=== PATIENT | female | born 1950 | race Caucasian/White ===

== ENCOUNTER → 2016-06-05 | Outpatient (CLI) | payer BC, MEDICARE ==
[2016-06-05 15:05] VITALS: BP 191/93; PULSE 75; RESP 16; TEMP 97.9; BMI 41.3
[2016-06-05 15:57] LABS: EKG EKG PERFORMED
[2016-06-05 16:23] LABS: CH 30.2; HDW 2.57; HGB 14.1 gm/dL (11.4-16.0); MCH 29.4 pg (25.0-35.0); MCHC 31.9 g/dL (31.0-37.0); MCV 91.9 fL (80.0-100.0); Mean Platelet Volume 7.3; RBC 4.79 m/uL (3.80-5.40); RDW 13.7 % (11.5-15.5); WBC 5.9 k/uL (3.8-10.6)
[2016-06-05 16:33] LABS: ALT 58 U/L (9-52); AST 32 U/L (14-36); Alkaline Phosphatase 72 U/L (38-126); Anion Gap 12 mmol/L; Blood Urea Nitrogen 11 mg/dL (7-17); Calcium 10.1 mg/dL (8.4-10.2); Carbon Dioxide 28 mmol/L (22-30); Chloride 105 mmol/L (98-107); Cholesterol 203 mg/dL (<200); Glucose 107 mg/dL (74-99); HDL Cholesterol 40 mg/dL (40-60); Iron 108 ug/dL (37-170); Non-African American GFR(MDRD) >60 (>60 ml/min/1.73 sqM); Potassium 4.7 mmol/L (3.5-5.1); Sodium 145 mmol/L (137-145); Total Bilirubin 0.7 mg/dL (0.2-1.3); Total Protein 7.5 g/dL (6.3-8.2); Triglycerides 219 mg/dL (<150)
[2016-06-05 16:42] LABS: % Iron Saturation 28.6 % (20-50); Total Iron Binding Capacity 378 ug/dL (265-497)
[2016-06-05 17:39] LABS: Vitamin B12 425 pg/mL (239-931)
[2016-06-05 19:48] LABS: Hemoglobin A1C 5.9 % (4.2-6.1)
[2016-06-07 06:42] LABS: Anabasine Urine <2.0 ng/mL (<2.0)
--- NOTE | 2016-07-14 19:48 | P.PN ---
Progress Note - Text DATE OF SERVICE: 06/05/2016 CHIEF COMPLAINT: Bariatric assessment. HISTORY OF PRESENT ILLNESS: Miladys Broussard is a 65-year-old female who presents for initial bariatric assessment. At a height of 5 foot and 1/2 inch, her ideal body weight is 127 pounds. She comes in weighing 215 pounds. Her body mass index is 41.3. As a result of her morbid obesity she has developed additional comorbidities such as hypertensive heart disease. She also has history of obstructive sleep apnea. She has complex pain syndrome. She does take thyroid for her hypothyroidism. She also has hyperlipidemia as a result. She complains of diffuse osteoarthritis. Now she presents for further evaluation and management. She is at present 88 pounds overweight. She is looking into a gastric bypass to address her obesity including the severity of her gastroesophageal reflux disease. PAST MEDICAL HISTORY: 1. Morbid obesity. 2. Gastroesophageal reflux disease. 3. Seasonal allergies. 4. Hypertensive heart disease. 5. Hypothyroidism. 6. Anxiety. 7. Osteoarthritis. 8. Vitamin D deficiency. 9. Hyperlipidemia. 10. Hiatal hernia 11. Previous history of breast cancer. 12. Kidney stones. 13. Stomach ulcers, 14. Fatty liver disease. 15. Diverticulitis. 16. Previous history of myocardial infarction. PAST SURGICAL HISTORY: 1. Heart catheterization. 2. Hysterectomy. 3. Tubal ligation. 4. Left breast lumpectomy. 5. Left laminectomy. 6. Partial hysterectomy. MEDICATIONS: 1. Zanaflex. 2. Vitamin B complex. 3. Cialis. 4. Prilosec. 5. Multivitamin. 6. ( ). 7. Claritin. 8. Lisinopril. 9. Synthroid. 10. ( ). 11. [place] 3. 12. Motrin. 13. Caromasin. 14. ( ). 15. Tenormin. 16. Aspirin. 17. Phenergan. 18. [place]. 19. Lipitor. 20. Tylenol. ALLERGIES: 1. PENICILLIN. 2. HOUSE DUST. 3. GRASS POLLEN. SOCIAL HISTORY: History of alcohol abuse including former tobacco use. FAMILY HISTORY: Pertinent for morbid obesity including hypertension, gastroesophageal reflux disease, heart disease. REVIEW OF SYSTEMS: CONSTITUTIONAL: [place] body weight is 127 pounds with 5 foot and 1/2 frame. Presently 215 pounds. She is 88 pounds overweight. HEENT: No troubles with vision or hearing. Has intermittent dysphagia to solid foods. ENDOCRINE: History of hypothyroidism. No reports of blood sugar glucose intolerance. RESPIRATORY: Former smoker with obstructive sleep apnea. CARDIOVASCULAR: Previous myocardial infarction. Hypertension. GASTROINTESTINAL: Has severe gastroesophageal reflux disease. No reports of blood in stools. MUSCULOSKELETAL: Has diffuse osteoarthritis. Also has fibromyalgia. NEURO: No reports of stroke or seizure disorders. PSYCH: History of depression including anxiety. HEMATOLOGIC: No reports of easy bruising or bleeding. PHYSICAL EXAM: VITAL SIGNS: 97.9, 75, 16, 191/93; 5 feet and 1/2 inch, weight of 215 pounds. Body mass index 41.3. GENERAL: Well-developed female in no acute distress. HEENT: No scleral icterus. Extraocular movements grossly intact. NECK: Supple without lymphadenopathy. CHEST: Nonlabored respirations. CARDIOVASCULAR: Regular rate and regular rhythm. ABDOMEN: Obese, soft without peritoneal signs. Tenderness noted along the lower abdomen. MUSCULOSKELETAL: No clubbing, cyanosis, or edema. NEURO: No focal or lateralizing signs. PSYCH: Affect flat. Alert and oriented to person, place, and time. LABS: Deferred. STUDIES: Upper endoscopy consistent with diaphragmatic hiatal hernia with Hill grade 4 lower esophageal valve. Pathology report consistent with chronic gastritis including gastric polyps. ASSESSMENT: 1. Morbid obesity due to excess calories. 2. Body mass index 41.3. 3. Anxiety. 4. Depression. 5. Gastroesophageal reflux disease. 6. Diaphragmatic hiatal hernia. 7. Obstructive sleep apnea. 8. Hypertensive heart disease. 9. Hypothyroidism. 10. Diffuse osteoarthritis. 11. Bilateral lower abdominal pain. 12. Fibromyalgia. 13. Erosive esophagitis. 14. Intra-abdominal adhesions. PLAN: 1. Recommend a complete bariatric metabolic panel to evaluate for nutritional deficiencies. 2. She has completed upper endoscopy with findings consistent with gastroesophageal reflux disease including erosive esophagitis and diaphragmatic hiatal hernia. Given the severity of her symptoms, surgical options including the gastric bypass was described at length. 3. The [place] [facility] outcomes calculator was reviewed in detail, including benefits and risks of all procedures. Again, she has elected for Raad-en-Y gastric bypass to correct her reflux disease including for her comorbidities related to her morbid obesity. 4. She is pending a psych assessment. 5. Will need a medical risk assessment. 6. Recommend EKG. 7. As she does report increasing low abdominal pain, would also recommend a diagnostic laparoscopy as she also has history of intestinal adhesions and intra-abdominal adhesions. 8. May also benefit from a CT of the abdomen and pelvis with regards to cause of abdominal pain as well. 9. Due to the severity of her abdominal pain, she has elected for a diagnostic laparoscopy. 10. Deep venous thrombosis prophylaxis. 11. Antibiotic prophylaxis. ADDENDUM: Metabolic panel was reviewed, demonstrating no evidence of anemia. Glucose was elevated at 107. Hemoglobin A1c was normal. ALT was elevated at 58. Triglycerides were elevated at 219. Cholesterol was elevated at 203. LDL was elevated at 119. Urine culture was negative. EKG was also obtained demonstrating and confirming a left bundle solis block with left axis deviation. Recommend cardiology risk assessment.
== END | disposition home or self-care (01) ==
LOC: BARWHC3 14:12
PROVIDERS: ATTEND Surgery Plastic and Reconstructive Surgery
DX: Z01.818 Encounter for other preprocedural examination (principal); E66.01 Morbid (severe) obesity due to excess calories; Z68.41 Body mass index [BMI] 40.0-44.9, adult; E89.1 Postprocedural hypoinsulinemia; D50.8 Other iron deficiency anemias; E44.0 Moderate protein-calorie malnutrition; E55.9 Vitamin D deficiency, unspecified; I11.9 Hypertensive heart disease without heart failure; G47.30 Sleep apnea, unspecified
CPT/HCPCS: 80053; 80061; 80323; 82306; 82607; 82728; 82746; 83036; 83540; 83550; 84425; 84443; 85027; 93005; 99201

== ENCOUNTER → 2016-06-17 | Outpatient (CLI) | payer BC, MEDICARE ==
[2016-06-17 10:41] LABS: Blood Urea Nitrogen 15 mg/dL (7-17); Non-African American GFR(MDRD) >60 (>60 ml/min/1.73 sqM)
--- NOTE | 2016-06-17 13:58 | CT ---
EXAMINATION TYPE: CT abdomen pelvis w con DATE OF EXAM: 06/17/2016 12:07 PM COMPARISON: NONE INDICATION: Mid abdomen pain DLP: 1762 mGycm, Automated exposure control for dose reduction was used. CONTRAST: 100 mL of Omnipaque 300. Study performed with Oral Contrast TECHNIQUE: Axial images were obtained from above the diaphragm to the pubic rami in the axial plane a t 5 mm thick sections. Reconstructed images are reviewed on the computer in the coronal plane. FINDINGS: Limited CT sections are obtained the lung bases. The lung bases are clear. CT ABDOMEN: Liver: There is mild fatty infiltration liver. Spleen: Normal Pancreas: Normal Adrenal glands: The adrenal glands are normal. Gallbladder: Normal Kidneys: No masses are evident. No hydronephrosis is present. No cysts are present. Delayed images were obtained through the kidneys, which remain unremarkable. Aorta: Normal Inferior vena cava: Normal. CT PELVIS: Loops of bowel within the abdomen and pelvis are normal. Multiple diverticuli are through the sigm oid colon. No acute diverticulitis is evident. There are loops of bowel which are incompletely disten ded or lack oral contrast limiting their evaluation. Appendix: Normal as visualized. Urinary bladder: Normal. Genitourinary structures: Osseous structures: No suspicious lytic or sclerotic lesions. IMPRESSIONS: 1. Sigmoid diverticulosis. 2. Mild fatty infiltration of the liver.
== END ==
LOC: RADCTMAIN 09:42
PROVIDERS: ATTEND Surgery Plastic and Reconstructive Surgery
DX: K57.30 Diverticulosis of large intestine without perforation or abscess without bleeding (principal); K76.0 Fatty (change of) liver, not elsewhere classified
CPT/HCPCS: 82565; 84520; 74177; 36415; Q9967

== ENCOUNTER → 2016-06-26 | Outpatient (CLI) | payer BC, MEDICARE ==
[2016-06-26 16:39] VITALS: BP 144/78; PULSE 68; RESP 16; TEMP 98.4; BMI 40.4
--- NOTE | 2016-07-31 00:05 | P.PN ---
Progress Note - Text DATE OF SERVICE: 06/26/2016 CHIEF COMPLAINT: Bariatric assessment. HISTORY OF PRESENT ILLNESS: Miladys Broussard is a 65-year-old female. She presented to the bariatric program one month ago. She reports that she has been trying to undergo weight loss for several years with minimal success. She also reports severe gastroesophageal reflux disease as well as sleep apnea and hypertension related to her morbid obesity. At her height of 5 feet and 1/2 inches, her ideal body weight is 127 pounds. Highest weight is 215 pounds. She has lost 5 pounds. Body mass index is 41.4 down to 40.4. PAST MEDICAL HISTORY: 1. Morbid obesity. 2. Gastroesophageal reflux disease. 3. Seasonal allergies. 4. Hypertensive heart disease. 5. Hypothyroidism. 6. Anxiety. 7. Osteoarthritis. 8. Vitamin D deficiency. 9. Hyperlipidemia. 10. Hiatal hernia 11. Previous history of breast cancer. 12. Kidney stones. 13. Stomach ulcers, 14. Fatty liver disease. 15. Diverticulitis. 16. Previous history of myocardial infarction. PAST SURGICAL HISTORY: 1. Heart catheterization. 2. Hysterectomy. 3. Tubal ligation. 4. Left breast lumpectomy. 5. Left laminectomy. 6. Partial hysterectomy. MEDICATIONS: 1. Zanaflex. 2. Vitamin D. 3. Cialis. 4. Phenergan. 5. Prilosec. 6. Multivitamin. 7. ( ). 8. Claritin. 9. Lisinopril. 10. Synthroid. 11. Lorazepam. 12. [place] 3. 13. Motrin. 14. Garlic.. 15. Aromasin. 16. Vitamin D. 17. Lipitor. 18. Tenormin. 19. Baby aspirin. 20. Tylenol. ALLERGIES: 1. PENICILLIN. 2. HOUSE DUST. 3. GRASS POLLEN. SOCIAL HISTORY: History of alcohol abuse including former tobacco use. FAMILY HISTORY: Pertinent for morbid obesity including hypertension, gastroesophageal reflux disease, heart disease. REVIEW OF SYSTEMS: CONSTITUTIONAL: Total weight loss of 5 pounds from 215 pounds to 210 pounds. [place] body weight of 127 pounds. Highest weight 215 pounds. Body mass index initially 41.4 down to 40.4. GASTROINTESTINAL: Has severe gastroesophageal reflux disease. Also reports multiple abdominal surgeries and worsening epigastric abdominal pain. RESPIRATORY: History of obstructive sleep apnea. HEENT: No troubles with vision or hearing. Has intermittent dysphagia to solid foods. ENDOCRINE: History of hypothyroidism. No reports of blood sugar glucose intolerance. CARDIOVASCULAR: Previous myocardial infarction. Hypertension. MUSCULOSKELETAL: Has diffuse osteoarthritis. Also has fibromyalgia. NEURO: No reports of stroke or seizure disorders. PSYCH: History of depression including anxiety. HEMATOLOGIC: No reports of easy bruising or bleeding. PHYSICAL EXAM: VITAL SIGNS: 98.4, 68, 16, 144/70; 5 feet and a half, 210 pounds. Body mass index of 40.4. ABDOMEN: Soft, tenderness along the epigastrium. No peritonitis. GENERAL: Well-developed female in no acute distress. HEENT: No scleral icterus. Extraocular movements grossly intact. NECK: Supple without lymphadenopathy. CHEST: Nonlabored respirations. CARDIOVASCULAR: Regular rate and regular rhythm. MUSCULOSKELETAL: No clubbing, cyanosis, or edema. NEURO: No focal or lateralizing signs. PSYCH: Affect flat. Alert and oriented to person, place, and time. LABS: Hemoglobin was normal at 14.1. Glucose was elevated at 107. Hemoglobin A1c was normal at 5.9. ALT was elevated at 58. Triglycerides elevated at 219. Cholesterol is elevated at 203. LDL was elevated at 119. EKG demonstrates left bundle branch block. ASSESSMENT: 1. Morbid obesity due to excess calories. 2. Body mass index reduced from 41.4 down to 40.4. 3. Anxiety. 4. Depression. 5. Severe gastroesophageal reflux disease. 6. Diaphragmatic hiatal hernia. 7. Obstructive sleep apnea. 8. Hypertensive heart disease. 9. Hypothyroidism. 10. Diffuse osteoarthritis. 11. Bilateral lower abdominal pain. 12. Fibromyalgia. 13. Erosive esophagitis. 14.History of multiple intra-abdominal surgeries. 15. Increased diffuse abdominal pain. 16. Abnormal EKG. PLAN: 1. Recommend pursuing a diagnostic laparoscopy. With a history of multiple abdominal surgeries, her pain is likely due to intestinal adhesions for abdominal pain. 2. She reports severe heartburn despite multiple medications to control her reflux. Surgical options between band, sleeve and Raad-en-Y gastric bypass were described in detail. [place] bariatric collaborative data was also reviewed in detail. She has elected for a gastric bypass. 3. Recommend treatment for obstructive sleep apnea. 4. I recommend also complete cardiac assessment with a history of abnormal. EKG. 5. Per insurance guidelines, will also continue with dietary surveillance and counseling. 6. Overall she has responded well, already losing 5 pounds.
== END | disposition home or self-care (01) ==
LOC: BARWHC3 13:59
PROVIDERS: ATTEND Surgery Plastic and Reconstructive Surgery
DX: Z01.818 Encounter for other preprocedural examination (principal); E66.01 Morbid (severe) obesity due to excess calories; Z68.41 Body mass index [BMI] 40.0-44.9, adult; G47.33 Obstructive sleep apnea (adult) (pediatric); I10 Essential (primary) hypertension; Z79.899 Other long term (current) drug therapy; Z88.0 Allergy status to penicillin; Z91.048 Other nonmedicinal substance allergy status; F41.9 Anxiety disorder, unspecified; F32.9 Major depressive disorder, single episode, unspecified; K44.9 Diaphragmatic hernia without obstruction or gangrene; I11.9 Hypertensive heart disease without heart failure; E03.9 Hypothyroidism, unspecified; M19.90 Unspecified osteoarthritis, unspecified site; R10.31 Right lower quadrant pain; R10.32 Left lower quadrant pain; M79.7 Fibromyalgia; K22.10 Ulcer of esophagus without bleeding; R94.31 Abnormal electrocardiogram [ECG] [EKG]; K21.0 Gastro-esophageal reflux disease with esophagitis; I44.7 Left bundle-branch block, unspecified; I25.2 Old myocardial infarction
CPT/HCPCS: 99211

== ENCOUNTER 2016-06-28 10:12 | Day surgery (SDC) | payer BC, MEDICARE ==
[2016-06-19 16:08] VITALS: BMI 39.1
--- NOTE | 2016-06-27 20:49 | P.GSHP ---
History of Present Illness H&P Date: 06/28/16 CHIEF COMPLAINT: History of intra-abdominal adhesions HISTORY OF PRESENT ILLNESS: The patient is a 65-year-old female who presents with history of intra-abdominal adhesions from multiple prior surgeries including increasing abdominal pain. She now presents for diagnostic laparoscopy including lysis of adhesions. PAST MEDICAL HISTORY: Please see list. PAST SURGICAL HISTORY: Please see list. MEDICATIONS: Please see list. ALLERGIES: Please see list. SOCIAL HISTORY: No illicit drug use FAMILY HISTORY: No reports of Crohn disease or ulcerative colitis. REVIEW OF ORGAN SYSTEMS: CONSTITUTIONAL: No reports of fevers or chills. GI: Denies any blood in stools or constipation. PHYSICAL EXAM: VITAL SIGNS: Stable GENERAL: Well-developed pleasant and in no acute distress. HEENT: No scleral icterus. Extraocular movements grossly intact. Moist buccal mucosa. NECK: Supple without lymphadenopathy. CHEST: Unlabored respirations. Equal bilateral excursions. CARDIOVASCULAR: Regular rate and rhythm. Distal 2+ pulses. ABDOMEN: Soft, diffuse abdominal tenderness. No peritonitis. MUSCULOSKELETAL: No clubbing, cyanosis, or edema. ASSESSMENT: 1. Diffuse abdominal pain. 2. History of multiple abdominal surgeries. 3. Intra-abdominal adhesions. PLAN: 1. Diagnostic laparoscopy with lysis of adhesions were described in detail including risk of injury to the intestine, need for further surgery, and open technique. 2. DVT prophylaxis. 3. Antibiotic prophylaxis. Past Medical History Past Medical History: Asthma, Cancer, Fibromyalgia, GERD/Reflux, Hyperlipidemia , Hypertension, Myocardial Infarction ([place]), Osteoarthritis (OA), Thyroid Disorder Additional Past Medical History / Comment(s): BREAST CANCER, IRREGULAR HEARTBEAT ,MACULAR DEGENERATION, KIDNEY STONE, Last Myocardial Infarction Date:: 2009 History of Any Multi-Drug Resistant Organisms: None Reported Past Surgical History: Heart Catheterization, Hysterectomy, Tubal Ligation Additional Past Surgical History / Comment(s): LT LUMPECTOMY AND LYMPH NODE REMOVED THYROID NODULE.SLYSIS OF ADHESIONS Past Anesthesia/Blood Transfusion Reactions: Motion Sickness Past Psychological History: Anxiety, Depression Smoking Status: Former smoker Past Alcohol Use History: Rare Additional Past Alcohol Use History / Comment(s): STARTED SMOKING AT AGE 25, SMOKED 1 PPD, QUIT 2009 Past Drug Use History: None Reported - Past Family History Father Family Medical History: Cancer, Myocardial Infarction ([place]) Additional Family Medical History / Comment(s): , LUNG CA Mother Family Medical History: Cancer, Hypertension Additional Family Medical History / Comment(s): SKIN CANCER Medications and Allergies Home Medications Medication Instructions Recorded Confirmed Type Atenolol [Tenormin] 25 mg PO DAILY 01/04/14 06/26/16 History Ibuprofen [Motrin] 800 mg PO BID PRN 01/04/14 06/26/16 History LORazepam [Lorazepam] 1 mg PO TID PRN 01/04/14 06/26/16 History Lisinopril [Lisinopril] 20 mg PO HS 01/04/14 06/26/16 History tiZANidine [Zanaflex] 4 mg PO BID PRN 01/04/14 06/26/16 History Aspirin [Adult Low Dose Aspirin EC] 81 mg PO DAILY 03/25/16 06/26/16 History Cholecalciferol [Vitamin D3] 1,000 unit PO DAILY 03/25/16 06/26/16 History Exemestane [Aromasin] 25 mg PO DAILY 03/25/16 06/26/16 History Garlic 1 each PO DAILY 03/25/16 06/26/16 History Krill/Om-3/Dha/Epa/Phospho/Ast 1 each PO DAILY 03/25/16 06/26/16 History [[place]-3 Krill Oil 300 mg Sfgl] Levothyroxine Sodium [Synthroid] 50 mcg PO DAILY 03/25/16 06/26/16 History Loratadine [Claritin] 10 mg PO DAILY 03/25/16 06/26/16 History Milk Thistle 175 mg PO BID 03/25/16 06/26/16 History Multivitamins, Thera [Multivitamin] 1 tab PO DAILY 03/25/16 06/26/16 History Omeprazole [PriLOSEC] 40 mg PO DAILY 03/25/16 06/26/16 History Vitamin B Complex 1 each PO DAILY 03/25/16 06/26/16 History Acetaminophen Tab [Tylenol Tab] 1,000 mg PO Q6HR PRN 06/19/16 06/26/16 History Atorvastatin [Lipitor] 80 mg PO HS 06/19/16 06/26/16 History Krtw-Bjlb-Alc 6.25-5-10Mg/5Ml 5 ml PO Q6H PRN 06/19/16 06/26/16 History [Phenergan VC with Codeine] Allergies Allergy/AdvReac Type Severity Reaction Status Date / Time Penicillins Allergy Dyspnea Verified 06/26/16 15:28 grass pollen-perennial rye, AdvReac Itching Verified 06/26/16 15:28 standar house dust AdvReac Itching Verified 06/26/16 15:28
[~2016-06-28 10:12] MED LIST: ACETAMINOPHEN IV (For NPO) 1,000 MG in EMPTY BAG 1 BAG IVPB ONE; DEXAMETHASONE SOD PHOSPHATE 10 MG/ML 1 ML VIAL IV ONE; HEPARIN SODIUM,PORCINE 5,000 UNIT/ML 1 ML VIAL SQ ONE; HYDROmorphone 1 MG/ML 1 ML SYRINGE IVP PRN; LACTATED RINGERS 1,000 ML IV SCH; MIDAZOLAM 2 MG/2 ML VIAL IV PRN; ONDANSETRON 4 MG/2 ML VIAL IVP ONE; Pre Op ABX Message 1 EACH MISC MISCELLANE ONE; SCOPOLAMINE 1.5MG/72HR PATCH TRANSDERM ONE
[2016-06-28] MEDS ORDERED: FAMOTIDINE 20 MG/2 ML VIAL IV STA (11:01)
[2016-06-28] MEDS ORDERED: LIDOCAINE 1% 20 ML VIAL (10MG/ML) FOR IV START INTRADERMA ONE ×2 (11:04→11:16)
[2016-06-28] MEDS ORDERED: LIDOCAINE 1% INJ 10MG/ML (20 ML MDV) ONE (11:37)
[2016-06-28] MEDS ORDERED: ROCURONIUM BROMIDE 10 MG/ML 10 ML VIAL IV ONE (11:37)
[2016-06-28] MEDS ORDERED: SUCCINYLCHOLINE CHLORIDE 100 MG/5 ML SYR IV ONE (11:37)
[2016-06-28] MEDS ORDERED: GLYCOPYRROLATE 0.2 MG/ML 2 ML VIAL ONE (11:37)
[2016-06-28] MEDS ORDERED: MIDAZOLAM 2 MG/2 ML VIAL ONE (11:37)
[2016-06-28] MEDS ORDERED: fentaNYL (PF) 50 MCG/ML 2 ML AMP ONE (11:37)
[2016-06-28] MEDS ORDERED: PROPOFOL 10 MG/ML 20 ML VIAL IV ONE (11:37)
[2016-06-28] MEDS ORDERED: NEOSTIGMINE 1 MG/ML 10 ML VIAL ONE (11:37)
[2016-06-28] MEDS ORDERED: SODIUM CHLORIDE 0.9% 50 ML with ceFAZolin 2,000 MG IV ONE ×2 (12:04)
[2016-06-28] MEDS ORDERED: BUPIVACAIN-EPI 0.25%-1:200,000 30 ML VIAL SQ ONE (12:14)
[2016-06-28] MEDS ORDERED: NALOXONE 0.4 MG/ML 1 ML VIAL IV PRN (12:33)
[2016-06-28] MEDS ORDERED: HYDROcodone/APAP 5-325MG 1 EACH TAB PO PRN (12:33)
--- NOTE | 2016-06-28 12:33 | P.PCN ---
Date of Procedure: 06/28/16 Preoperative Diagnosis: Diffuse abdominal pain, history of abdominal surgery, peritoneal adhesions Postoperative Diagnosis: Same, peritoneal adhesions greater omentum to the lower abdominal wall, incisional hernia reducible, initial Procedure(s) Performed: Laparoscopic lysis of adhesions Anesthesia: GETA, local Surgeon: Analisa Savage Estimated Blood Loss (ml): 2 Pathology: none sent Condition: stable Disposition: PACU Operative Findings: Diffuse abdominal adhesions greater omentum to the lower abdominal wall. Reducible incisional hernia 2 cm without incarcerated tissue. No large hiatus defect.
[2016-06-28] MEDS ORDERED: KETOROLAC 30 MG/ML 1 ML VIAL IVP SCH (12:45)
[2016-06-28 12:48] VITALS: TEMP 97.6
[2016-06-28 13:50] VITALS: RESP 18
[2016-06-28] MEDS ORDERED: HYDROcodone/APAP 5-325MG 1 EACH TAB PO ONE (13:50)
[2016-06-28 14:01] VITALS: PULSE 56
[2016-06-28 14:08] VITALS: BP 112/62
--- NOTE | 2016-06-29 22:12 | P.OP ---
Date of Procedure: 06/28/16 Description of Procedure: SURGEON: TOSHA SANCHEZ MD DONOR RECRUITMENT MANAGER: YUE GIORDANO PREOPERATIVE DIAGNOSES: 1. Diffuse abdominal pain. 2. History of previous abdominal surgery 3. Peritoneal adhesions. 4. Asthma. 5. Morbid obesity due to excess calories. 6. BMI 39.1 7. Gastroesophageal reflux disease. 8. Hyperlipidemia. 9. Myocardial infarction. 10. Thyroid disorder. 11. Osteoarthritis. 12. History of breast cancer. 13. Macular degeneration. 14. History of chronic pain. 15. History of kidney stones. 16. Anxiety. 17. Depression. 18. Hypertensive heart disease with cardiomyopathy. 19. Fibromyalgia. 20. Hyperlipidemia. POSTOPERATIVE DIAGNOSES: 1. Diffuse abdominal pain. 2. History of previous abdominal surgery 3. Peritoneal adhesions. 4. Asthma. 5. Morbid obesity due to excess calories. 6. BMI 39.1 7. Gastroesophageal reflux disease. 8. Hyperlipidemia. 9. Myocardial infarction. 10. Thyroid disorder. 11. Osteoarthritis. 12. History of breast cancer. 13. Macular degeneration. 14. History of chronic pain. 15. History of kidney stones. 16. Anxiety. 17. Depression. 18. Severe left lower quadrant omentum to abdominal wall adhesions. 19. Severe right lower quadrant greater omentum to abdominal adhesions. 20. Reducible incisional hernia, initial. 21. Hypertensive heart disease with cardiomyopathy. 22. Fibromyalgia. 23. Hyperlipidemia. PROCEDURES PERFORMED: 1. Diagnostic laparoscopy. 2. Laparoscopic lysis of adhesions over 60 minutes of abdominal wall and omentum , left lower quadrant and right lower quadrant. ANESTHESIA: General with 30 mL 0.25% Marcaine with epinephrine. ESTIMATED BLOOD LOSS: 2 mL. SPECIMENS REMOVED: None. COMPLICATIONS: None. OPERATIVE FINDINGS: 1. Severe greater omental adhesions to the abdominal wall of the left lower quadrant. 2. Severe greater omental adhesions of the right lower quadrant to abdominal wall from prior pelvic surgery. 3. Reducible incisional hernia 3 cm without incarcerated tissue. 4. No large hiatus defect. INDICATIONS: The patient is a 65-year-old female who presents with chronic abdominal pain including prior history of severe intra-abdominal adhesions of the abdomen and pelvis. She has developed increased abdominal gas bloat including bilateral lower quadrant abdominal pain for which she sought surgical intervention. Multiple diagnostic studies were also obtained including endoscopies were completed. Given the severity of her symptoms, she elected for surgical intervention. Benefits and risks, including possibility of open technique were described at length. Informed consent was obtained. DESCRIPTION OF PROCEDURE: Patient was brought to the operating room, laid in supine position. After general induction, the abdomen was prepped and draped in standard sterile fashion. Prior to incision, a timeout protocol was confirmed with surgical team regarding patient's name including procedure to be performed. Preoperative medications including antibiotics were given. Additionally, bilateral SCDs including heparin 5000 units was administered. A 5 mm laparoscopic trocar entry performed of the left upper quadrant after anesthetizing the skin with local anesthetic. Diagnostic laparoscopy demonstrated moderate adhesions of the left lower pelvis as well as the right lower quadrant. No gross small bowel dilatation was encountered. Primarily greater omental adhesions were found of the left lower quadrant and right lower quadrant. Two additional 5-mm trocars were placed: one placed along the right lateral abdominal wall and the other at the epigastrium. The patient was placed in Trendelenburg position with the right side up. Initial attention was brought to the left lower quadrant whereby using a combination of blunt dissection with a Kittner as well as sharp dissection with a Sonicision and scissors were used to take the omental adhesions off the abdominal wall and pelvis. No enterotomy or colotomy had occured as the bowel was not involved. Along the abdominal wall, a reducible 3-cm incisional defect at the umbilicus was found. The base of the cecum was without inflammation. No enterotomies occurred. No evidence of bowel obstruction or small bowel dilatation was found. Final inspection of the abdomen demonstrated adequate hemostasis including no enterotomies. All instruments and pneumoperitoneum were evacuated from the abdominal cavity. A total of 30 mL 0.25% Marcaine with epinephrine was infiltrated in all wounds for postop analgesia. Dermabond was applied to the skin after reapproximating the incisions with 4-0 Monocryl as described. At the end of the procedure, needle, sponge, and instrument count was verified correct by transportation refrigeration technician. The patient had tolerated the procedure well, was taken to the postanesthesia care unit in stable condition. Intraoperative abdominal films were described and discussed with her family who were overall pleased with her level of care.
== END 2016-06-28 14:30 | disposition home or self-care (01) ==
LOC: OR 10:12
PROVIDERS: ATTEND Surgery Plastic and Reconstructive Surgery
DX: K66.0 Peritoneal adhesions (postprocedural) (postinfection) (principal); I25.10 Atherosclerotic heart disease of native coronary artery without angina pectoris; I10 Essential (primary) hypertension; F41.9 Anxiety disorder, unspecified; E78.5 Hyperlipidemia, unspecified; E07.9 Disorder of thyroid, unspecified; K21.9 Gastro-esophageal reflux disease without esophagitis; M79.7 Fibromyalgia; I25.2 Old myocardial infarction; Z88.0 Allergy status to penicillin; Z87.891 Personal history of nicotine dependence; Z85.3 Personal history of malignant neoplasm of breast; Z79.1 Long term (current) use of non-steroidal anti-inflammatories (NSAID); Z79.891 Long term (current) use of opiate analgesic; Z79.899 Other long term (current) drug therapy
CPT/HCPCS: 83735; 49329; J2250; J1644; J1100; J2710; J2405; J2001; J3010; J0690; J0131; J0330; J2704

== ENCOUNTER → 2016-08-19 | Outpatient (CLI) | payer BC, MEDICARE ==
[2016-08-19 13:17] VITALS: BMI 41.6
== END | disposition home or self-care (01) ==
LOC: BARWHC3 08:45
PROVIDERS: ATTEND Surgery Plastic and Reconstructive Surgery
DX: E66.01 Morbid (severe) obesity due to excess calories (principal)
CPT/HCPCS: 97804

== ENCOUNTER → 2016-09-18 | Outpatient (CLI) | payer BC, MEDICARE ==
[2016-09-18 16:06] VITALS: BP 186/92; PULSE 72; RESP 16; TEMP 98.2; BMI 41.8
--- NOTE | 2016-10-19 12:11 | P.PN ---
Progress Note - Text DATE OF SERVICE: 09/18/2016 CHIEF COMPLAINT: Bariatric assessment. HISTORY OF PRESENT ILLNESS: Miladys Broussard is a 55 year old female with longstanding history of morbid obesity including severe gastroesophageal reflux disease. She developed several comorbidities related to her obesity as well as hypertension, osteoarthritis of the bilateral hips and knees as well as obstructive sleep apnea. Given the severity of her reflux disease, she is also evaluating for the Raad-En-Y gastric bypass. At her height of 5 feet 1 1/ 2 inches, her ideal body weight is 131 pounds. For her weight today she comes in weighing 225 pounds. Body mass index is now 41.8. Now she presents for further evaluation and management. She is 94 pounds overweight. PAST MEDICAL HISTORY: 1. Morbid obesity. 2. Gastroesophageal reflux disease. 3. Seasonal allergies. 4. Hypertensive heart disease. 5. Hypothyroidism. 6. Anxiety. 7. Osteoarthritis. 8. Vitamin D deficiency. 9. Hyperlipidemia. 10. Hiatal hernia 11. Previous history of breast cancer. 12. Kidney stones. 13. Stomach ulcers, 14. Fatty liver disease. 15. Diverticulitis. 16. Previous history of myocardial infarction. PAST SURGICAL HISTORY: 1. Heart catheterization. 2. Hysterectomy. 3. Tubal ligation. 4. Left breast lumpectomy. 5. Left laminectomy. 6. Partial hysterectomy. 7. Diagnostic laparoscopy, lysis of adhesions. MEDICATIONS: 1. Zanaflex. 2. Vitamin B complex. 3. Prilosec. 4. Multivitamin. 5. ( ). 6. Claritin. 7. Lisinopril. 8. Synthroid. 9. Lorazepam. 10. [place]-3. 11. Motrin. 12. Garlic. 13. Aromasin. 14. Vitamin D. 15. Lipitor. 16. Tenormin. 17. Baby aspirin. ALLERGIES: 1. PENICILLIN. 2. HOUSE DUST. 3. GRASS POLLEN. SOCIAL HISTORY: History of alcohol abuse including former tobacco use. FAMILY HISTORY: Pertinent for morbid obesity including hypertension, gastroesophageal reflux disease, heart disease. REVIEW OF SYSTEMS: CONSTITUTIONAL: Highest present weight of 225 pounds. Body mass index 41.8. She is 94 pounds overweight. [place] body weight of 127 pounds. GASTROINTESTINAL: Has severe gastroesophageal reflux disease. Also reports multiple abdominal surgeries and worsening epigastric abdominal pain. RESPIRATORY: History of obstructive sleep apnea. HEENT: No troubles with vision or hearing. Has intermittent dysphagia to solid foods. ENDOCRINE: History of hypothyroidism. No reports of blood sugar glucose intolerance. CARDIOVASCULAR: Previous myocardial infarction. Hypertension. MUSCULOSKELETAL: Has diffuse osteoarthritis. Also has fibromyalgia. NEURO: No reports of stroke or seizure disorders. PSYCH: History of depression including anxiety. HEMATOLOGIC: No reports of easy bruising or bleeding. PHYSICAL EXAM: VITAL SIGNS: 98.2, 73, 16, 106/92, 5 feet 1.5 inches, 225 pounds. Body mass index 41.8. ABDOMEN: Abdomen is soft, nontender, nondistended. GENERAL: Well-developed female in no acute distress. HEENT: No scleral icterus. Extraocular movements grossly intact. NECK: Supple without lymphadenopathy. CHEST: Nonlabored respirations. CARDIOVASCULAR: Regular rate and regular rhythm. MUSCULOSKELETAL: No clubbing, cyanosis, or edema. NEURO: No focal or lateralizing signs. PSYCH: Affect flat. Alert and oriented to person, place, and time. Labs: Previous hemoglobin normal at 14.1. ALT elevated at 58. Triglycerides elevated at 219, cholesterol elevated at 203. LDL elevated at 119. Hemoglobin A1C was 5.9%. ASSESSMENT: 1. Morbid obesity due to excess calories. 2. Body mass index 41.8. 3. Anxiety. 4. Depression. 5. Severe gastroesophageal reflux disease. 6. Diaphragmatic hiatal hernia. 7. Obstructive sleep apnea. 8. Hypertensive heart disease. 9. Hypothyroidism. 10. Diffuse osteoarthritis. 11. Bilateral lower abdominal pain. 12. Fibromyalgia. 13. Erosive esophagitis. 14.History of multiple intra-abdominal surgeries. 15. Abnormal EKG. 16. Metabolic syndrome. PLAN: 1. She has gone thru medical supervised weight loss and despite attempts, still presents with morbid obesity, uncontrolled. 2. She is pending cardiac risk assessment with her consulting marine engineer. 3. Surgical intervention among a band, sleeve and Raad-En-Y gastric bypass were reviewed in detail. She has elected for Raad-En-Y gastric bypass. 4. Benefits and risks of surgical intervention was reviewed in detail including leaks, stricture, nutritional deficiencies as well as infection. 5. Recommend inpatient hospitalization greater than two nights. 6. DVT prophylaxis. 7. Antibiotic prophylaxis. 8. Recommend treatment for obstructive sleep apnea. 9. Recommend proceeding with surgical intervention once cardiac risk assessment is completed.
== END | disposition home or self-care (01) ==
LOC: BARWHC3 15:00
PROVIDERS: ATTEND Surgery Plastic and Reconstructive Surgery
DX: Z48.815 Encounter for surgical aftercare following surgery on the digestive system (principal); E66.01 Morbid (severe) obesity due to excess calories; F41.9 Anxiety disorder, unspecified; F32.9 Major depressive disorder, single episode, unspecified; K21.9 Gastro-esophageal reflux disease without esophagitis; K44.9 Diaphragmatic hernia without obstruction or gangrene; G47.33 Obstructive sleep apnea (adult) (pediatric); I11.9 Hypertensive heart disease without heart failure; E03.9 Hypothyroidism, unspecified; M19.90 Unspecified osteoarthritis, unspecified site; M79.1 Myalgia; K20.9 Esophagitis, unspecified; E55.9 Vitamin D deficiency, unspecified; E78.5 Hyperlipidemia, unspecified; Z79.1 Long term (current) use of non-steroidal anti-inflammatories (NSAID); Z79.899 Other long term (current) drug therapy; Z79.811 Long term (current) use of aromatase inhibitors; Z79.82 Long term (current) use of aspirin; Z88.0 Allergy status to penicillin; Z91.048 Other nonmedicinal substance allergy status; Z68.41 Body mass index [BMI] 40.0-44.9, adult; Z98.84 Bariatric surgery status
CPT/HCPCS: 99211

== ENCOUNTER → 2016-10-09 | Outpatient (CLI) | payer BC, MEDICARE ==
[2016-10-09 16:33] VITALS: BP 127/60; PULSE 82; RESP 16; TEMP 98; BMI 41.5
--- NOTE | 2016-10-23 16:06 | P.PN ---
Progress Note - Text DATE OF SERVICE: 10/09/2016 CHIEF COMPLAINT: Bariatric assessment. HISTORY OF PRESENT ILLNESS: Miladys Broussard is a 65 year old female with morbid obesity and severe gastroesophageal reflux disease. She has developed hypertension, osteoarthritis of the bilateral hips and knees as well as obstructive sleep apnea. Given the severity of her reflux disease, she is also evaluating for the Raad-En-Y gastric bypass. She is currently on a high- protein low caloric diet to address packed medically and to accelerate weight loss. At her height of 5 feet 1 1/2 inches, her ideal body weight is 131 pounds. For her weight today she comes in weighing 223 pounds. She has lost 2 pounds in 3 weeks. Body mass index is now 41.5. She is 92 pounds overweight. PAST MEDICAL HISTORY: 1. Morbid obesity. 2. Gastroesophageal reflux disease. 3. Seasonal allergies. 4. Hypertensive heart disease. 5. Hypothyroidism. 6. Anxiety. 7. Osteoarthritis. 8. Vitamin D deficiency. 9. Hyperlipidemia. 10. Hiatal hernia 11. Previous history of breast cancer. 12. Kidney stones. 13. Stomach ulcers, 14. Fatty liver disease. 15. Diverticulitis. 16. Previous history of myocardial infarction. PAST SURGICAL HISTORY: 1. Heart catheterization. 2. Hysterectomy. 3. Tubal ligation. 4. Left breast lumpectomy. 5. Left laminectomy. 6. Partial hysterectomy. 7. Diagnostic laparoscopy, lysis of adhesions. MEDICATIONS: 1. Zanaflex. 2. Vitamin B complex. 3. Prilosec. 4. Multivitamin. 5. ( ). 6. Claritin. 7. Lisinopril. 8. Synthroid. 9. Lorazepam. 10. [place]-3. 11. Motrin. 12. Garlic. 13. Aromasin. 14. Vitamin D. 15. Lipitor. 16. Tenormin. 17. Baby aspirin. ALLERGIES: 1. PENICILLIN. 2. HOUSE DUST. 3. GRASS POLLEN. SOCIAL HISTORY: History of alcohol abuse including former tobacco use. FAMILY HISTORY: Pertinent for morbid obesity including hypertension, gastroesophageal reflux disease, heart disease. REVIEW OF SYSTEMS: CONSTITUTIONAL: At her height of 5 feet 1 1/2 inches, her ideal body weight is 131 pounds. For her weight today she comes in weighing 223 pounds. She has lost 2 pounds in 3 weeks. Body mass index is now 41.5. She is 92 pounds overweight. GASTROINTESTINAL: Has severe gastroesophageal reflux disease. Also reports multiple abdominal surgeries and worsening epigastric abdominal pain. RESPIRATORY: History of obstructive sleep apnea. HEENT: No troubles with vision or hearing. Has intermittent dysphagia to solid foods. ENDOCRINE: History of hypothyroidism. No reports of blood sugar glucose intolerance. CARDIOVASCULAR: Previous myocardial infarction. Hypertension. MUSCULOSKELETAL: Has diffuse osteoarthritis. Also has fibromyalgia. NEURO: No reports of stroke or seizure disorders. PSYCH: History of depression including anxiety. HEMATOLOGIC: No reports of easy bruising or bleeding. PHYSICAL EXAM: VITAL SIGNS: 5 feet 1.5 inches, 223 pounds. Body mass index 41.5. Vital Signs Temp 98.0 F 10/09/16 16:29 Pulse 82 10/09/16 16:29 Resp 16 10/09/16 16:29 BP 127/60 10/09/16 16:29 Pulse Ox ABDOMEN: Abdomen is soft, nontender, nondistended. GENERAL: Well-developed female in no acute distress. HEENT: No scleral icterus. Extraocular movements grossly intact. NECK: Supple without lymphadenopathy. CHEST: Nonlabored respirations. CARDIOVASCULAR: Regular rate and regular rhythm. MUSCULOSKELETAL: No clubbing, cyanosis, or edema. NEURO: No focal or lateralizing signs. PSYCH: Affect flat. Alert and oriented to person, place, and time. Labs: Previous hemoglobin normal at 14.1. ALT elevated at 58. Triglycerides elevated at 219, cholesterol elevated at 203. LDL elevated at 119. Hemoglobin A1C was 5.9%. ASSESSMENT: 1. Morbid obesity due to excess calories. 2. Body mass index 41.5. 3. Anxiety. 4. Depression. 5. Severe gastroesophageal reflux disease. 6. Diaphragmatic hiatal hernia. 7. Obstructive sleep apnea. 8. Hypertensive heart disease. 9. Hypothyroidism. 10. Diffuse osteoarthritis. 11. Bilateral lower abdominal pain. 12. Fibromyalgia. 13. Erosive esophagitis. 14. History of multiple intra-abdominal surgeries. 15. Abnormal EKG. 16. History of peritoneal adhesions. PLAN: 1. Recommend completion of medical risk assessment. 2. Two-week high-protein low caloric diet to address hepatomegaly. 3. She has a symptomatic diaphragmatic hernia which may be repaired time of her operation. 4. An 8 page second-generation bariatric consent form was reviewed in detail. She is elected for a Raad-en-Y gastric bypass. 5. Inpatient hospitalization over 2 days. 6. DVT prophylaxis. 7. Antibiotic prophylaxis. 8. Possibility of robotic approach was also reviewed.
== END | disposition home or self-care (01) ==
LOC: BARWHC3 16:04
PROVIDERS: ATTEND Surgery Plastic and Reconstructive Surgery
DX: Z48.815 Encounter for surgical aftercare following surgery on the digestive system (principal); E66.01 Morbid (severe) obesity due to excess calories; Z68.41 Body mass index [BMI] 40.0-44.9, adult; F41.9 Anxiety disorder, unspecified; F32.9 Major depressive disorder, single episode, unspecified; K21.9 Gastro-esophageal reflux disease without esophagitis; K44.9 Diaphragmatic hernia without obstruction or gangrene; G47.33 Obstructive sleep apnea (adult) (pediatric); I11.9 Hypertensive heart disease without heart failure; E03.9 Hypothyroidism, unspecified; J30.2 Other seasonal allergic rhinitis; E55.9 Vitamin D deficiency, unspecified; E78.5 Hyperlipidemia, unspecified; Z79.899 Other long term (current) drug therapy; Z79.1 Long term (current) use of non-steroidal anti-inflammatories (NSAID); Z79.811 Long term (current) use of aromatase inhibitors; Z79.82 Long term (current) use of aspirin; Z88.0 Allergy status to penicillin; Z91.048 Other nonmedicinal substance allergy status; Z98.84 Bariatric surgery status
CPT/HCPCS: 99211

== ENCOUNTER 2016-11-08 13:05 | Inpatient (IN) | payer BC, MEDICARE ==
[2016-11-21] MEDS ORDERED: GENTAMICIN 360 MG in SODIUM CHLORIDE 0.9% 100 ML IVPB ONE (05:00)
[2016-11-21] MEDS ORDERED: CLINDAMYCIN 900 MG in DEXTROSE 5% IN WATER 50 ML IVPB ONE ×2 (05:00)
[2016-11-21] MEDS ORDERED: MIDAZOLAM 2 MG/2 ML VIAL IV PRN (05:56)
[2016-11-21] MEDS ORDERED: SCOPOLAMINE 1.5MG/72HR PATCH TRANSDERM ONE (05:56)
[2016-11-21] MEDS ORDERED: LIDOCAINE 1% 20 ML VIAL (10MG/ML) FOR IV START INTRADERMA PRN (05:56)
[2016-11-21] MEDS ORDERED: HYDROmorphone 1 MG/ML 1 ML SYRINGE IVP PRN (05:56)
[2016-11-21] MEDS ORDERED: CHLORHEXIDINE GLUCONATE 15 ML CUP MUCOUS MEM ONE (05:56)
[2016-11-21] MEDS ORDERED: DEXAMETHASONE SOD PHOSPHATE 10 MG/ML 1 ML VIAL IV ONE (05:56)
--- NOTE | 2016-11-21 06:22 | P.GSHP ---
History of Present Illness H&P Date: 11/21/16 CHIEF COMPLAINT: Morbid obesity. HISTORY OF PRESENT ILLNESS: Miladys Broussard is a 65 year old female with morbid obesity and severe gastroesophageal reflux disease. She has developed hypertension, osteoarthritis of the bilateral hips and knees as well as obstructive sleep apnea. Given the severity of her reflux disease, she is evaluating for the Raad-En-Y gastric bypass. At her height of 5 feet 1 1/2 inches, her ideal body weight is 131 pounds. For her previous weight she came in weighing 223 pounds. Body mass index was now 41.5. PAST MEDICAL HISTORY: 1. Morbid obesity. 2. Gastroesophageal reflux disease. 3. Seasonal allergies. 4. Hypertensive heart disease. 5. Hypothyroidism. 6. Anxiety. 7. Osteoarthritis. 8. Vitamin D deficiency. 9. Hyperlipidemia. 10. Hiatal hernia 11. Previous history of breast cancer. 12. Kidney stones. 13. Stomach ulcers, 14. Fatty liver disease. 15. Diverticulitis. 16. Previous history of myocardial infarction. PAST SURGICAL HISTORY: 1. Heart catheterization. 2. Hysterectomy. 3. Tubal ligation. 4. Left breast lumpectomy. 5. Left laminectomy. 6. Partial hysterectomy. 7. Diagnostic laparoscopy, lysis of adhesions. MEDICATIONS: 1. Zanaflex. 2. Vitamin B complex. 3. Prilosec. 4. Multivitamin. 5. ( ). 6. Claritin. 7. Lisinopril. 8. Synthroid. 9. Lorazepam. 10. [place]-3. 11. Motrin. 12. Garlic. 13. Aromasin. 14. Vitamin D. 15. Lipitor. 16. Tenormin. 17. Baby aspirin. ALLERGIES: 1. PENICILLIN. 2. HOUSE DUST. 3. GRASS POLLEN. SOCIAL HISTORY: History of alcohol abuse including former tobacco use. FAMILY HISTORY: Pertinent for morbid obesity including hypertension, gastroesophageal reflux disease, heart disease. REVIEW OF SYSTEMS: CONSTITUTIONAL: At her height of 5 feet 1 1/2 inches, her ideal body weight is 131 pounds. For her weight today she comes in weighing 223 pounds. She has lost 2 pounds in 3 weeks. Body mass index is now 41.5. She is 92 pounds overweight. GASTROINTESTINAL: Has severe gastroesophageal reflux disease. Also reports multiple abdominal surgeries and worsening epigastric abdominal pain. RESPIRATORY: History of obstructive sleep apnea. HEENT: No troubles with vision or hearing. Has intermittent dysphagia to solid foods. ENDOCRINE: History of hypothyroidism. No reports of blood sugar glucose intolerance. CARDIOVASCULAR: Previous myocardial infarction. Hypertension. MUSCULOSKELETAL: Has diffuse osteoarthritis. Also has fibromyalgia. NEURO: No reports of stroke or seizure disorders. PSYCH: History of depression including anxiety. HEMATOLOGIC: No reports of easy bruising or bleeding. PHYSICAL EXAM: VITAL SIGNS: 5 feet 1.5 inches, 223 pounds. Body mass index 41.5. ABDOMEN: Abdomen is soft, nontender, nondistended. GENERAL: Well-developed female in no acute distress. HEENT: No scleral icterus. Extraocular movements grossly intact. NECK: Supple without lymphadenopathy. CHEST: Nonlabored respirations. CARDIOVASCULAR: Regular rate and regular rhythm. MUSCULOSKELETAL: No clubbing, cyanosis, or edema. NEURO: No focal or lateralizing signs. PSYCH: Affect flat. Alert and oriented to person, place, and time. Labs: Previous hemoglobin normal at 14.1. ALT elevated at 58. Triglycerides elevated at 219, cholesterol elevated at 203. LDL elevated at 119. Hemoglobin A1C was 5.9%. ASSESSMENT: 1. Morbid obesity due to excess calories. 2. Body mass index 41.5. 3. Anxiety. 4. Depression. 5. Severe gastroesophageal reflux disease. 6. Diaphragmatic hiatal hernia. 7. Obstructive sleep apnea. 8. Hypertensive heart disease. 9. Hypothyroidism. 10. Diffuse osteoarthritis. 11. Bilateral lower abdominal pain. 12. Fibromyalgia. 13. Erosive esophagitis. 14. History of multiple intra-abdominal surgeries. 15. Abnormal EKG. 16. History of peritoneal adhesions. PLAN: 1. Recommend completion of medical risk assessment. 2. Two-week high-protein low caloric diet to address hepatomegaly. 3. She has a symptomatic diaphragmatic hernia which may be repaired time of her operation. 4. An 8 page second-generation bariatric consent form was reviewed in detail. She is elected for a Raad-en-Y gastric bypass. 5. Inpatient hospitalization over 2 days. 6. DVT prophylaxis. 7. Antibiotic prophylaxis. 8. Possibility of robotic approach was also reviewed. 9. She has completed cardiac risk assessment and clearance. Past Medical History Past Medical History: Asthma, Cancer, Fibromyalgia, GERD/Reflux, Hyperlipidemia , Hypertension, Liver Disease, Myocardial Infarction (MD), Osteoarthritis (OA), Skin Disorder, Sleep Apnea/CPAP/BIPAP, Thyroid Disorder Additional Past Medical History / Comment(s): BREAST CANCER, IRREGULAR HEARTBEAT ,MACULAR DEGENERATION, hx KIDNEY STONE, heart [place], palpitations, no cpap used , hiatal hernia, IBS, fatty liver, eczema, urinary leakage, serena carpal tunnel, recent fx rt foot-surgery 7 weeks ago(boot off now) Last Myocardial Infarction Date:: 2008 History of Any Multi-Drug Resistant Organisms: None Reported Past Surgical History: Heart Catheterization, Hysterectomy, Orthopedic Surgery, Tubal Ligation Additional Past Surgical History / Comment(s): LT BREAST LUMPECTOMY AND LYMPH NODE REMOVED, THYROID NODULE, LYSIS OF ADHESIONS, surgery for fx rt foot 7 weeks ago Past Anesthesia/Blood Transfusion Reactions: Motion Sickness Smoking Status: Former smoker - Past Family History Father Family Medical History: Cancer, Deep Vein Thrombosis (DVT) Additional Family Medical History / Comment(s): . Mother Family Medical History: Cancer Additional Family Medical History / Comment(s): SKIN CANCER Medications and Allergies Home Medications Medication Instructions Recorded Confirmed Type Atenolol [Tenormin] 25 mg PO DAILY 01/04/14 11/15/16 History Lisinopril [Lisinopril] 20 mg PO HS 01/04/14 11/15/16 History tiZANidine [Zanaflex] 4 mg PO BID PRN 01/04/14 11/15/16 History Aspirin [Adult Low Dose Aspirin EC] 81 mg PO DAILY 03/25/16 11/15/16 History Cholecalciferol [Vitamin D3] 1,000 unit PO DAILY 03/25/16 11/15/16 History Krill/Om-3/Dha/Epa/Phospho/Ast 1 each PO DAILY 03/25/16 11/15/16 History [[place]-3 Krill Oil 300 mg Sfgl] Levothyroxine Sodium [Synthroid] 50 mcg PO DAILY 03/25/16 11/15/16 History Loratadine [Claritin] 10 mg PO DAILY 03/25/16 11/15/16 History Milk Thistle 175 mg PO BID 03/25/16 11/15/16 History Multivitamins, Thera [Multivitamin] 1 tab PO DAILY 03/25/16 11/15/16 History Vitamin B Complex 1 each PO DAILY 03/25/16 11/15/16 History DULoxetine HCL [Cymbalta] 60 mg PO BID 11/15/16 11/15/16 History Exemestane [Aromasin] 25 mg PO DAILY 11/15/16 11/15/16 History LORazepam [Ativan] 1 mg PO BID 11/15/16 11/15/16 History Montelukast [Singulair] 10 mg PO HS 11/15/16 11/15/16 History Pravastatin Sodium [Pravachol] 40 mg PO HS 11/15/16 11/15/16 History Ranitidine HCl [Zantac] 150 mg PO BID 11/15/16 11/15/16 History Allergies Allergy/AdvReac Type Severity Reaction Status Date / Time Penicillins Allergy Dyspnea Verified 11/15/16 10:48 grass pollen-perennial rye, AdvReac Itching Verified 11/15/16 10:48 standar house dust AdvReac Itching Verified 11/15/16 10:48
[2016-11-21] MEDS: LACTATED RINGERS 1,000 ML IV SCH ×4 (07:12→12:56)
[2016-11-21] MEDS: ONDANSETRON 4 MG/2 ML VIAL IVP ONE ×2 (07:13→12:56)
[2016-11-21] MEDS: ENOXAPARIN 40 MG/0.4 ML SYRINGE SQ STA ×2 (07:13→12:56)
[2016-11-21] MEDS: PANTOPRAZOLE 40 MG/10 ML VIAL IV STA ×2 (07:14→12:56)
[2016-11-21] MEDS ORDERED: PROPOFOL 10 MG/ML 20 ML VIAL IV ONE (07:30)
[2016-11-21] MEDS ORDERED: PHENYLEPHRINE-0.9% NACL SYG 1 MG/10 ML SYRINGE ONE (07:30)
[2016-11-21] MEDS ORDERED: ePHEDrine 50 MG/ML 1 ML AMP ONE (07:30)
[2016-11-21] MEDS ORDERED: GLYCOPYRROLATE 0.2 MG/ML 2 ML VIAL ONE (07:30)
[2016-11-21] MEDS ORDERED: LACTATED RINGERS 1,000 ML IV ONE ×2 (07:30→09:27)
[2016-11-21] MEDS ORDERED: ePHEDrine SULFATE/0.9% NACL/PF 50 MG/5 ML SYRINGE IV ONE (07:30)
[2016-11-21] MEDS ORDERED: NEOSTIGMINE 1 MG/ML 10 ML VIAL ONE (07:30)
[2016-11-21] MEDS ORDERED: HYDROmorphone (PF) 1 MG/ML ONE (07:30)
[2016-11-21] MEDS ORDERED: MIDAZOLAM 2 MG/2 ML VIAL ONE (07:30)
[2016-11-21] MEDS ORDERED: VECURONIUM 10 MG VIAL IV ONE (07:30)
[2016-11-21] MEDS ORDERED: LIDOCAINE 1% INJ 10MG/ML (20 ML MDV) ONE (07:30)
[2016-11-21] MEDS ORDERED: fentaNYL (PF) 50 MCG/ML 2 ML AMP ONE (07:30)
[2016-11-21] MEDS ORDERED: SUCCINYLCHOLINE CHLORIDE 100 MG/5 ML SYR IV ONE (07:30)
[2016-11-21] MEDS ORDERED: BUPIVACAINE (PF) 0.5% 30 ML VIAL SQ ONE (07:58)
[2016-11-21] MEDS ORDERED: ACETAMINOPHEN IV (For NPO) 1,000 MG in EMPTY BAG 1 BAG IVPB ONE (10:39)
[2016-11-21] MEDS ORDERED: NALOXONE 0.4 MG/ML 1 ML VIAL IV PRN (10:39)
--- NOTE | 2016-11-21 10:45 | P.PCN ---
Date of Procedure: 11/21/16 Preoperative Diagnosis: Morbid obesity Postoperative Diagnosis: Same, paraesophageal hiatal hernia, extensive adhesions lower abdomen Procedure(s) Performed: Laparoscopic lysis of adhesions over 30 minutes, laparoscopic paraesophageal hiatal hernia repair incarcerated 3 cm with gore Biopatch a, laparoscopic gastric bypass 75 cm antecolic antegastric, intraoperative egj Implants: Anesthesia: GETA, local Surgeon: Analisa Savage Estimated Blood Loss (ml): 30 Pathology: none sent Condition: stable Disposition: floor Indications for Procedure: Operative Findings: Severe adhesions lower abdomen over 30 minutes incarcerated omentum greater omentum to the abdominal wall, 75 cm bypass performed secondary to severity of tension, full-thickness donuts, negative leak test, 3 stapler 60 mm retana gastric pouch including a 45 mm purple preload Description of Procedure:
[2016-11-21] MEDS: 0.9% NACL WITH KCL 20 MEQ/L 1,000 ML IV SCH ×2 (11:42→11:43)
[2016-11-21] MEDS: SIMETHICONE 40 MG/0.6 ML DROPS 2,000 MG/30 ML BOTTLE PO SCH ×3 (12:09→23:07)
[2016-11-21] MEDS: HYDROmorphone 1 MG/ML 1 ML SYRINGE IVP PRN ×4 (12:24→22:40)
[2016-11-21] MEDS: HYOSCYAMINE ORAL DROPS 1.875 MG/15 ML BOTTLE PO SCH ×3 (12:58→23:08)
[2016-11-21] MEDS: CLINDAMYCIN 600 MG in DEXTROSE 5% IN WATER 50 ML IVPB SCH ×4 (14:46→23:07)
[2016-11-21] MEDS: ALBUTEROL NEBULIZED 2.5 MG/3 ML INHALATION SCH ×3 (15:25→20:26)
--- NOTE | 2016-11-21 18:10 | P.PN ---
Progress Note - Text Patient seen and evaluated this evening. She reports feeling surprisingly well. She is tolerating liquids. She has passed flatus.
--- NOTE | 2016-11-21 18:38 | P.OP ---
Date of Procedure: 11/21/16 Preoperative Diagnosis: Postoperative Diagnosis: Procedure(s) Performed: Implants: Indications for Procedure: Operative Findings: Description of Procedure: DESCRIPTION OF PROCEDURE(S): SURGEON: TOSHA SANCHEZ MD FINANCIAL ADVISOR: BREE YORK PRE-OPERATIVE DIAGNOSES: 1. Morbid obesity due to excess calories. 2. Body mass index 41.5. 3. Anxiety. 4. Depression. 5. Severe gastroesophageal reflux disease. 6. Diaphragmatic hiatal hernia. 7. Obstructive sleep apnea. 8. Hypertensive heart disease. 9. Hypothyroidism. 10. Diffuse osteoarthritis. 11. Previous history of breast cancer. 12. Fibromyalgia. 13. Erosive esophagitis. 14. History of multiple intra-abdominal surgeries. 15. Cardiomyopathy. 16. History of peritoneal adhesions. 17. Kidney stones. 18. Stomach ulcers. 19. Fatty liver disease. 20. Diverticulitis. 21. Previous history of myocardial infarction. POSTOPERATIVE DIAGNOSES: 1. Morbid obesity due to excess calories. 2. Body mass index 41.5. 3. Anxiety. 4. Depression. 5. Severe gastroesophageal reflux disease. 6. Diaphragmatic hiatal hernia. 7. Obstructive sleep apnea. 8. Hypertensive heart disease. 9. Hypothyroidism. 10. Diffuse osteoarthritis. 11. Previous history of breast cancer. 12. Fibromyalgia. 13. Erosive esophagitis. 14. History of multiple intra-abdominal surgeries. 15. Cardiomyopathy. 16. History of peritoneal adhesions. 17. Kidney stones. 18. Stomach ulcers. 19. Fatty liver disease. 20. Diverticulitis. 21. Previous history of myocardial infarction. OPERATION: 1. Laparoscopic Raad-en-Y gastric bypass, 75cm antecolic, antegastric Raad limb , with 25 mm EEA. 2. Laparoscopic extensive lysis of adhesions over 30 minutes. 3. Laparoscopic repair of incarcerated midline paraesophageal diaphragmatic hiatal hernia, 3 cm, with obstruction with [place] Biopatch A 8 x 8 cm. 4. Intraoperative esophagogastroduodenoscopy. ANESTHESIA: 60 mL 0.5% sensorcaine. ESTIMATED BLOOD LOSS: 30 mL SPECIMENS REMOVED: NONE. COMPLICATIONS: None. INDICATIONS: Miladys Broussard is a 65 year old female with morbid obesity and severe gastroesophageal reflux disease. She has developed hypertension, osteoarthritis of the bilateral hips and knees as well as obstructive sleep apnea. Given the severity of her reflux disease, she is evaluating for the Raad-En-Y gastric bypass. At her height of 5 feet 1 1/2 inches, her ideal body weight is 131 pounds. For her previous weight she came in weighing 211 pounds. She was 223 pounds and has lost 12 pounds from her 2 week high-protein low caloric diet. Her body mass index was 41.5. All surgical options for morbid obesity had been described using the [place] bariatric surgery collaborative comorbidity resolution including complication risk score. A second-generation bariatric consent form was described in detail including the possibility of protein malnutrition, leaks, gastrojejunal stricture, venous thrombosis for which she demonstrated understanding. Benefits and risks of the procedure were described at length. Informed consent was obtained. DESCRIPTION: The patient was brought into the operating room theater. She was placed on a split leg table. Preoperatively she had received Lovenox subcutaneously for DVT prophylaxis. Additionally she had undergone Peridex oral solution as an oral decontaminant. After general induction, the abdomen was prepped and draped in standard sterile fashion. A Hope catheter was placed. Ioban draping was placed along the abdomen. A 0 10 mm laparoscopic trocar entry was performed along the epigastrium approximately 15 cm distal to the xiphoid process. The abdomen was insufflated to 15 mmHg which she tolerated well. Her xiphoid to umbilicus was 18.5 cm for her height of 5 foot 1.5 inches. Diagnostic laparoscopy demonstrated no injury to bowel, viscera, or mesentery. The liver surface was unremarkable. No injury had occurred to the small bowel or viscera. The liver edge was crisp consistent with her 2 week low calorie high protein diet. Moderate greater omental adhesions to the lower abdominal wall were found along the lower midline. At the left upper quadrant 2- 12 mm trocars were placed 1 along the left midclavicular line and another along the anterior axillary line. In a mirror-blankenship fashion, 2 - 12 mm trocars were also placed along the right upper abdomen in a mirror-blankenship fashion. Another 12 mm port was placed on the right lower quadrant under direct pulsation. The patient was repositioned to supine position with the bed levelled. Using a Sonicision, the dense peritoneal adhesions to the anterior abdominal wall was carefully taken down for over 30 minutes as adhesions were identified involving greater omentum to the lower abdominal wall. Care was taken to remove the adhesions without any enterotomies or injury to the small intestine. Extensive lysis of adhesions occurred for over 30 minutes. A bariatric length 45-degree 10 mm bariatric laparoscope was used throughout the rest of the case. The transverse mesocolon, including the omentum, was reflected over the stomach. The ligament of Treitz was identified and measured 60 cm antegrade. The jejunum was divided at the 60 cm point after using metered graspers for measurement. The biliopancreatic limb was held in place by the assistant site manager. The Raad limb was then measured 75 cm distally to avoid tension along the proposed gastrojejunal anastomosis. The Raad limb was marked using a Sherman drain and 2-0 silk on an Endo Stitch along its proximal staple edge. At 75 cm along the anti-mesenteric border of the Raad limb, a jejunojejunostomy was proposed whereby enterotomies were created along the biliopancreatic limb including the Raad limb using a suction Bovie cautery. The enterotomies were widened using a [place]. A bidirectional fire was performed whereby from the right side a 45 mm galicia load was fired. From the left side a separate 45 mm firing had occurred, creating a 90 mm jejunojejunostomy. The defect was then closed using a 60 mm galicia load. The jejunojejunostomy was made hemostatic. Attention was now brought to the creation of the gastrojejunostomy. Placement of a medium size Billy liver retractor was used to elevate the left lobe of the liver for greater visualization of the upper abdomen, particularly the superior pole of the stomach. The patient was then placed in reverse Trendelenburg. The Billy liver retractor was held in place using an iron internal communications writer. Along the hiatus, a midline paraesophageal diaphragmatic hiatal hernia was identified incarcerated in the chest. Attention was now brought to mobilization of the phrenoesophageal ligament. Starting from the left natali the phrenoesophageal ligament anteriorly was dissected free. Care was taken to avoid any injury to the bilateral vagi nerves during this portion of dissection. The distal esophagus was mobilized from an anterior to posterior approach such that approximately 3 cm intra-abdominal length of the esophagus was obtained. Once the left and right natali was identified, and the distal esophagus was free from its attachments, the final length of the hiatal hernia was consistent with 3 cm. Along the lesser curvature of the stomach between the second and third veins, dissection was made along the retrogastric space to allow first firing of the Covidien Tri-Staple purple load. Once adequately mobilized, an initial firing using a 60 mm purple load was performed perpendicular to the lesser curvature of the stomach. To completely divide the pouch from the remnant stomach, 2 - 60 mm purple loads were fired towards the angle of His. A total of 3 - 60 mm and 1 - 45 mm purple staplers were used to create the gastric pouch. Hemostasis was checked with electro-Bovie cautery along the left lateral edge of the gastric remnant stomach. The patient was then prepared for placement of a Orvil. The patient was Mallampati 2. A 25-mm Orvil was selected for placement by the nurse sheep farm worker. The Orvil tubing was placed anterior to the staple line of the gastric pouch and brought out through the left inferior lateral port along the assistant site manager port. The Orvil was then carefully and successfully navigated with the help of the nurse sheep farm worker into the gastric pouch. The sutures were identified and divided. The tubing was from the 25 mm anvil. Using aseptic technique all instruments including port sites were exchanged. Attention was now brought back to the diaphragmatic hiatus. The hiatus hernia was closed using a simple and [id number] suture 2-0 Surgidac on a Cov115 network disksen endo stitch. The final closure was consistent with approximately a 56 [place] bougie as a fenestrated grasper easily passed between the abdominal cavity into the thoracic cavity. Next, to reinforce the repair, a [place] Biopatch A, 8 x 8 cm mesh was cut to size in a keyhole fashion. The [place] Biopatch A was placed along the retroesophageal plane and tacked using 2-0 Surgidac onto the right natali of the diaphragm. The mesh had laid well in opposition to the left and right natali. No encroachment onto the esophagus had occurred with the mesh. As the Orvil had been placed, the blind jejunal limb was brought proximally into the upper abdomen. The transverse mesocolon was cleaved. The patient was repositioned in reverse Trendelenburg. The Raad limb was brought along the superior portion of the abdomen. No tension was identified as the limb was brought along the upper abdomen. The blind jejunal limb was opened using a cordless Harmonic scalpel. The 25-mm EEA stapler was brought through the left anterior lateral port site from the left side. Please note that the trocars from the Orvil tubing, including the port, were removed to minimize contamination from the oral duke. The EEA stapler was brought through the open jejunal limb and its needle was deployed at the antimesenteric border where the anvil were mated for approximately 1 minute upon firing. The stapler was removed after irrigating the shaft of the instrument with warm normal saline. Donuts were found to be intact on both the stomach and jejunal and thick. The open jejunal limb defect was closed using a 60 mm galicia load after releasing any tension from the blind jejunal limb. Hemostasis was checked with Sonicision along the blind jejunal limb mesentery. Care was taken to avoid any long blind limb to avoid candycane syndrome. No reinforcement sutures were needed along the gastrojejunal anastomosis. Closure of the mesenteric defects was performed, initially of the Estrada defect using 2-0 silk on an Endo stitch and a Lapra-Ty and the jejunojejunostomy mesenteric defect. I then went to the head of the bed to perform the esophagogastrojejunoscopy and a leak test. An Olympus gastroscope was passed along the posterior oropharynx which was unremarkable for any injury to the vocal cords. The scope was passed down to the proximal portion of the pouch, whereby no active bleeding was encountered. Excellent visualization of the gastrojejunostomy anastomosis, including the Raad limb was encountered with endoscopic image obtained. The anastomosis was found to be patent. The gastrointestinal tract was desufflated. No evidence of intraoperative leak was encountered as the gastric pouch and anastomosis were submerged under normal saline solution. I then went back to the bedside of the patient, whereby with coordinated effort of the assistant site manager, irrigation was aspirated from the upper abdominal cavity. Tisseel was placed circumferentially over the anastomosis of the gastrojejunostomy. The specimens removed from the abdomen using an Endo Catch bag. All instruments and pneumoperitoneum were evacuated from the abdominal cavity. The port correlating with the EEA stapler device was copiously irrigated with 3 L of warm normal saline solution and hydrogen peroxide. The fascial defect was closed using a Solomon Patel and 0 Vicryl with 2 separate sutures. The rest of incisions were reapproximated using 3-0 Vicryl for deep subcutaneous tissue and dermis followed by 4-0 Monocryl in a running subcuticular fashion. For local anesthetic, 50 mL of 0.50% Sensorcaine with epinephrine and was infiltrated along the skin for postop analgesia. Dermabond was applied to the skin. OptiFoam dressing was placed along the EEA stapler site. At the end of the procedure, needle, sponge and instrument count had been verified correct by the surgical scrub tech. She had tolerated the procedure well and was taken to the postanesthesia unit in stable condition. Total skin to skin time was 137 minutes. Intraoperative films were reviewed with the patient's family who were pleased with the level of care. FINDINGS: 1. Negative intraoperative esophagogastrojejunoscopy leak test. 2. No fatty liver disease. 3. All defects including jejunojejunostomy Estrada defects were closed. 4. Total of 4 staple loads including 3 - 60 mm and 1 - 45 mm Covidien tri- stapler purple load used to create the gastric pouch. 5. Gastrojejunostomy created using 25 mm Orvil, posterior to the staple line. 6. Jejunojejunostomy created with 90 mm ryan-lumen 7. Xiphoid to umbilical height of 18.5 cm. 8. Severe intra-abdominal adhesions requiring over 30 minutes for lysis of adhesions along the mid-lower abdomen. 9. Incarcerated midline paraesophageal diaphragmatic hiatal hernia 3 cm repaired with mesh.
[2016-11-21] MEDS: DULoxetine HCL 60 MG CAPSULE.DR PO SCH (22:47)
[2016-11-21] MEDS: MONTELUKAST 10 MG TAB PO SCH (22:47)
[2016-11-21] MEDS: LISINOPRIL 20 MG TAB PO SCH (22:47)
[2016-11-22] MEDS: HYDROmorphone 1 MG/ML 1 ML SYRINGE IVP PRN ×2 (02:10→16:03)
[2016-11-22] MEDS: 0.9% NACL WITH KCL 20 MEQ/L 1,000 ML IV SCH ×2 (02:10→09:25)
[2016-11-22] MEDS: HYDROcodone/APAP 15 ML SOLUTION PO PRN ×3 (07:41→21:32)
[2016-11-22] MEDS: LEVOTHYROXINE 50 MCG TAB PO SCH (07:41)
[2016-11-22] MEDS: HYOSCYAMINE ORAL DROPS 1.875 MG/15 ML BOTTLE PO SCH ×3 (07:44→17:33)
[2016-11-22] MEDS: SIMETHICONE 40 MG/0.6 ML DROPS 2,000 MG/30 ML BOTTLE PO SCH ×3 (07:45→17:33)
[2016-11-22 08:05] LABS: Anion Gap 12 mmol/L; Blood Urea Nitrogen 14 mg/dL (7-17); Calcium 8.5 mg/dL (8.4-10.2); Carbon Dioxide 25 mmol/L (22-30); Chloride 103 mmol/L (98-107); Magnesium 1.9 mg/dL (1.6-2.3); Non-African American GFR(MDRD) >60 (>60 ml/min/1.73 sqM); Phosphorous 3.3 mg/dL (2.5-4.5); Potassium 4.8 mmol/L (3.5-5.1); Sodium 140 mmol/L (137-145)
[2016-11-22 08:06] LABS: Basophils % (A) 0 %; CH 31.4; CHCM 32.7; Eosinophils % (A) 0 %; HCT 33.4 % (34.0-46.0); HDW 2.47; Luc # (Auto) 0.29; Luc % (Auto) 3; Lymphocytes # (A) 0.9 k/uL (1.0-4.8); Lymphocytes % (A) 9 %; MCH 31.1 pg (25.0-35.0); MCHC 32.2 g/dL (31.0-37.0); MCV 96.6 fL (80.0-100.0); Mean Platelet Volume 9.5; Monocytes # (A) 0.6 k/uL (0-1.0); Monocytes % (A) 6 %; Neutrophils # (A) 8.1 k/uL (1.3-7.7); Neutrophils % (A) 82 %; RBC 3.46 m/uL (3.80-5.40); RDW 14.4 % (11.5-15.5); WBC 9.9 k/uL (3.8-10.6); WBC (Perox) 10.15
[2016-11-22 08:13] LABS: HGB 10.8 gm/dL (11.4-16.0)
[2016-11-22] MEDS: ALBUTEROL NEBULIZED 2.5 MG/3 ML INHALATION SCH ×4 (09:03→19:49)
[2016-11-22] MEDS: ATENOLOL 25 MG TAB PO SCH (09:33)
[2016-11-22] MEDS: ENOXAPARIN 40 MG/0.4 ML SYRINGE SQ SCH (09:34)
[2016-11-22] MEDS: PANTOPRAZOLE 40 MG/10 ML VIAL IV SCH (09:35)
[2016-11-22] MEDS: LORATADINE 10 MG TAB PO SCH (09:35)
[2016-11-22] MEDS: DULoxetine HCL 60 MG CAPSULE.DR PO SCH ×2 (09:36→21:38)
[2016-11-22 14:33] VITALS: BMI 38.7
[2016-11-22] MEDS ORDERED: BISACODYL 10 MG SUPP RECTAL STA (20:02)
--- NOTE | 2016-11-22 20:10 | P.PN ---
Progress Note - Text Patient seen and evaluated. She complains of gas pains. Recommend suppository. Hold BP medications.
[2016-11-22 20:12] LABS: % Iron Saturation 8.1 % (20-50)
[2016-11-22] MEDS: 1: MVI, ADULT NO.4 WITH VIT K 10 ML, THIAMINE 100 MG, FOLIC ACID 1 MG, POTASSIUM CHLORID IV SCH ×6 (21:37)
[2016-11-22] MEDS: MONTELUKAST 10 MG TAB PO SCH (21:38)
[2016-11-23] MEDS: HYOSCYAMINE ORAL DROPS 1.875 MG/15 ML BOTTLE PO SCH ×4 (00:04→18:01)
[2016-11-23] MEDS: SIMETHICONE 40 MG/0.6 ML DROPS 2,000 MG/30 ML BOTTLE PO SCH ×4 (00:05→18:01)
[2016-11-23] MEDS: LISINOPRIL 20 MG TAB PO SCH ×2 (00:31→20:00)
[2016-11-23] MEDS: 1: MVI, ADULT NO.4 WITH VIT K 10 ML, THIAMINE 100 MG, FOLIC ACID 1 MG, POTASSIUM CHLORID IV SCH ×24 (05:21→22:44)
[2016-11-23] MEDS ORDERED: SODIUM CHLORIDE 0.9% 1,000 ML BAG ONE (05:21)
[2016-11-23] MEDS: LACTATED RINGERS 1,000 ML IV SCH (05:27)
[2016-11-23] MEDS: HYDROcodone/APAP 15 ML SOLUTION PO PRN ×3 (05:35→18:06)
[2016-11-23 07:35] LABS: Basophils % (A) 0 %; CH 31.4; CHCM 32.5; Eosinophils # (A) 0.2 k/uL (0-0.7); Eosinophils % (A) 2 %; HCT 28.8 % (34.0-46.0); HDW 2.52; HGB 9.4 gm/dL (11.4-16.0); Luc # (Auto) 0.19; Luc % (Auto) 3; Lymphocytes # (A) 0.9 k/uL (1.0-4.8); Lymphocytes % (A) 14 %; MCH 31.6 pg (25.0-35.0); MCHC 32.5 g/dL (31.0-37.0); MCV 97.3 fL (80.0-100.0); Mean Platelet Volume 9.7; Monocytes # (A) 0.4 k/uL (0-1.0); Monocytes % (A) 6 %; Neutrophils # (A) 4.9 k/uL (1.3-7.7); Neutrophils % (A) 74 %; RBC 2.96 m/uL (3.80-5.40); RDW 14.3 % (11.5-15.5); WBC 6.6 k/uL (3.8-10.6); WBC (Perox) 6.99
[2016-11-23] MEDS: ALBUTEROL NEBULIZED 2.5 MG/3 ML INHALATION SCH ×4 (08:24→19:27)
[2016-11-23 08:28] LABS: Anion Gap 7 mmol/L; Blood Urea Nitrogen 12 mg/dL (7-17); Calcium 8.7 mg/dL (8.4-10.2); Carbon Dioxide 25 mmol/L (22-30); Chloride 109 mmol/L (98-107); Glucose 94 mg/dL (74-99); Magnesium 2.2 mg/dL (1.6-2.3); Non-African American GFR(MDRD) >60 (>60 ml/min/1.73 sqM); Phosphorous 2.2 mg/dL (2.5-4.5); Potassium 4.6 mmol/L (3.5-5.1); Sodium 141 mmol/L (137-145)
[2016-11-23] MEDS ORDERED: SODIUM CHLORIDE 0.9% 1,000 ML IV ONE (09:11)
[2016-11-23] MEDS: DULoxetine HCL 60 MG CAPSULE.DR PO SCH ×2 (09:18→20:00)
[2016-11-23] MEDS: PANTOPRAZOLE 40 MG/10 ML VIAL IV SCH (09:18)
[2016-11-23] MEDS: ATENOLOL 25 MG TAB PO SCH (09:18)
[2016-11-23] MEDS: LEVOTHYROXINE 50 MCG TAB PO SCH (09:18)
[2016-11-23] MEDS: LORATADINE 10 MG TAB PO SCH (09:18)
[2016-11-23] MEDS ORDERED: SODIUM FERRIC GLUCONAT-SUCROSE 125 MG in SODIUM CHLORIDE 0.9% 100 ML IVPB SCH (10:00)
[2016-11-23] MEDS ORDERED: BISACODYL 5 MG TABLET.DR PO STA (10:30)
--- NOTE | 2016-11-23 10:33 | P.PN ---
Progress Note - Text Patient seen and evaluated. She reports decreased abdominal distention today. Abdominal pain has improved. She had low blood pressure overnight however this resolved this morning. She reports labile blood pressure even at home. Plan includes Dulcolax suppository. IV fluid bolus. Iron is low with iron infusion recommended. Phosphorus also low with infusion recommended. Anticipated discharge pending increased passage of flatus and resolution of expected postoperative ileus.
[2016-11-23] MEDS: SODIUM PHOSPHATE 10 MMOL in SODIUM CHLORIDE 0.9% 250 ML IVPB SCH ×2 (12:03→14:24)
[2016-11-23] MEDS ORDERED: BISACODYL 10 MG SUPP RECTAL STA (14:20)
[2016-11-23] MEDS: ONDANSETRON 4 MG/2 ML VIAL IVP PRN (17:58)
[2016-11-23] MEDS: ENOXAPARIN 40 MG/0.4 ML SYRINGE SQ SCH (19:07)
[2016-11-23] MEDS: MONTELUKAST 10 MG TAB PO SCH (20:00)
[2016-11-24] MEDS: HYDROcodone/APAP 15 ML SOLUTION PO PRN ×2 (00:14→07:31)
[2016-11-24] MEDS: SIMETHICONE 40 MG/0.6 ML DROPS 2,000 MG/30 ML BOTTLE PO SCH ×2 (00:14→06:25)
[2016-11-24] MEDS: HYOSCYAMINE ORAL DROPS 1.875 MG/15 ML BOTTLE PO SCH ×2 (00:15→06:25)
[2016-11-24 07:28] VITALS: BP 135/73; PULSE 88; RESP 12; TEMP 98.4
[2016-11-24] MEDS: ONDANSETRON 4 MG/2 ML VIAL IVP PRN (07:30)
[2016-11-24] MEDS: LEVOTHYROXINE 50 MCG TAB PO SCH (07:35)
[2016-11-24] MEDS: DULoxetine HCL 60 MG CAPSULE.DR PO SCH (07:35)
[2016-11-24] MEDS: LORATADINE 10 MG TAB PO SCH (07:35)
[2016-11-24] MEDS: PANTOPRAZOLE 40 MG/10 ML VIAL IV SCH (07:36)
[2016-11-24] MEDS: LACTATED RINGERS 1,000 ML IV SCH (07:39)
[2016-11-24] MEDS: ALBUTEROL NEBULIZED 2.5 MG/3 ML INHALATION SCH (07:39)
[2016-11-24] MEDS: ATENOLOL 25 MG TAB PO SCH (07:40)
[2016-11-24 11:32] LABS: Basophils % (A) 0 %; CH 30.5; CHCM 32.2; Eosinophils # (A) 0.2 k/uL (0-0.7); Eosinophils % (A) 2 %; HDW 2.76; HGB 9.2 gm/dL (11.4-16.0); Luc % (Auto) 2; Lymphocytes # (A) 0.4 k/uL (1.0-4.8); Lymphocytes % (A) 6 %; MCH 31.5 pg (25.0-35.0); MCV 95.4 fL (80.0-100.0); Mean Platelet Volume 8.6; Monocytes # (A) 0.3 k/uL (0-1.0); Monocytes % (A) 4 %; Neutrophils # (A) 5.8 k/uL (1.3-7.7); Neutrophils % (A) 86 %; RBC 2.93 m/uL (3.80-5.40); RDW 14.1 % (11.5-15.5); WBC 6.7 k/uL (3.8-10.6); WBC (Perox) 6.81
--- NOTE | 2016-11-24 11:40 | P.PN ---
Progress Note - Text Patient had witnessed moderate passage of flatus at bedside. She is ambulating. Troponins were unremarkable. No reports of increased dizziness. Plan for discharge home with follow-up at the bariatric center in 24 to 48 hours.
[2016-11-24 11:44] LABS: Anion Gap 10 mmol/L; Blood Urea Nitrogen 9 mg/dL (7-17); Calcium 8.6 mg/dL (8.4-10.2); Carbon Dioxide 21 mmol/L (22-30); Chloride 107 mmol/L (98-107); Glucose 91 mg/dL (74-99); Magnesium 1.9 mg/dL (1.6-2.3); Non-African American GFR(MDRD) >60 (>60 ml/min/1.73 sqM); Phosphorous 2.5 mg/dL (2.5-4.5); Potassium 4.3 mmol/L (3.5-5.1); Sodium 138 mmol/L (137-145)
--- NOTE | 2016-11-24 18:52 | P.PN ---
Subjective Principal diagnosis: Morbid obesity The patient is a 65-year-old female who is status post lysis of adhesions including repair of a paraesophageal hiatal hernia and gastric bypass. Prior to her surgery, she had hypotension and asymptomatic. She reports having a labile blood pressure even at home. She lost moderately prior to her surgery. She reports abdominal distention including gas pains. Objective - Vital Signs Vital signs: Vital Signs Temp 98.2 F 11/22/16 15:00 Pulse 77 11/22/16 15:00 Resp 16 11/22/16 15:00 BP 116/56 11/22/16 16:11 Pulse Ox 91 L 11/22/16 17:20 Intake & Output 11/22/16 11/22/16 11/23/16 06:59 18:59 06:59 Intake Total 2210 650 Output Total 600 Balance 1610 650 Weight 96 kg Intake: Intake, IV Titration 1200 Amount 0.9% NaCl with KCl 20 Meq 1200 /l 1,000 ml @ 150 mls/hr IV .[id number] [facility] Rx#: [id number] Oral 1010 650 Output: Urine 600 Other: Voiding Method Toilet # Voids 4 2 - Exam GENERAL: Well developed and in no acute distress. Pleasant. HEENT: No sclera icterus. Extraocular movements grossly intact. Moist buccal mucosa. Head is atraumatic, normocephalic. Hears conversational speech. No nasal drainage. NECK: Supple without lymphadenopathy. CHEST: Non-labored respirations and equal bilateral excursions. CARDIOVASCULAR: Regular rate and rhythm. Palpable 2+ radial pulses. ABDOMEN: Soft, distended. Milly-incisional tenderness. All laparoscopic sites clean dry and intact. MUSCULOSKELETAL: No clubbing, cyanosis or edema. NEUROLOGIC: No focal or lateralizing signs. PSYCH: Appropriate affect. Alert and oriented to person, place and time. SKIN: Good skin turgor. Will perfused. - Labs CBC & Chem 7: 11/24/16 11:17 11/24/16 11:17 Labs: Abnormal Lab Results - Last 24 Hours (Table) 11/22/16 Range/Units 07:30 RBC 3.46 L (3.80-5.40) m/uL Hgb 10.8 L D (11.4-16.0) gm/dL Hct 33.4 L (34.0-46.0) % Neutrophils # 8.1 H (1.3-7.7) k/uL Lymphocytes # 0.9 L (1.0-4.8) k/uL Assessment and Plan (1) Morbid obesity due to excess calories Status: Acute (2) BMI 38.0-38.9,adult Status: Acute (3) Hypotension Status: Acute (4) Hypertensive heart disease Status: Acute (5) Depression Status: Acute (6) Sleep apnea Status: Acute (7) Gastroesophageal reflux disease Status: Acute (8) Paraesophageal hernia with obstruction but no gangrene Status: Acute (9) Osteoarthritis of knees, bilateral Status: Acute (10) Osteoarthritis, hip, bilateral Status: Acute (11) History of myocardial infarction Status: Acute (12) Iron deficiency anemia Status: Acute Plan: 1. Recommend suppository. 2. Correction of electrolyte abnormalities. 3. Hold BP medications. 4. Recommend iron IV infusions.
--- NOTE | 2016-11-24 18:55 | P.PN ---
Subjective Principal diagnosis: Morbid obesity The patient is a 65-year-old female who is status post lysis of adhesions including repair of a paraesophageal hiatal hernia and gastric bypass, postoperative day #2. She reports decreased abdominal distention today. Abdominal pain has improved. She had low blood pressure overnight however this resolved this morning. Objective - Vital Signs Vital signs: Vital Signs Temp 97.9 F 11/23/16 07:00 Pulse 79 11/23/16 08:35 Resp 12 11/23/16 07:00 BP 116/62 11/23/16 07:00 Pulse Ox 93 L 11/23/16 08:25 Intake & Output 11/22/16 11/23/16 11/23/16 18:59 06:59 18:59 Intake Total 650 2160 Output Total 650 Balance 650 1510 Weight 96 kg Intake: IV 1200 0.9% NaCl with KCl 20 Meq 1000 /l 1,000 ml @ 100 mls/hr IV .BY DURATION [facility] Rx#: [id number] Mvi, Adult No.4 with Vit 200 K 10 ml Thiamine 100 mg Folic Acid 1 mg Potassium Chloride 20 meq In Sodium Chloride 0.9% 1, 000 ml @ 100 mls/hr IV . BY DURATION [facility] Rx#: [id number] Oral 650 960 Output: Urine 650 Other: Voiding Method Toilet # Voids 2 4 - Exam GENERAL: Well developed and in no acute distress. Pleasant. HEENT: No sclera icterus. Extraocular movements grossly intact. Moist buccal mucosa. Head is atraumatic, normocephalic. Hears conversational speech. No nasal drainage. NECK: Supple without lymphadenopathy. CHEST: Non-labored respirations and equal bilateral excursions. CARDIOVASCULAR: Regular rate and rhythm. Palpable 2+ radial pulses. ABDOMEN: Soft, decreased distention. Milly-incisional tenderness. All laparoscopic sites clean dry and intact. No signs of infection or cellulitis. MUSCULOSKELETAL: No clubbing, cyanosis or edema. NEUROLOGIC: No focal or lateralizing signs. PSYCH: Appropriate affect. Alert and oriented to person, place and time. SKIN: Good skin turgor. Will perfused. - Labs CBC & Chem 7: 11/24/16 11:17 11/24/16 11:17 Labs: Abnormal Lab Results - Last 24 Hours (Table) 11/22/16 11/23/16 11/23/16 Range/Units 07:30 06:26 06:26 RBC 2.96 L (3.80-5.40) m/uL Hgb 9.4 L (11.4-16.0) gm/dL Hct 28.8 L (34.0-46.0) % Lymphocytes # 0.9 L (1.0-4.8) k/uL Chloride 109 H (98-107) mmol/L Phosphorus 2.2 L (2.5-4.5) mg/dL Iron 24 L (37-170) ug/dL % Saturation 8.1 L (20-50) % Assessment and Plan (1) BMI 38.0-38.9,adult Status: Acute (2) Depression Status: Acute (3) Gastroesophageal reflux disease Status: Acute (4) History of myocardial infarction Status: Acute (5) Hypertensive heart disease Status: Acute (6) Hypotension Status: Acute (7) Iron deficiency anemia Status: Acute (8) Morbid obesity due to excess calories Status: Acute (9) Osteoarthritis of knees, bilateral Status: Acute (10) Osteoarthritis, hip, bilateral Status: Acute (11) Paraesophageal hernia with obstruction but no gangrene Status: Acute (12) Sleep apnea Status: Acute (13) Hypophosphatemia Status: Acute Plan: 1. Repeat Dulcolax suppository. 2. IV fluid bolus. 3. Iron is low with iron infusion recommended. 4. Phosphorus also low with infusion recommended. 5. Anticipated discharge pending increased passage of flatus and resolution of expected postoperative ileus.
--- NOTE | 2016-11-24 18:58 | P.PN ---
Subjective Principal diagnosis: Morbid obesity The patient is a 65-year-old female who is status post lysis of adhesions including repair of a paraesophageal hiatal hernia and gastric bypass, postoperative day #3. Patient had witnessed moderate passage of flatus at bedside. She is ambulating. No reports of increased dizziness. Objective - Vital Signs Vital signs: Vital Signs Temp 98.4 F 11/24/16 07:27 Pulse 88 11/24/16 07:27 Resp 12 11/24/16 07:27 BP 135/73 11/24/16 07:27 Pulse Ox 92 L 11/24/16 07:27 Intake & Output 11/23/16 11/24/16 11/24/16 18:59 06:59 18:59 Intake Total 2610 3040 Balance 2610 3040 Weight 96 kg Intake: IV 800 1600 0.9% NaCl with KCl 20 Meq 800 1600 /l 1,000 ml @ 100 mls/hr IV .BY DURATION [facility] Rx#: [id number] Intake, IV Titration 1350 Amount 0.9% NaCl with KCl 20 Meq 1000 /l 1,000 ml @ 100 mls/hr IV .BY DURATION [facility] Rx#: [id number] Sodium Ferric Gluconat- 100 Sucrose 125 mg In Sodium Chloride 0.9% 100 ml @ 100 mls/hr IVPB DAILY [facility] Rx#:[id number] Sodium Phosphate 10 mmol 250 In Sodium Chloride 0.9% 250 ml @ 125 mls/hr IVPB Q2H [facility] Rx#:[id number] Oral 460 1440 Other: Voiding Method Toilet # Voids 3 3 - Exam GENERAL: Well developed and in no acute distress. Pleasant. Witnessed moderate flatus. HEENT: No sclera icterus. Extraocular movements grossly intact. Moist buccal mucosa. Head is atraumatic, normocephalic. Hears conversational speech. No nasal drainage. NECK: Supple without lymphadenopathy. CHEST: Non-labored respirations and equal bilateral excursions. CARDIOVASCULAR: Regular rate and rhythm. Palpable 2+ radial pulses. ABDOMEN: Soft, decreased distention. Milly-incisional tenderness. All laparoscopic sites clean dry and intact. No signs of infection or cellulitis. MUSCULOSKELETAL: No clubbing, cyanosis or edema. NEUROLOGIC: No focal or lateralizing signs. PSYCH: Appropriate affect. Alert and oriented to person, place and time. SKIN: Good skin turgor. Will perfused. - Labs CBC & Chem 7: 11/24/16 11:17 11/24/16 11:17 Labs: Abnormal Lab Results - Last 24 Hours (Table) 11/24/16 Range/Units 11:17 RBC 2.93 L (3.80-5.40) m/uL Hgb 9.2 L (11.4-16.0) gm/dL Hct 28.0 L (34.0-46.0) % Lymphocytes # 0.4 L (1.0-4.8) k/uL Assessment and Plan (1) BMI 38.0-38.9,adult Status: Acute (2) Depression Status: Acute (3) Gastroesophageal reflux disease Status: Acute (4) History of myocardial infarction Status: Acute (5) Hypertensive heart disease Status: Acute (6) Hypophosphatemia Status: Acute (7) Iron deficiency anemia Status: Acute (8) Morbid obesity due to excess calories Status: Acute (9) Osteoarthritis of knees, bilateral Status: Acute (10) Osteoarthritis, hip, bilateral Status: Acute (11) Paraesophageal hernia with obstruction but no gangrene Status: Acute (12) Sleep apnea Status: Acute Plan: 1. Troponins were unremarkable. 2. Plan for discharge home with follow-up at the bariatric center in 24 to 48 hours.
--- NOTE | 2016-11-24 19:01 | P.DS ---
Providers Date of admission: 11/21/16 06:21 Expected date of discharge: 11/24/16 Attending physician: Analisa Savage Primary care physician: Stated None - Discharge Diagnosis(es) (1) BMI 38.0-38.9,adult Status: Acute (2) Depression Status: Acute (3) Gastroesophageal reflux disease Status: Acute (4) History of myocardial infarction Status: Acute (5) Hypertensive heart disease Status: Acute (6) Hypophosphatemia Status: Acute (7) Hypotension Status: Acute (8) Iron deficiency anemia Status: Acute (9) Morbid obesity due to excess calories Status: Acute (10) Osteoarthritis of knees, bilateral Status: Acute (11) Osteoarthritis, hip, bilateral Status: Acute (12) Paraesophageal hernia with obstruction but no gangrene Status: Acute (13) Sleep apnea Status: Acute Hospital Course: POSTOPERATIVE DIAGNOSES: 1. Morbid obesity due to excess calories. 2. Body mass index 41.5. 3. Anxiety. 4. Depression. 5. Severe gastroesophageal reflux disease. 6. Diaphragmatic hiatal hernia. 7. Obstructive sleep apnea. 8. Hypertensive heart disease. 9. Hypothyroidism. 10. Diffuse osteoarthritis. 11. Previous history of breast cancer. 12. Fibromyalgia. 13. Erosive esophagitis. 14. History of multiple intra-abdominal surgeries. 15. Cardiomyopathy. 16. History of peritoneal adhesions. 17. Kidney stones. 18. Stomach ulcers. 19. Fatty liver disease. 20. Diverticulitis. 21. Previous history of myocardial infarction. COURSE: Miladys Broussard is a 65 year old female with morbid obesity and severe gastroesophageal reflux disease. She has developed hypertension, osteoarthritis of the bilateral hips and knees as well as obstructive sleep apnea. Given the severity of her reflux disease, she is evaluating for the Raad-En-Y gastric bypass. She underwent surgical intervention and had developed abdominal distention. Prior to discharge, she was passing flatus. Abdominal pain had improved. She was tolerating her bariatric clear liquid diet. Procedures: OPERATION: 1. Laparoscopic Raad-en-Y gastric bypass, 75cm antecolic, antegastric Raad limb , with 25 mm EEA. 2. Laparoscopic extensive lysis of adhesions over 30 minutes. 3. Laparoscopic repair of incarcerated midline paraesophageal diaphragmatic hiatal hernia, 3 cm, with obstruction with [place] Biopatch A 8 x 8 cm. 4. Intraoperative esophagogastroduodenoscopy. Patient Condition at Discharge: Stable Plan - Discharge Summary New Discharge Prescriptions: New HYDROcodone/APAP [[place] Elixir 7.5-325Mg/15Ml] 15 ml PO Q6HR PRN #400 ml PRN Reason: Pain Discontinued Lisinopril [Lisinopril] 20 mg PO HS Atenolol [Tenormin] 25 mg PO DAILY Aspirin [Adult Low Dose Aspirin EC] 81 mg PO DAILY Multivitamins, Thera [Multivitamin] 1 tab PO DAILY Cholecalciferol [Vitamin D3] 1,000 unit PO DAILY Vitamin B Complex 1 cap PO DAILY Krill/Om-3/Dha/Epa/Phospho/Ast [[place]-3 Krill Oil 300 mg Sfgl] 1 cap PO DAILY Pravastatin Sodium [Pravachol] 40 mg PO HS Milk Thistle 175mg 175 mg PO BID No Action tiZANidine [Zanaflex] 4 mg PO BID PRN PRN Reason: Muscle Spasm Levothyroxine Sodium [Synthroid] 50 mcg PO DAILY Loratadine [Claritin] 10 mg PO DAILY DULoxetine HCL [Cymbalta] 60 mg PO BID Exemestane [Aromasin] 25 mg PO DAILY LORazepam [Ativan] 1 mg PO BID Montelukast [Singulair] 10 mg PO HS Ranitidine HCl [Zantac] 150 mg PO BID Discharge Medication List tiZANidine [Zanaflex] 4 mg PO BID PRN 01/04/14 [History] Levothyroxine Sodium [Synthroid] 50 mcg PO DAILY 03/25/16 [History] Loratadine [Claritin] 10 mg PO DAILY 03/25/16 [History] DULoxetine HCL [Cymbalta] 60 mg PO BID 11/15/16 [History] Exemestane [Aromasin] 25 mg PO DAILY 11/15/16 [History] LORazepam [Ativan] 1 mg PO BID 11/15/16 [History] Montelukast [Singulair] 10 mg PO HS 11/15/16 [History] Ranitidine HCl [Zantac] 150 mg PO BID 11/15/16 [History] HYDROcodone/APAP [[place] Elixir 7.5-325Mg/15Ml] 15 ml PO Q6HR PRN #400 ml [Rx] Follow up Appointment(s)/Referral(s): Analisa Savage MD [STAFF PHYSICIAN] - 11/25/16 11:00 am ([facility]) Patient Instructions/Handouts: Nutrition after Bariatric Surgery (GEN), Raad- en-Y Gastric Bypass (GEN) Activity/Diet/Wound Care/Special Instructions: No bath tub soaks. May shower. Start protein shakes for 3x per day. No lifting over 4 pounds in 4 weeks. May take milk of magnesia for constipation. Discharge Disposition: HOME SELF-CARE
== END 2016-11-24 12:46 | disposition home or self-care (01) | DRG 620 ==
LOC: 2ORWHC 11-21 06:21 → 3SUR 11-21 10:34
PROVIDERS: ADMIT Surgery Plastic and Reconstructive Surgery; ATTEND Surgery Plastic and Reconstructive Surgery
PROC: 0DNS4ZZ (ICD-10-PCS; principal; 2016-11-21 07:30)
PROC: 0D164ZA Bypass Stomach to Jejunum, Percutaneous Endoscopic Approach (ICD-10-PCS; principal; 2016-11-21 07:30)
PROC: 0BUR4JZ (ICD-10-PCS; principal; 2016-11-21 07:30)
PROC: 0DJ08ZZ Inspection of Upper Intestinal Tract, Via Natural or Artificial Opening Endoscopic (ICD-10-PCS; principal; 2016-11-21 07:30)
PROC: 0BUS4JZ (ICD-10-PCS; principal; 2016-11-21 07:30)
DX: E66.01 Morbid (severe) obesity due to excess calories (principal); K22.10 Ulcer of esophagus without bleeding; I11.9 Hypertensive heart disease without heart failure; K76.0 Fatty (change of) liver, not elsewhere classified; K44.0 Diaphragmatic hernia with obstruction, without gangrene; K57.92 Diverticulitis of intestine, part unspecified, without perforation or abscess without bleeding; E83.39 Other disorders of phosphorus metabolism; E03.9 Hypothyroidism, unspecified; D50.9 Iron deficiency anemia, unspecified; E78.5 Hyperlipidemia, unspecified; F32.9 Major depressive disorder, single episode, unspecified; F41.9 Anxiety disorder, unspecified; G47.33 Obstructive sleep apnea (adult) (pediatric); H35.30 Unspecified macular degeneration; I25.2 Old myocardial infarction; J45.909 Unspecified asthma, uncomplicated; K21.9 Gastro-esophageal reflux disease without esophagitis; K25.9 Gastric ulcer, unspecified as acute or chronic, without hemorrhage or perforation; M16.10 Unilateral primary osteoarthritis, unspecified hip; M17.0 Bilateral primary osteoarthritis of knee; M79.7 Fibromyalgia; Z68.41 Body mass index [BMI] 40.0-44.9, adult; Z79.82 Long term (current) use of aspirin; Z79.899 Other long term (current) drug therapy; Z80.8 Family history of malignant neoplasm of other organs or systems; Z82.49 Family history of ischemic heart disease and other diseases of the circulatory system; Z85.3 Personal history of malignant neoplasm of breast; Z87.442 Personal history of urinary calculi; Z87.891 Personal history of nicotine dependence
CPT/HCPCS: 80048; 80051; 80053; 82310; 82565; 82728; 83540; 83550; 83735; 84100; 84484; 84520; 85025; 86850; 86900; 86901; 93005; 94640; 94760; 94762; 96360; 97802; 99211

== ENCOUNTER → 2016-11-18 | Outpatient (CLI) | payer BC, MEDICARE ==
[2016-11-18 11:01] LABS: ALT 61 U/L (9-52); AST 32 U/L (14-36); Alkaline Phosphatase 95 U/L (38-126); Anion Gap 13 mmol/L; Blood Urea Nitrogen 23 mg/dL (7-17); Calcium 10.1 mg/dL (8.4-10.2); Carbon Dioxide 26 mmol/L (22-30); Chloride 100 mmol/L (98-107); Glucose 92 mg/dL (74-99); Non-African American GFR(MDRD) >60 (>60 ml/min/1.73 sqM); Sodium 139 mmol/L (137-145); Total Bilirubin 0.9 mg/dL (0.2-1.3); Total Protein 7.5 g/dL (6.3-8.2)
[2016-11-18 11:20] LABS: Aty Lym Flag Slight; CH 31.1; CHCM 33.5; HCT 42.9 % (34.0-46.0); HDW 2.37; HGB 14.6 gm/dL (11.4-16.0); MCH 31.8 pg (25.0-35.0); MCHC 34.1 g/dL (31.0-37.0); MCV 93.4 fL (80.0-100.0); Mean Platelet Volume 8.4; RBC 4.59 m/uL (3.80-5.40); RDW 13.8 % (11.5-15.5); WBC 5.7 k/uL (3.8-10.6)
[2016-11-18 14:56] LABS: Add Differential Manual Differential
[2016-11-18 14:57] LABS: Nucleated Red Blood Cells 0 /100 WBC (0-0); Total Cells Counted 100
[2016-11-18 14:58] LABS: Manual Review Performed; RBC Morphology Normal
== END | disposition home or self-care (01) ==
LOC: LABPAT 10:10
PROVIDERS: ATTEND Surgery Plastic and Reconstructive Surgery
DX: Z01.812 Encounter for preprocedural laboratory examination (principal); I10 Essential (primary) hypertension
CPT/HCPCS: 80053; 85025

== ENCOUNTER → 2016-11-25 | Outpatient (CLI) | payer BC, MEDICARE ==
[~2016-11-25] MED LIST changes: -ACETAMINOPHEN IV (For NPO) 1,000 MG in EMPTY BAG 1 BAG IVPB ONE; -DEXAMETHASONE SOD PHOSPHATE 10 MG/ML 1 ML VIAL IV ONE; -HEPARIN SODIUM,PORCINE 5,000 UNIT/ML 1 ML VIAL SQ ONE; -HYDROmorphone 1 MG/ML 1 ML SYRINGE IVP PRN; -LACTATED RINGERS 1,000 ML IV SCH; -MIDAZOLAM 2 MG/2 ML VIAL IV PRN; -ONDANSETRON 4 MG/2 ML VIAL IVP ONE; -Pre Op ABX Message 1 EACH MISC MISCELLANE ONE; -SCOPOLAMINE 1.5MG/72HR PATCH TRANSDERM ONE; +SODIUM CHLORIDE 0.9% 1,000 ML IV NR
[2016-11-25 12:40] VITALS: BP 71/40; PULSE 91; TEMP 98.4; BMI 41.8
--- NOTE | 2016-11-25 15:37 | P.PN ---
Progress Note - Text Patient reports hypotension with systolic pressures between 70 and 80s. Repeat was systolic 110s. Patient encouraged to have salt diet as she was avoiding all salts from her diet. Also recommend follow-up in 4 days. IV fluid bolus 2 L advised
== END | disposition home or self-care (01) ==
LOC: BARWHC3 11:05
PROVIDERS: ATTEND Surgery Plastic and Reconstructive Surgery
DX: I95.9 Hypotension, unspecified (principal)
CPT/HCPCS: 96360; 97802; 99211

== ENCOUNTER → 2016-11-28 | Outpatient (CLI) | payer BC, MEDICARE ==
[2016-11-28 09:39] VITALS: BP 119/77; PULSE 96; RESP 18; TEMP 97.7; BMI 36.0
[2016-11-28 11:18] LABS: CH 30.5; CHCM 32.8; HCT 29.4 % (34.0-46.0); HDW 3.14; HGB 9.7 gm/dL (11.4-16.0); Hypochromasia Slight; MCH 31.1 pg (25.0-35.0); MCHC 33.2 g/dL (31.0-37.0); MCV 93.8 fL (80.0-100.0); Mean Platelet Volume 7.7; RBC 3.13 m/uL (3.80-5.40); WBC 5.8 k/uL (3.8-10.6)
[2016-11-28 11:24] LABS: Iron 32 ug/dL (37-170)
[2016-11-28 11:33] LABS: Total Iron Binding Capacity 265 ug/dL (265-497)
== END | disposition home or self-care (01) ==
LOC: BARWHC3 08:55
PROVIDERS: ATTEND Surgery Plastic and Reconstructive Surgery
DX: Z48.815 Encounter for surgical aftercare following surgery on the digestive system (principal); E66.01 Morbid (severe) obesity due to excess calories; Z98.84 Bariatric surgery status; D50.8 Other iron deficiency anemias; Z68.36 Body mass index [BMI] 36.0-36.9, adult
CPT/HCPCS: 36415; 82728; 83540; 83550; 85027; 87070; 87075; 87077; 87186; 87205; 99211

== ENCOUNTER → 2016-12-02 | Outpatient (CLI) | payer BC, MEDICARE ==
--- NOTE | 2016-12-02 11:51 | XR ---
EXAMINATION TYPE: XR abdomen 2V DATE OF EXAM: 12/02/2016 HISTORY: Pain. Technique: 2 views of the abdomen are submitted. Comparison: None. Findings: There is no convincing evidence of pneumoperitoneum. Left upper abdominal surgical sutures noted. The Bowel gas pattern is nonspecific and nonobstructive. No sizable air-fluid levels are seen. No mass effects are noted. No renal calcifications are identified. IMPRESSION: 1. Nonspecific nonobstructive bowel gas pattern
[2016-12-02 12:15] LABS: CH 31.2; CHCM 32.1; HGB 11.2 gm/dL (11.4-16.0); Hypochromasia Slight; MCH 30.3 pg (25.0-35.0); MCHC 30.9 g/dL (31.0-37.0); MCV 97.9 fL (80.0-100.0); Macrocytosis Slight; Mean Platelet Volume 7.8; RBC 3.68 m/uL (3.80-5.40); RDW 15.5 % (11.5-15.5); WBC 7.7 k/uL (3.8-10.6)
[2016-12-02 12:22] LABS: ALT 50 U/L (9-52); AST 26 U/L (14-36); Alkaline Phosphatase 79 U/L (38-126); Anion Gap 12 mmol/L; Blood Urea Nitrogen 20 mg/dL (7-17); Calcium 9.5 mg/dL (8.4-10.2); Carbon Dioxide 26 mmol/L (22-30); Chloride 100 mmol/L (98-107); Glucose 83 mg/dL (74-99); Non-African American GFR(MDRD) >60 (>60 ml/min/1.73 sqM); Sodium 138 mmol/L (137-145); Total Bilirubin 0.6 mg/dL (0.2-1.3); Total Protein 7.1 g/dL (6.3-8.2)
[2016-12-06 12:21] VITALS: BP 120/57; PULSE 75; RESP 16; TEMP 98.2; BMI 38.2
== END | disposition home or self-care (01) ==
LOC: BARWHC3 09:54
PROVIDERS: ATTEND Surgery Plastic and Reconstructive Surgery
DX: R14.0 Abdominal distension (gaseous) (principal); D50.8 Other iron deficiency anemias; E66.01 Morbid (severe) obesity due to excess calories; R10.84 Generalized abdominal pain
CPT/HCPCS: 74020; 80053; 85027; 99211

== ENCOUNTER → 2016-12-11 | Outpatient (CLI) | payer BC, MEDICARE ==
--- NOTE | 2017-01-18 04:17 | P.PN ---
Progress Note - Text DATE OF SERVICE: 12/11/2016 CHIEF COMPLAINT: Status post gastric bypass. HISTORY OF PRESENT ILLNESS: Miladys Broussard is a 65 year old female status post gastric bypass on November 21, 2016. Her gastroesophageal reflux disease is completely resolved. Two weeks ago, she had an infection of her left lower quadrant incision which is now resolved. She has resolution of her left lower quadrant abdominal pain. No reports of fever, chills or palpitations. At her height of 5 feet 1 1/2 inches, her ideal body weight is 131 pounds. Her highest weight is 225 pounds. She has lost 28 pounds in 3 weeks. She has lost another 20 pounds in 2 weeks. She had recent blood work demonstrating iron deficiency anemia consistent with her fatigue. Today she comes in weighing 197 pounds. She is of medications related to blood pressure sleep apnea. She is having normal bowel movements. PHYSICAL EXAM: VITAL SIGNS: 5 feet 1.5 inches, 197 pounds. Body mass index 36.7. Vital Signs Temp 97.7 F 12/11/16 13:04 Pulse 85 12/11/16 13:04 Resp BP 123/78 12/11/16 13:04 Pulse Ox ABDOMEN: Abdomen is soft, non-distended. Resolved erythema and redness of the left lower abdomen. Nontender. GENERAL: Well-developed female in no acute distress HEENT: No scleral icterus. Extraocular movements grossly intact. NECK: Supple without lymphadenopathy. CHEST: Nonlabored respirations. CARDIOVASCULAR: Regular rate and regular rhythm. MUSCULOSKELETAL: No clubbing, cyanosis, or edema. NEURO: No focal or lateralizing signs. PSYCH: Affect flat. Alert and oriented to person, place, and time. ASSESSMENT: 1. Morbid obesity due to excess calories. 2. Body mass index down from 41.9 to 36.7. 3. Anxiety. 4. Depression. 5. Severe gastroesophageal reflux disease, resolved. 6. Obstructive sleep apnea, resolved. 7. Hypertensive heart disease, resolved. 8. Diffuse osteoarthritis, improved. 9. Fibromyalgia. 10. Status post gastric bypass. 11. Superficial surgical site infection due to clindamycin resistence and penicillin allergy. 12. Iron deficiency anemia with fatigue. PLAN: 1. Recommend iron supplement as she is moderately symptomatic fatigue. 2. Continue fluid hydration over 64 ounces. 3. Start of soft diet such as pureed or grounded foods. 4. IV fluid hydration as needed. 5. Follow-up in 1 month.
== END | disposition home or self-care (01) ==
CPT/HCPCS: 97803; 99211

== ENCOUNTER → 2017-01-02 | Outpatient (CLI) | payer BC, MEDICARE ==
--- NOTE | 2017-01-19 13:51 | P.PN ---
Progress Note - Text DATE OF SERVICE: 01/02/2017 CHIEF COMPLAINT: Status post gastric bypass. HISTORY OF PRESENT ILLNESS: Miladys Broussard is a 65 year old female status post gastric bypass on November 21, 2016. She is now 1-1/2 months out. She comes in complaining of diarrhea especially with warm tea. She reports troubles with swallowing pills. She has difficulty with solid foods. She reports this started within the week. Otherwise, she is tolerating liquids. She does report generalized fatigue. She is being treated for iron deficiency anemia. At her height of 5 feet 1 1/2 inches, her ideal body weight is 131 pounds. Her highest weight is 225 pounds. She has lost 36 pounds in 1.5 months. She has lost another 8 pounds in 3 weeks. Today she comes in weighing 189 pounds. Her gastroesophageal reflux disease is resolved. PHYSICAL EXAM: VITAL SIGNS: 5 feet 1.5 inches, 189 pounds. Body mass index 35.2 Vital Signs Temp 97.7 F 01/02/17 09:18 Pulse 79 01/02/17 09:18 Resp BP 130/85 01/02/17 09:18 Pulse Ox ABDOMEN: Abdomen is soft, non-distended. Nontender. All incisions completely granulated. GENERAL: Well-developed female in no acute distress. HEENT: No scleral icterus. Extraocular movements grossly intact. Hears conversational speech. NECK: Supple without lymphadenopathy. CHEST: Nonlabored respirations. CARDIOVASCULAR: Regular rate and regular rhythm. MUSCULOSKELETAL: No clubbing, cyanosis, or edema. NEURO: No focal or lateralizing signs. PSYCH: Affect flat. Alert and oriented to person, place, and time. ASSESSMENT: 1. Morbid obesity due to excess calories. 2. Body mass index down from 41.9 to 35.2 3. Anxiety. 4. Depression. 5. Severe gastroesophageal reflux disease, resolved. 6. Obstructive sleep apnea, resolved. 7. Hypertensive heart disease, resolved. 8. Diffuse osteoarthritis, improved. 9. Fibromyalgia. 10. Status post gastric bypass. 11. Iron deficiency anemia with fatigue. 12. Dysphagia to solid foods. PLAN: 1. Recommend upper endoscopy for diagnostic including therapeutic approach for suspected gastrojejunal stricture. 2. I've asked her to avoid eating solid foods and this may get stuck and cause additional pain. 3. Protein intake over 60 g advised. 4. Oral fluid intake of at least 64 ounces daily. 5. Continue with iron supplement for history of iron deficiency anemia.
== END | disposition home or self-care (01) ==
CPT/HCPCS: 97803; 99211

== ENCOUNTER 2017-01-07 08:46 | Day surgery (SDC) | payer BC, MEDICARE ==
[2017-01-06 12:17] VITALS: BMI 34.4
[~2017-01-07 08:46] MED LIST changes: +LACTATED RINGERS 1,000 ML IV SCH; +LIDOCAINE 1% 20 ML VIAL (10MG/ML) FOR IV START INTRADERMA PRN; -SODIUM CHLORIDE 0.9% 1,000 ML IV NR
[2017-01-07] MEDS ORDERED: SODIUM CHLORIDE 0.9% 2,000 ML IV ONE (09:12)
--- NOTE | 2017-01-07 09:12 | P.GSHP ---
History of Present Illness H&P Date: 01/07/17 CHIEF COMPLAINT: GERD HISTORY OF PRESENT ILLNESS: The patient is a 66-year-old female who presents reports gastroesophageal reflux disease. Upper endoscopy was offered for further evaluation and management. PAST MEDICAL HISTORY: Please see list. PAST SURGICAL HISTORY: Please see list. MEDICATIONS: Please see list. ALLERGIES: Please see list. SOCIAL HISTORY: No illicit drug use FAMILY HISTORY: No reports of Crohn disease or ulcerative colitis. REVIEW OF ORGAN SYSTEMS: CONSTITUTIONAL: No reports of fevers or chills. GI: Denies any blood in stools or constipation. PHYSICAL EXAM: VITAL SIGNS: Stable GENERAL: Well-developed and pleasant in no acute distress. HEENT: No scleral icterus. Extraocular movements grossly intact. Moist buccal mucosa. NECK: Supple without lymphadenopathy. CHEST: Unlabored respirations. Equal bilateral excursions. CARDIOVASCULAR: Regular rate and rhythm. Distal 2+ pulses. ABDOMEN: Soft, nondistended. MUSCULOSKELETAL: No clubbing, cyanosis, or edema. ASSESSMENT: 1. Gastroesophageal reflux disease PLAN: 1. Recommend proceeding with an upper endoscopy Past Medical History Past Medical History: Cancer, Eye Disorder, Fibromyalgia, Hyperlipidemia, Hypertension, Liver Disease, Myocardial Infarction ([place]), Osteoarthritis (OA), Skin Disorder, Thyroid Disorder Additional Past Medical History / Comment(s): BREAST CANCER, IRREGULAR HEARTBEAT ,MACULAR DEGENERATION, hx KIDNEY STONE, heart murmer, palpitations, IBS, fatty liver, eczema, urinary leakage, silent [place] Last Myocardial Infarction Date:: 2008 History of Any Multi-Drug Resistant Organisms: None Reported Past Surgical History: Bariatric Surgery, Heart Catheterization, Hysterectomy, Orthopedic Surgery, Tubal Ligation Additional Past Surgical History / Comment(s): LT BREAST LUMPECTOMY AND LYMPH NODE REMOVED, THYROID NODULE, LYSIS OF ADHESIONS, surgery for fx rt foot , gastric bypass 11-21-16 Past Anesthesia/Blood Transfusion Reactions: Motion Sickness Smoking Status: Former smoker - Past Family History Father Family Medical History: Cancer, Deep Vein Thrombosis (DVT) Additional Family Medical History / Comment(s): . Mother Family Medical History: Cancer Additional Family Medical History / Comment(s): SKIN CANCER Medications and Allergies Home Medications Medication Instructions Recorded Confirmed Type tiZANidine [Zanaflex] 4 mg PO BID PRN 01/04/14 01/06/17 History Levothyroxine Sodium [Synthroid] 50 mcg PO DAILY 03/25/16 01/06/17 History Loratadine [Claritin] 10 mg PO DAILY 03/25/16 01/06/17 History DULoxetine HCL [Cymbalta] 60 mg PO BID 11/15/16 01/06/17 History LORazepam [Ativan] 1 mg PO BID 11/15/16 01/06/17 History Ranitidine HCl [Zantac] 150 mg PO BID 11/15/16 01/06/17 History Atenolol [Tenormin] 25 mg PO DAILY 01/06/17 01/06/17 History Exemestane [Aromasin] 25 mg PO DAILY 01/06/17 01/06/17 History Multivitamins, Thera [Multivitamin 1 tab PO DAILY 01/06/17 01/06/17 History (formulary)] Allergies Allergy/AdvReac Type Severity Reaction Status Date / Time Penicillins Allergy Dyspnea Verified 01/06/17 12:03 grass pollen-perennial rye, AdvReac Itching Verified 01/06/17 12:03 standar house dust AdvReac Itching Verified 01/06/17 12:03
[2017-01-07 09:17] VITALS: TEMP 98.4
[2017-01-07] MEDS ORDERED: PROPOFOL 10 MG/ML 20 ML VIAL IV ONE (09:46)
--- NOTE | 2017-01-07 10:17 | P.PCN ---
Date of Procedure: 01/07/17 Description of Procedure: PREOPERATIVE DIAGNOSIS: Dysphagia. Nausea with vomiting. POSTOPERATIVE DIAGNOSIS: Dysphagia. Nausea with vomiting. Food bezoar. Gastrojejunal stricture with chronic ulcer without perforation OPERATION: Esophagogastroduodenoscopy with removal of foreign body, food bezoar. Esophagogastrojejunoscopy with balloon dilatation from 2 to 10 mm. SURGEON: Analisa Savage MD ANESTHESIA: MAC. INDICATIONS: The patient is a 66-year-old female who presents with a history of dysphagia, gastric bypass including nausea and vomiting. Benefits and risks of the procedure were described. Informed consent was obtained. DESCRIPTION: The patient was brought into the endoscopy suite and laid in the left lateral decubitus position. After a timeout was confirmed, the procedure was initiated. An Olympus gastroscope was passed along the posterior oropharynx down to the distal esophagus where the squamocolumnar junction was unremarkable. The gastric pouch was entered. Moderate retained food bezoar of cottage cheese in [place] was identified and removed via Barth net. A gastrojejunal stricture of 2 mm was found as the gastroscope was 8.6 mm in size and corresponded to the tip size of the balloon dilator. A [employer] balloon dilator was placed through the scope. Final insufflation up to 10 mm was performed with a total of 2 minutes. The scope was advanced up to 50 cm from the incisors into the Raad limb. The mucosa of the gastrojejunal anastomosis was intact. However chronic gastrojejunal marginal ulcer was encountered. No full-thickness injury was encountered. The GI tract was desufflated. The patient tolerated the procedure well. FINDINGS: Stricture of approximately 2 mm encountered. Chronic gastrojejunal ulceration encountered. Successful balloon dilatation to 10 mm. Moderate retained food bezoar. RECOMMENDATIONS: Omeprazole of at least 4 weeks. Repeat upper endoscopy with balloon dilation needed.
[2017-01-07 10:53] VITALS: PULSE 62
[2017-01-07 11:30] VITALS: BP 104/68; RESP 16
== END 2017-01-07 11:39 | disposition home or self-care (01) ==
LOC: ORWHC2ENDO 08:46
PROVIDERS: ATTEND Surgery Plastic and Reconstructive Surgery
DX: K21.9 Gastro-esophageal reflux disease without esophagitis (principal); R13.10 Dysphagia, unspecified; K28.7 Chronic gastrojejunal ulcer without hemorrhage or perforation; E07.9 Disorder of thyroid, unspecified; E78.5 Hyperlipidemia, unspecified; H35.30 Unspecified macular degeneration; I10 Essential (primary) hypertension; I25.2 Old myocardial infarction; K58.9 Irritable bowel syndrome, unspecified; M19.90 Unspecified osteoarthritis, unspecified site; M79.7 Fibromyalgia; Z85.3 Personal history of malignant neoplasm of breast; Z87.891 Personal history of nicotine dependence; Z88.0 Allergy status to penicillin; Z98.84 Bariatric surgery status; Z79.899 Other long term (current) drug therapy; K31.89 Other diseases of stomach and duodenum; T18.2XXA Foreign body in stomach, initial encounter
CPT/HCPCS: 43247; 43249; J2704; C1726

== ENCOUNTER → 2017-01-09 | Outpatient (CLI) | payer BC, MEDICARE ==
--- NOTE | 2017-01-19 21:13 | P.PN ---
Progress Note - Text DATE OF SERVICE: 01/09/2017 CHIEF COMPLAINT: Status post gastric bypass. HISTORY OF PRESENT ILLNESS: Miladys Broussard is a 65 year old female status post gastric bypass on November 21, 2016. She is now 2-1/2 months out. She had an upper endoscopy with findings of stricture. She is drinking warm beverage. Her epigastric abdominal pain is improved. At her height of 5 feet 1 1/2 inches, her ideal body weight is 131 pounds. Her highest weight is 225 pounds. She has lost 39 pounds in 2.5 months. She has lost another 3 pounds in 1 weeks. Today she comes in weighing 186 pounds. PHYSICAL EXAM: VITAL SIGNS: 5 feet 1.5 inches, 186 pounds. Body mass index 34.6 Vital Signs Temp 98.3 F 01/09/17 10:35 Pulse 76 01/09/17 10:35 Resp 16 01/09/17 10:35 BP 123/73 01/09/17 10:35 Pulse Ox ABDOMEN: Abdomen is soft, non-distended. Nontender. All incisions completely granulated. GENERAL: Well-developed female in no acute distress. HEENT: No scleral icterus. Extraocular movements grossly intact. Hears conversational speech. NECK: Supple without lymphadenopathy. CHEST: Nonlabored respirations. CARDIOVASCULAR: Regular rate and regular rhythm. MUSCULOSKELETAL: No clubbing, cyanosis, or edema. NEURO: No focal or lateralizing signs. PSYCH: Affect flat. Alert and oriented to person, place, and time. ASSESSMENT: 1. Morbid obesity due to excess calories. 2. Body mass index down from 41.9 to 34.6. 3. Anxiety. 4. Depression. 5. Severe gastroesophageal reflux disease, resolved. 6. Obstructive sleep apnea, resolved. 7. Hypertensive heart disease, resolved. 8. Diffuse osteoarthritis, improved. 9. Fibromyalgia. 10. Status post gastric bypass. 11. Iron deficiency anemia with fatigue. 12. Dysphagia to solid foods. PLAN: 1. Upper endoscopy as needed. 2. Warm beverages. 3. Recommend bariatric labs. 4. Follow-up in February 2017.
== END | disposition home or self-care (01) ==
CPT/HCPCS: 99211

== ENCOUNTER → 2017-07-02 | Outpatient (CLI) | payer BC, MEDICARE ==
[2017-07-02 14:56] VITALS: BMI 25.9
[2017-07-02 15:11] VITALS: BP 117/65; PULSE 59; TEMP 98.1
[2017-07-02 16:39] LABS: HCT 43.1 % (34.0-46.0); HGB 14.7 gm/dL (11.4-16.0); INR 1.1 (<1.2); MCH 32.5 pg (25.0-35.0); MCHC 34.1 g/dL (31.0-37.0); MCV 95.3 fL (80.0-100.0); Partial Thromboplastin Time 25.5 sec (22.0-30.0); Platelet Count 179 k/uL (150-450); Prothrombin Time 10.8 sec (9.0-12.0); RBC 4.52 m/uL (3.80-5.40); RDW 12.8 % (11.5-15.5); WBC 3.7 k/uL (3.8-10.6)
[2017-07-02 16:42] LABS: ALT 61 U/L (9-52); AST 34 U/L (14-36); Albumin 4.5 g/dL (3.5-5.0); Alkaline Phosphatase 88 U/L (38-126); Anion Gap 11 mmol/L; Blood Urea Nitrogen 25 mg/dL (7-17); Calcium 10.6 mg/dL (8.4-10.2); Carbon Dioxide 31 mmol/L (22-30); Chloride 101 mmol/L (98-107); Cholesterol 192 mg/dL (<200); Glucose 90 mg/dL (74-99); HDL Cholesterol 45 mg/dL (40-60); LDL Cholesterol,Calculated 127 mg/dL (0-99); Magnesium 2.5 mg/dL (1.6-2.3); Phosphorus 4.6 mg/dL (2.5-4.5); Potassium 4.8 mmol/L (3.5-5.1); Sodium 143 mmol/L (137-145); Total Bilirubin 0.8 mg/dL (0.2-1.3); Total Protein 7.5 g/dL (6.3-8.2); Triglycerides 98 mg/dL (<150)
[2017-07-03 01:20] LABS: Iron Saturation 20.91 (12.00-45.00)
[2017-07-03 01:34] LABS: Vitamin D 25 Hydroxy 33.6 ng/mL (30.0-100.0)
[2017-07-03 02:14] LABS: Hemoglobin A1C 5.1 % (4.0-6.0)
[2017-07-03 02:15] LABS: Folate, Serum 20.4 ng/mL
[2017-07-03 02:29] LABS: Parathyroid Hormone Intact 61.3 pg/mL (14.0-72.0)
[2017-07-03 16:21] LABS: Zinc, Serum 72 ug/dL (60-130)
[2017-07-04 00:54] LABS: Vitamin B1 79 ug/L (38-122)
[2017-07-04 08:41] LABS: Vitamin A 40 ug/dL (38-106)
[2017-07-05 23:21] LABS: Selenium 151 mcg/L (63-160)
== END | disposition home or self-care (01) ==
LOC: BARWHC3 13:18
PROVIDERS: ATTEND Surgery Plastic and Reconstructive Surgery
DX: E66.01 Morbid (severe) obesity due to excess calories (principal); E21.1 Secondary hyperparathyroidism, not elsewhere classified; D50.9 Iron deficiency anemia, unspecified; E44.0 Moderate protein-calorie malnutrition; E55.9 Vitamin D deficiency, unspecified; K74.1 Hepatic sclerosis; N19 Unspecified kidney failure; K50.90 Crohn's disease, unspecified, without complications
CPT/HCPCS: 36415; 80053; 80061; 82306; 82525; 82607; 82728; 82746; 83036; 83540; 83550; 83735; 83970; 84100; 84134; 84255; 84425; 84443; 84590; 84630; 85027; 85610; 85730; 97803; 99211

== ENCOUNTER 2017-07-21 06:02 | Day surgery (SDC) | payer BC, MEDICARE ==
[2017-07-16 15:49] VITALS: BMI 24.6
--- NOTE | 2017-07-20 15:16 | P.GSHP ---
History of Present Illness H&P Date: 07/20/17 CHIEF COMPLAINT: GERD HISTORY OF PRESENT ILLNESS: The patient is a 66-year-old female who presents reports gastroesophageal reflux disease. Upper endoscopy was offered for further evaluation and management. PAST MEDICAL HISTORY: Please see list. PAST SURGICAL HISTORY: Please see list. MEDICATIONS: Please see list. ALLERGIES: Please see list. SOCIAL HISTORY: No illicit drug use FAMILY HISTORY: No reports of Crohn disease or ulcerative colitis. REVIEW OF ORGAN SYSTEMS: CONSTITUTIONAL: No reports of fevers or chills. GI: Denies any blood in stools or constipation. PHYSICAL EXAM: VITAL SIGNS: Stable GENERAL: Well-developed and pleasant in no acute distress. HEENT: No scleral icterus. Extraocular movements grossly intact. Moist buccal mucosa. NECK: Supple without lymphadenopathy. CHEST: Unlabored respirations. Equal bilateral excursions. CARDIOVASCULAR: Regular rate and rhythm. Distal 2+ pulses. ABDOMEN: Soft, nondistended. MUSCULOSKELETAL: No clubbing, cyanosis, or edema. ASSESSMENT: 1. Gastroesophageal reflux disease PLAN: 1. Recommend proceeding with an upper endoscopy Past Medical History Past Medical History: Cancer, Eye Disorder, Fibromyalgia, Hyperlipidemia, Liver Disease, Myocardial Infarction ([place]), Osteoarthritis (OA), Skin Disorder, Thyroid Disorder Additional Past Medical History / Comment(s): BREAST CANCER, IRREGULAR HEARTBEAT ,MACULAR DEGENERATION, hx KIDNEY STONE, hx heart murmer and palpitations, IBS, fatty liver, eczema, urinary leakage, silent [place], hypertension in past, now BP runs low, rashes on serena arms, Last Myocardial Infarction Date:: 2009 approx History of Any Multi-Drug Resistant Organisms: None Reported Past Surgical History: Bariatric Surgery, Breast Surgery, Heart Catheterization , Hernia Repair, Hysterectomy, Orthopedic Surgery, Tubal Ligation Additional Past Surgical History / Comment(s): LT BREAST LUMPECTOMY AND LYMPH NODE REMOVED, THYROID NODULE removed, LYSIS OF ADHESIONS, surgery for fx rt foot , gastric bypass and repair of hiatal hernia 11-21-16, EGD, COLONOSCOPY Past Anesthesia/Blood Transfusion Reactions: Motion Sickness Smoking Status: Former smoker - Past Family History Father Family Medical History: Cancer, Deep Vein Thrombosis (DVT) Additional Family Medical History / Comment(s): lung Mother Family Medical History: Cancer Additional Family Medical History / Comment(s): SKIN CANCER Medications and Allergies Home Medications Medication Instructions Recorded Confirmed Type Levothyroxine Sodium [Synthroid] 50 mcg PO DAILY 03/25/16 07/16/17 History Loratadine [Claritin] 10 mg PO DAILY 03/25/16 07/16/17 History DULoxetine HCL [Cymbalta] 60 mg PO BID 11/15/16 07/16/17 History LORazepam [Ativan] 1 mg PO BID 11/15/16 07/16/17 History Atenolol [Tenormin] 25 mg PO DAILY 01/06/17 07/16/17 History Multivitamins, Thera [Multivitamin 2 tab PO BID 01/06/17 07/16/17 History (formulary)] Ascorbic Acid [Vitamin C] 500 mg PO DAILY 07/16/17 07/16/17 History Bariatric Vitamin 2 tab PO BID 07/16/17 07/16/17 History Exemestane [Aromasin] 25 mg PO DAILY 07/16/17 07/16/17 History Garlic 1 each PO DAILY 07/16/17 07/16/17 History Iron Tab 162 mg PO QAM 07/16/17 07/16/17 History Pravastatin Sodium [Pravachol] 40 mg PO HS 07/16/17 07/16/17 History Ubidecarenone [Co Q-10] 100 mg PO DAILY 07/16/17 07/16/17 History Allergies Allergy/AdvReac Type Severity Reaction Status Date / Time Penicillins Allergy Dyspnea Verified 07/16/17 15:30 grass pollen-perennial rye, AdvReac Itching Verified 07/16/17 15:30 standar house dust AdvReac Itching Verified 07/16/17 15:30
[~2017-07-21 06:02] MED LIST changes: -LIDOCAINE 1% 20 ML VIAL (10MG/ML) FOR IV START INTRADERMA PRN
[2017-07-21 06:51] VITALS: TEMP 97.9
[2017-07-21] MEDS ORDERED: LACTATED RINGERS 1,000 ML IV ONE ×2 (06:53)
[2017-07-21] MEDS ORDERED: PROPOFOL 10 MG/ML 20 ML VIAL IV ONE (07:00)
[2017-07-21] MEDS ORDERED: LIDOCAINE 1% INJ 10MG/ML (20 ML MDV) ONE (07:00)
--- NOTE | 2017-07-21 07:23 | P.PCN ---
Date of Procedure: 07/21/17 Description of Procedure: PREOPERATIVE DIAGNOSIS: Dysphagia. POSTOPERATIVE DIAGNOSIS: Dysphagia. Gastrojejunal stricture without chronic ulcer without perforation OPERATION: Esophagogastrojejunoscopy with balloon dilatation from 15 to 20 mm. SURGEON: Analisa Savage MD ANESTHESIA: MAC. INDICATIONS: The patient is a 66-year-old female who presents with a history of dysphagia. Benefits and risks of the procedure were described. Informed consent was obtained. DESCRIPTION: The patient was brought into the endoscopy suite and laid in the left lateral decubitus position. After a timeout was confirmed, the procedure was initiated. An Olympus gastroscope was passed along the posterior oropharynx down to the distal esophagus where the squamocolumnar junction was unremarkable. The gastric pouch was entered. A gastrojejunal stricture of 15 mm was found as the adult gastroscope was 9.5 mm in size. A [employer] balloon dilator was placed through the scope. Final insufflation up to 20 mm was performed with a total of 2 minutes. The scope was advanced up to 60 cm from the incisors into the Raad limb. The mucosa of the gastrojejunal anastomosis was intact. However chronic gastrojejunal marginal ulcer was encountered. No full-thickness injury was encountered. The GI tract was desufflated. The patient tolerated the procedure well. FINDINGS: Squamocolumnar junction unremarkable Stricture of approximately 15 mm encountered. No chronic gastrojejunal ulceration encountered. Successful balloon dilatation to 20 mm. RECOMMENDATIONS: Liquid diet. Upper endoscopy as needed. Plan - Discharge Summary New Discharge Prescriptions: No Action Levothyroxine Sodium [Synthroid] 50 mcg PO DAILY Loratadine [Claritin] 10 mg PO DAILY DULoxetine HCL [Cymbalta] 60 mg PO BID LORazepam [Ativan] 1 mg PO BID Atenolol [Tenormin] 25 mg PO DAILY Multivitamins, Thera [Multivitamin (formulary)] 2 tab PO BID Ascorbic Acid [Vitamin C] 500 mg PO DAILY Ubidecarenone [Co Q-10] 100 mg PO DAILY Exemestane [Aromasin] 25 mg PO DAILY Pravastatin Sodium [Pravachol] 40 mg PO HS Iron Tab 162 mg PO QAM Garlic 1 each PO DAILY Bariatric Vitamin 2 tab PO BID Discharge Medication List Levothyroxine Sodium [Synthroid] 50 mcg PO DAILY 12/05/16 [History] Loratadine [Claritin] 10 mg PO DAILY 03/25/16 [History] DULoxetine HCL [Cymbalta] 60 mg PO BID 11/15/16 [History] LORazepam [Ativan] 1 mg PO BID 11/15/16 [History] Atenolol [Tenormin] 25 mg PO DAILY 01/06/17 [History] Multivitamins, Thera [Multivitamin (formulary)] 2 tab PO BID 01/06/17 [History] Ascorbic Acid [Vitamin C] 500 mg PO DAILY 07/16/17 [History] Bariatric Vitamin 2 tab PO BID 07/16/17 [History] Exemestane [Aromasin] 25 mg PO DAILY 07/16/17 [History] Garlic 1 each PO DAILY 07/16/17 [History] Iron Tab 162 mg PO QAM 07/16/17 [History] Pravastatin Sodium [Pravachol] 40 mg PO HS 07/16/17 [History] Ubidecarenone [Co Q-10] 100 mg PO DAILY 07/16/17 [History]
[2017-07-21 07:34] VITALS: RESP 16
[2017-07-21 08:00] VITALS: BP 104/63; PULSE 59
== END 2017-07-21 08:24 | disposition home or self-care (01) ==
LOC: ORWHC2ENDO 06:02
PROVIDERS: ATTEND Surgery Plastic and Reconstructive Surgery
DX: K31.89 Other diseases of stomach and duodenum (principal); Z98.84 Bariatric surgery status; K58.9 Irritable bowel syndrome, unspecified; I25.10 Atherosclerotic heart disease of native coronary artery without angina pectoris; I10 Essential (primary) hypertension; K76.0 Fatty (change of) liver, not elsewhere classified; M79.7 Fibromyalgia; E78.5 Hyperlipidemia, unspecified; E07.9 Disorder of thyroid, unspecified; Z85.3 Personal history of malignant neoplasm of breast; I25.2 Old myocardial infarction; M19.90 Unspecified osteoarthritis, unspecified site; Z79.811 Long term (current) use of aromatase inhibitors; Z79.899 Other long term (current) drug therapy; Z88.0 Allergy status to penicillin; Z91.09 Other allergy status, other than to drugs and biological substances
CPT/HCPCS: 43245; J2001; J2704; C1726; 43249

== ENCOUNTER 2017-09-22 08:57 | Day surgery (SDC) | payer BC, MEDICARE ==
[2017-09-22 09:48] LABS: Mean Platelet Volume 9.4; Platelet Count 167 k/uL (150-450)
[2017-09-22 09:55] LABS: INR 1.2 (<1.2); Prothrombin Time 11.2 sec (9.0-12.0)
--- NOTE | 2017-09-22 11:01 | US ---
Discontinued fine-needle aspiration HISTORY: Palpable mass Ultrasound performed at the site of patient's palpable mass. There is no solid or cystic lesion. IMPRESSION: No biopsy performed at this time, reconsult as necessary. No target identified.
[2017-09-22 11:02] VITALS: BP 113/74; RESP 16
== END 2017-09-22 11:15 | disposition home or self-care (01) ==
LOC: RADPROMAIN 08:57
PROVIDERS: ATTEND Internal Medicine Hematology & Oncology
DX: R59.0 Localized enlarged lymph nodes (principal); C50.412 Malignant neoplasm of upper-outer quadrant of left female breast; Z53.8 Procedure and treatment not carried out for other reasons; Z91.030 Bee allergy status; Z88.0 Allergy status to penicillin; Z91.09 Other allergy status, other than to drugs and biological substances
CPT/HCPCS: 36415; 76536; 85049; 85610

== ENCOUNTER → 2017-09-22 | Outpatient (CLI) | payer BC, MEDICARE ==
[2017-09-22 09:57] LABS: Blood Urea Nitrogen 25 mg/dL (7-17)
--- NOTE | 2017-09-22 11:18 | CT ---
EXAMINATION TYPE: CT ChestAbdPelvis w con DATE OF EXAM: 09/22/2017 COMPARISON: NONE HISTORY: Malignant neoplasm of upper outer quadrant, history of left breast cancer CT DLP: 1012 mGycm CONTRAST: CT scan of the chest, abdomen and pelvis is performed with Oral Contrast and with IV Contrast, patien t injected with 100 mL of Isovue 300. CT Chest: LUNGS: The lungs are clear and free of infiltrate or atelectasis. No pulmonary nodule or mass is det ected. No evidence of pleural effusion. Mild subpleural interstitial prominence left upper lobe. MEDIASTINUM: Thoracic aorta is of normal caliber. The heart is not enlarged. No evidence for media stinal mass or adenopathy. HILAR STRUCTURES: No evidence for mass. No hilar adenopathy is appreciated. OTHER: No evidence for axillary adenopathy.. CONTRAST CT ABDOMEN AND PELVIS FINDINGS: LIVER/GB: No calcified gallstones. No space occupying hepatic lesion. Biliary tree is of normal ca liber. PANCREAS: No inflammation. No distinct mass. SPLEEN: No splenic enlargement. No lesion seen. ADRENALS: No nodule. No thickening. KIDNEYS/BLADDER: No hydronephrosis. No nephrolithiasis. No disctinct renal mass. BOWEL: Normal appendix. Normal bowel caliber. No inflammation. Moderate fecal stasis identified. GENITAL ORGANS: No gross abnormality. LYMPH NODES: No greater than 1cm abdominal or pelvic lymph nodes are appreciated. AORTA: No significant abnormality. OSSEOUS STRUCTURES: No significant abnormality is seen. OTHER: No significant additional abnormality is seen. IMPRESSION: 1. No evidence for metastatic disease. 2. No evidence for axillary adenopathy. Correlate clinically.
== END | disposition home or self-care (01) ==
LOC: RADCTMAIN 09:04
PROVIDERS: ATTEND Internal Medicine Hematology & Oncology
DX: C50.412 Malignant neoplasm of upper-outer quadrant of left female breast (principal); Z88.0 Allergy status to penicillin; Z91.030 Bee allergy status; Z91.048 Other nonmedicinal substance allergy status
CPT/HCPCS: 82565; 84520; 71260; 74177; Q9967

== ENCOUNTER → 2017-12-10 | Outpatient (CLI) | payer BC, MEDICARE ==
[2017-12-10 15:20] VITALS: BMI 22.4
[2017-12-10 16:04] VITALS: BP 127/69; PULSE 62; RESP 16; TEMP 98.5
--- NOTE | 2017-12-10 16:08 | P.PN ---
Subjective Progress Note Date: 12/10/17 DATE OF SERVICE: 12/10/2017 CHIEF COMPLAINT: Status post gastric bypass HISTORY OF PRESENT ILLNESS: Miladys Broussard is a 67 year old female status post gastric bypass on November 21, 2016. She is 1 year out. She has much energy. She is doing great! She has problem with eating meat. She has occasional dumping. In fact, her fibromyalgia is much better since her weight loss surgery. At her height of 5 feet 1 1/2 inches, her ideal body weight is 131 pounds. Her highest weight is 225 pounds. She has lost 18 pounds in 5 months. Today she comes in weighing 121 pounds from 139 pounds, 5 months ago. Lifetime weight loss is 104 pounds. Percent excess weight loss is 111%. PAST MEDICAL HISTORY: 1. Morbid obesity, BMI 41.9, initial 2. Gastroesophageal reflux disease, resolved 3. Seasonal allergies. 4. Hypertensive heart disease, resolved 5. Hypothyroidism. 6. Anxiety. 7. Osteoarthritis. 8. Vitamin D deficiency. 9. Hyperlipidemia. 10. Hiatal hernia 11. Previous history of breast cancer. 12. Kidney stones. 13. Stomach ulcers 14. Fatty liver disease, resolved 15. Diverticulitis. 16. Previous history of myocardial infarction. PAST SURGICAL HISTORY: 1. Heart catheterization. 2. Hysterectomy. 3. Tubal ligation. 4. Left breast lumpectomy. 5. Left laminectomy. 6. Partial hysterectomy. 7. Diagnostic laparoscopy, lysis of adhesions 8. Gastric bypass MEDICATIONS: 1. Atenolol 2. Multivitamin. 3. Claritin. 4. Synthroid. 5. Lorazepam. 6. Cymbalta ALLERGIES: 1. PENICILLIN. 2. HOUSE DUST. 3. GRASS POLLEN. SOCIAL HISTORY: History of alcohol abuse including former tobacco use. FAMILY HISTORY: Pertinent for morbid obesity including hypertension, gastroesophageal reflux disease, heart disease. REVIEW OF SYSTEMS: CONSTITUTIONAL: At her height of 5 feet 1 1/2 inches, her ideal body weight is 131 pounds. Her highest weight is 225 pounds. She has lost 18 pounds in 5 months. Today she comes in weighing 121 pounds from 139 pounds, 5 months ago. Lifetime weight loss is 104 pounds. Percent excess weight loss is 111%. GASTROINTESTINAL: Gastroesophageal reflux disease, resolved. No dumping syndrome. Has constipation. RESPIRATORY: History of obstructive sleep apnea, now resolved. No pneumonias. HEENT: No troubles with vision or hearing. Has intermittent dysphagia to solid foods. ENDOCRINE: History of hypothyroidism. No reports of blood sugar glucose intolerance. CARDIOVASCULAR: Previous myocardial infarction. Hypertension, improved with decreased medications. MUSCULOSKELETAL: Has diffuse osteoarthritis. Also has fibromyalgia, now resolved. NEURO: No reports of stroke or seizure disorders. PSYCH: History of depression including anxiety. HEMATOLOGIC: No reports of easy bruising or bleeding. SKIN: No rash. No skin cancers. PHYSICAL EXAM: VITAL SIGNS: 5 feet 1.5 inches, 121 pounds. Body mass index 22.5 Vital Signs Temp 98.5 F 12/10/17 16:02 Pulse 62 12/10/17 16:02 Resp 16 12/10/17 16:02 BP 127/69 12/10/17 16:02 Pulse Ox ABDOMEN: Abdomen is soft, non-distended. No incisional hernias. Mild epigastric tenderness. GENERAL: Well-developed female in no acute distress. HEENT: No scleral icterus. Extraocular movements grossly intact. Hears conversational speech. NECK: Supple without lymphadenopathy. CHEST: Nonlabored respirations. CARDIOVASCULAR: Regular rate and regular rhythm. MUSCULOSKELETAL: No clubbing, cyanosis, or edema. NEURO: No focal or lateralizing signs. PSYCH: Affect flat. Alert and oriented to person, place, and time. SKIN: Well perfused. Good skin turgor. ASSESSMENT: 1. Morbid obesity due to excess calories. 2. Body mass index down from 41.9 to 22.5 3. Anxiety. 4. Depression. 5. Severe gastroesophageal reflux disease, resolved. 6. Obstructive sleep apnea, resolved. 7. Hypertensive heart disease, resolved. 8. Diffuse osteoarthritis, improved. 9. Fibromyalgia, resolved 10. Status post gastric bypass. 11. Fatigue 12. Epigastric abdominal pain 13. History of gastrojejunal stricture PLAN: 1. Recommend upper endoscopy for history of gastrojejunal stricture. 2. Recommend bariatric metabolic labs. 3. Correction of nutritional deficiencies 4. Recommend multivitamin Objective - Vital Signs Vital signs: Intake & Output 12/09/17 12/10/17 12/10/17 18:59 06:59 18:59 Weight 54.885 kg - Labs CBC & Chem 7: 12/10/17 16:54 12/10/17 16:54
[2017-12-10 17:34] LABS: HCT 38.8 % (34.0-46.0); HGB 12.7 gm/dL (11.4-16.0); MCH 31.4 pg (25.0-35.0); MCHC 32.8 g/dL (31.0-37.0); MCV 95.7 fL (80.0-100.0); Mean Platelet Volume 8.6; Platelet Count 152 k/uL (150-450); RBC 4.06 m/uL (3.80-5.40); RDW 12.8 % (11.5-15.5); WBC 3.6 k/uL (3.8-10.6)
[2017-12-10 17:45] LABS: INR 1.1 (<1.2); Partial Thromboplastin Time 25.2 sec (22.0-30.0); Prothrombin Time 10.7 sec (9.0-12.0)
[2017-12-10 18:18] LABS: ALT 52 U/L (9-52); AST 39 U/L (14-36); Albumin 4.1 g/dL (3.5-5.0); Alkaline Phosphatase 65 U/L (38-126); Anion Gap 8 mmol/L; Blood Urea Nitrogen 22 mg/dL (7-17); Calcium 9.9 mg/dL (8.4-10.2); Carbon Dioxide 29 mmol/L (22-30); Chloride 103 mmol/L (98-107); Cholesterol 160 mg/dL (<200); Glucose 86 mg/dL (74-99); HDL Cholesterol 61 mg/dL (40-60); LDL Cholesterol,Calculated 83 mg/dL (0-99); Magnesium 2.2 mg/dL (1.6-2.3); Phosphorus 4.4 mg/dL (2.5-4.5); Potassium 4.5 mmol/L (3.5-5.1); Sodium 140 mmol/L (137-145); Total Bilirubin 0.9 mg/dL (0.2-1.3); Total Protein 6.9 g/dL (6.3-8.2); Triglycerides 82 mg/dL (<150)
[2017-12-11 00:41] LABS: Iron Saturation 42.32 (12.00-45.00)
[2017-12-11 00:51] LABS: Vitamin D 25 Hydroxy 43.5 ng/mL (30.0-100.0)
[2017-12-11 01:05] LABS: Folate, Serum 15.3 ng/mL
[2017-12-11 01:07] LABS: Hemoglobin A1C 5.3 % (4.0-6.0)
[2017-12-11 01:15] LABS: Parathyroid Hormone Intact 48.8 pg/mL (14.0-72.0)
[2017-12-12 12:55] LABS: Zinc, Serum 58 ug/dL (60-130)
[2017-12-15 07:17] LABS: Vitamin B1 82 ug/L (38-122)
[2017-12-15 07:22] LABS: Vitamin A 38 ug/dL (38-106)
[2017-12-16 16:53] LABS: Selenium 119 mcg/L (63-160)
== END | disposition home or self-care (01) ==
LOC: BARWHC3 14:00
PROVIDERS: ATTEND Surgery Plastic and Reconstructive Surgery
DX: Z09 Encounter for follow-up examination after completed treatment for conditions other than malignant neoplasm (principal); E66.01 Morbid (severe) obesity due to excess calories; E21.1 Secondary hyperparathyroidism, not elsewhere classified; E89.1 Postprocedural hypoinsulinemia; D50.9 Iron deficiency anemia, unspecified; K90.9 Intestinal malabsorption, unspecified; E55.9 Vitamin D deficiency, unspecified; K74.1 Hepatic sclerosis; N19 Unspecified kidney failure; K50.90 Crohn's disease, unspecified, without complications; E60 Dietary zinc deficiency; Z98.84 Bariatric surgery status; F41.9 Anxiety disorder, unspecified; F32.9 Major depressive disorder, single episode, unspecified; M19.90 Unspecified osteoarthritis, unspecified site; R53.83 Other fatigue; R10.13 Epigastric pain; Z87.19 Personal history of other diseases of the digestive system; Z68.22 Body mass index [BMI] 22.0-22.9, adult; Z87.891 Personal history of nicotine dependence; Z88.0 Allergy status to penicillin; Z91.09 Other allergy status, other than to drugs and biological substances; Z79.899 Other long term (current) drug therapy; Z90.710 Acquired absence of both cervix and uterus
CPT/HCPCS: 36415; 80053; 80061; 82306; 82525; 82607; 82728; 82746; 83036; 83540; 83550; 83735; 83970; 84100; 84134; 84255; 84425; 84443; 84590; 84630; 85027; 85610; 85730; 97803; 99211

== ENCOUNTER 2018-01-21 10:01 | Day surgery (SDC) | payer BC, MEDICARE ==
[2018-01-16 16:21] VITALS: BMI 20.5
--- NOTE | 2018-01-20 22:49 | P.GSHP ---
History of Present Illness H&P Date: 01/21/18 CHIEF COMPLAINT: GERD HISTORY OF PRESENT ILLNESS: The patient is a 67-year-old female who presents reports gastroesophageal reflux disease. Upper endoscopy was offered for further evaluation and management. PAST MEDICAL HISTORY: Please see list. PAST SURGICAL HISTORY: Please see list. MEDICATIONS: Please see list. ALLERGIES: Please see list. SOCIAL HISTORY: No illicit drug use FAMILY HISTORY: No reports of Crohn disease or ulcerative colitis. REVIEW OF ORGAN SYSTEMS: CONSTITUTIONAL: No reports of fevers or chills. GI: Denies any blood in stools or constipation. PHYSICAL EXAM: VITAL SIGNS: Stable GENERAL: Well-developed and pleasant in no acute distress. HEENT: No scleral icterus. Extraocular movements grossly intact. Moist buccal mucosa. NECK: Supple without lymphadenopathy. CHEST: Unlabored respirations. Equal bilateral excursions. CARDIOVASCULAR: Regular rate and rhythm. Distal 2+ pulses. ABDOMEN: Soft, nondistended. MUSCULOSKELETAL: No clubbing, cyanosis, or edema. ASSESSMENT: 1. Gastroesophageal reflux disease PLAN: 1. Recommend proceeding with an upper endoscopy Past Medical History Past Medical History: Cancer, Eye Disorder, Fibromyalgia, Hyperlipidemia, Liver Disease, Myocardial Infarction ([place]), Osteoarthritis (OA), Skin Disorder, Thyroid Disorder Additional Past Medical History / Comment(s): BREAST CANCER, IRREGULAR HEARTBEAT ,MACULAR DEGENERATION, hx KIDNEY STONE, hx heart murmer and palpitations, IBS, fatty liver, eczema, urinary leakage, silent [place], hypertension in past, now BP runs low, rashes on serena arms, NECK LYMPH NODE BEING INVESTIGATED AUGUST 2017 Last Myocardial Infarction Date:: 2009 approx History of Any Multi-Drug Resistant Organisms: None Reported Past Surgical History: Bariatric Surgery, Breast Surgery, Heart Catheterization , Hernia Repair, Hysterectomy, Orthopedic Surgery, Tubal Ligation Additional Past Surgical History / Comment(s): LT BREAST LUMPECTOMY AND LYMPH NODE REMOVED, THYROID NODULE removed, LYSIS OF ADHESIONS, surgery for fx rt foot , gastric bypass and repair of hiatal hernia 11-21-16, EGD, COLONOSCOPY, ESOPHAGUS STRETCHED JUNE 2017 Past Anesthesia/Blood Transfusion Reactions: No Reported Reaction Smoking Status: Former smoker - Past Family History Father Family Medical History: Cancer, Deep Vein Thrombosis (DVT) Additional Family Medical History / Comment(s): lung Mother Family Medical History: Cancer Additional Family Medical History / Comment(s): SKIN CANCER Brother(s) Family Medical History: Cancer, Deep Vein Thrombosis (DVT) Additional Family Medical History / Comment(s): prostate Medications and Allergies Home Medications Medication Instructions Recorded Confirmed Type Levothyroxine Sodium [Synthroid] 50 mcg PO DAILY 03/25/16 01/16/18 History Loratadine [Claritin] 10 mg PO DAILY 03/25/16 01/16/18 History Atenolol [Tenormin] 25 mg PO DAILY 01/06/17 01/16/18 History Ascorbic Acid [Vitamin C] 500 mg PO DAILY 07/16/17 01/16/18 History Exemestane [Aromasin] 25 mg PO DAILY 07/16/17 01/16/18 History Iron Tab 162 mg PO QAM 07/16/17 01/16/18 History Pravastatin Sodium [Pravachol] 40 mg PO HS 07/16/17 01/16/18 History DULoxetine HCL [Cymbalta] 60 mg PO BID 09/11/17 01/16/18 History ALPRAZolam [Xanax] 0.5 mg PO BID PRN 01/16/18 01/16/18 History Fluticasone Nasal [place] [Flonase 1 spray EA NOSTRIL DAILY 01/16/18 01/16/18 History Nasal [place]] Gabapentin [Neurontin] 300 mg PO HS 01/16/18 01/16/18 History Ginkgo Biloba 500 mg PO DAILY 01/16/18 01/16/18 History Ginseng 100 mg PO DAILY 01/16/18 01/16/18 History Milk Thistle 150 mg PO DAILY 01/16/18 01/16/18 History Multivitamins, Thera [Multivitamin 1 tab PO DAILY 01/16/18 01/16/18 History (formulary)] Zinc 50 mg PO DAILY 01/16/18 01/16/18 History buPROPion XL [Wellbutrin Xl] 150 mg PO DAILY 01/16/18 01/16/18 History tiZANidine HCL [Zanaflex] 4 mg PO HS 01/16/18 01/16/18 History Allergies Allergy/AdvReac Type Severity Reaction Status Date / Time Penicillins Allergy Dyspnea Verified 01/16/18 16:06 grass pollen-perennial rye, AdvReac Itching Verified 01/16/18 16:06 standar house dust AdvReac Itching Verified 01/16/18 16:06
[2018-01-21 10:39] VITALS: RESP 16; TEMP 98.7
[2018-01-21] MEDS ORDERED: LIDOCAINE 1% 20 ML VIAL (10MG/ML) FOR IV START INTRADERMA ONE (10:49)
[2018-01-21] MEDS ORDERED: PROPOFOL 10 MG/ML 20 ML VIAL IV ONE (11:28)
[2018-01-21] MEDS ORDERED: LIDOCAINE 1% INJ 10MG/ML (20 ML MDV) ONE (11:28)
--- NOTE | 2018-01-21 11:41 | P.PCN ---
Date of Procedure: 01/21/18 Description of Procedure: PREOPERATIVE DIAGNOSIS: Dysphagia. POSTOPERATIVE DIAGNOSIS: Dysphagia. Gastrojejunal stricture without chronic ulcer without perforation Presbyesophagus OPERATION: Esophagogastrojejunoscopy with balloon dilatation, 20 mm. SURGEON: Analisa Savage MD ANESTHESIA: MAC. INDICATIONS: The patient is a 67-year-old female who presents with a history of dysphagia. Benefits and risks of the procedure were described. Informed consent was obtained. DESCRIPTION: The patient was brought into the endoscopy suite and laid in the left lateral decubitus position. After a timeout was confirmed, the procedure was initiated. An Olympus gastroscope was passed along the posterior oropharynx down to the distal esophagus where the squamocolumnar junction was unremarkable. The gastric pouch was entered. Tertiary contractions consistent with presbyesophagus was found. A gastrojejunal stricture of 15 mm was found as the adult gastroscope was 9.5 mm in size. A [employer] balloon dilator was placed through the scope. Final insufflation up to 20 mm was performed with a total of 1 minute. The scope was advanced up to 60 cm from the incisors into the Raad limb. The mucosa of the gastrojejunal anastomosis was intact without marginal ulcer. No full-thickness injury was encountered. The GI tract was desufflated. The patient tolerated the procedure well. FINDINGS: Squamocolumnar junction unremarkable Stricture of approximately 15 mm encountered. No chronic gastrojejunal ulceration encountered. Successful balloon dilatation to 20 mm. Tertiary contractions consistent with presbyesophagus was found. RECOMMENDATIONS: For symptomatic presbyesophagus, rigid dilation advised Upper endoscopy as needed. Plan - Discharge Summary New Discharge Prescriptions: No Action Levothyroxine Sodium [Synthroid] 50 mcg PO DAILY Loratadine [Claritin] 10 mg PO DAILY Atenolol [Tenormin] 25 mg PO DAILY Ascorbic Acid [Vitamin C] 500 mg PO DAILY Exemestane [Aromasin] 25 mg PO DAILY Pravastatin Sodium [Pravachol] 40 mg PO HS Iron Tab 162 mg PO QAM DULoxetine HCL [Cymbalta] 60 mg PO BID Fluticasone Nasal [place] [Flonase Nasal [place]] 1 spray EA NOSTRIL DAILY buPROPion XL [Wellbutrin Xl] 150 mg PO DAILY ALPRAZolam [Xanax] 0.5 mg PO BID PRN PRN Reason: Anxiety Multivitamins, Thera [Multivitamin (formulary)] 1 tab PO DAILY tiZANidine HCL [Zanaflex] 4 mg PO HS Zinc 50 mg PO DAILY Milk Thistle 150 mg PO DAILY Ginseng 100 mg PO DAILY Ginkgo Biloba 500 mg PO DAILY Gabapentin [Neurontin] 300 mg PO HS Discharge Medication List Levothyroxine Sodium [Synthroid] 50 mcg PO DAILY 03/25/16 [History] Loratadine [Claritin] 10 mg PO DAILY 03/25/16 [History] Atenolol [Tenormin] 25 mg PO DAILY 01/06/17 [History] Ascorbic Acid [Vitamin C] 500 mg PO DAILY 07/16/17 [History] Exemestane [Aromasin] 25 mg PO DAILY 07/16/17 [History] Iron Tab 162 mg PO QAM 07/16/17 [History] Pravastatin Sodium [Pravachol] 40 mg PO HS 07/16/17 [History] DULoxetine HCL [Cymbalta] 60 mg PO BID 09/11/17 [History] ALPRAZolam [Xanax] 0.5 mg PO BID PRN 01/16/18 [History] Fluticasone Nasal [place] [Flonase Nasal [place]] 1 spray EA NOSTRIL DAILY 01/16/18 [History] Gabapentin [Neurontin] 300 mg PO HS 01/16/18 [History] Ginkgo Biloba 500 mg PO DAILY 01/16/18 [History] Ginseng 100 mg PO DAILY 01/16/18 [History] Milk Thistle 150 mg PO DAILY 01/16/18 [History] Multivitamins, Thera [Multivitamin (formulary)] 1 tab PO DAILY 01/16/18 [History ] Zinc 50 mg PO DAILY 01/16/18 [History] buPROPion XL [Wellbutrin Xl] 150 mg PO DAILY 01/16/18 [History] tiZANidine HCL [Zanaflex] 4 mg PO HS 01/16/18 [History]
[2018-01-21 11:59] VITALS: BP 102/62; PULSE 50
== END 2018-01-21 12:15 | disposition home or self-care (01) ==
LOC: ORWHC2ENDO 10:01
PROVIDERS: ATTEND Surgery Plastic and Reconstructive Surgery
DX: K22.8 Other specified diseases of esophagus (principal); K21.9 Gastro-esophageal reflux disease without esophagitis; E78.5 Hyperlipidemia, unspecified; M79.7 Fibromyalgia; K76.0 Fatty (change of) liver, not elsewhere classified; I25.10 Atherosclerotic heart disease of native coronary artery without angina pectoris; I10 Essential (primary) hypertension; I25.2 Old myocardial infarction; E07.9 Disorder of thyroid, unspecified; K58.9 Irritable bowel syndrome, unspecified; L30.9 Dermatitis, unspecified; Z87.891 Personal history of nicotine dependence; Z79.890 Hormone replacement therapy; Z79.51 Long term (current) use of inhaled steroids; Z79.899 Other long term (current) drug therapy; Z88.0 Allergy status to penicillin; Z91.09 Other allergy status, other than to drugs and biological substances
CPT/HCPCS: 43245; J2001; J2704; C1726; 43249

== ENCOUNTER → 2018-12-23 | Outpatient (CLI) | payer BC, MEDICARE ==
[2018-12-23 17:01] VITALS: BP 124/74; PULSE 57; TEMP 98.1; BMI 23.3
--- NOTE | 2018-12-23 17:22 | P.PN ---
Subjective Progress Note Date: 12/23/18 HPI: She was off from fibromyalgia and now has trigger of her fibromyalgia after the flu. She reports colon polyps and is now due. She reports chronic constipation. She has troubles with textured foods. She reports epigastric pain. ABDOMEN: No hernia ASSESSMENT: 1. Diverticulitis 2. S/p gastric bypass 3. Colon polyps 4. Epigastric pain 5. Gastric ulcer PLAN: 1. Colonoscopy 2. EGD for dysphagia Objective - Vital Signs Vital signs: Vital Signs Temp 98.1 F 12/23/18 16:50 Pulse 57 L 12/23/18 16:50 Resp BP 124/74 12/23/18 16:50 Pulse Ox Intake & Output 12/22/18 12/23/18 12/23/18 18:59 06:59 18:59 Weight 56.79 kg
== END | disposition home or self-care (01) ==
LOC: BARWHC3 15:08
PROVIDERS: ATTEND Surgery Plastic and Reconstructive Surgery
DX: K57.92 Diverticulitis of intestine, part unspecified, without perforation or abscess without bleeding (principal); K63.5 Polyp of colon; K25.9 Gastric ulcer, unspecified as acute or chronic, without hemorrhage or perforation; Z98.84 Bariatric surgery status
CPT/HCPCS: 99211

== ENCOUNTER → 2018-12-23 | Outpatient (CLI) | payer BC, MEDICARE ==
[2018-12-23 18:39] LABS: HCT 40.3 % (34.0-46.0); HGB 13.1 gm/dL (11.4-16.0); MCH 30.8 pg (25.0-35.0); MCHC 32.4 g/dL (31.0-37.0); MCV 95.2 fL (80.0-100.0); Mean Platelet Volume 8.3; Platelet Count 189 k/uL (150-450); RBC 4.24 m/uL (3.80-5.40); RDW 13.4 % (11.5-15.5); WBC 4.8 k/uL (3.8-10.6)
[2018-12-23 18:47] LABS: Partial Thromboplastin Time 26.1 sec (22.0-30.0); Prothrombin Time 10.4 sec (9.0-12.0)
[2018-12-23 23:08] LABS: Iron Saturation 14.83 (12.00-45.00)
[2018-12-23 23:10] LABS: African American GFR (CKD) 103.2 (60.0-200.0); Albumin 4.5 g/dL (3.80-4.90); Albumin/Globulin Ratio 2.05 (1.60-3.17); Anion Gap 7.7 mmol/L (4.00-12.00); BUN/Creat Ratio 28.57 Ratio (12.00-20.00); Calcium 9.9 mg/dL (8.7-10.3); Carbon Dioxide 29.3 mmol/L (21.6-31.8); Chol/HDL Ratio 2.37; Globulin 2.2 g/dL (1.6-3.3); Magnesium 2.2 mg/dL (1.5-2.4); Phosphorus 3.8 mg/dL (2.4-5.1); Potassium 4.4 mmol/L (3.5-5.5); Total Bilirubin 0.7 mg/dL (0.3-1.2); Total Protein 6.7 g/dL (6.2-8.2)
[2018-12-23 23:14] LABS: Vitamin D 25 Hydroxy 29.2 ng/mL (30.0-100.0)
[2018-12-23 23:39] LABS: Folate, Serum 21.2 ng/mL
[2018-12-24 04:33] LABS: Hemoglobin A1C 5.3 % (4.0-6.0)
[2018-12-25 14:37] LABS: Zinc, Serum 67 ug/dL (60-130)
== END | disposition home or self-care (01) ==
LOC: LABMAIN 17:57
PROVIDERS: ATTEND Surgery Plastic and Reconstructive Surgery
DX: E66.01 Morbid (severe) obesity due to excess calories (principal); E21.1 Secondary hyperparathyroidism, not elsewhere classified; D50.9 Iron deficiency anemia, unspecified; K90.9 Intestinal malabsorption, unspecified; E89.1 Postprocedural hypoinsulinemia; E55.9 Vitamin D deficiency, unspecified; K76.9 Liver disease, unspecified; N19 Unspecified kidney failure; K50.90 Crohn's disease, unspecified, without complications
CPT/HCPCS: 36415; 80053; 80061; 82306; 82525; 82607; 82728; 82746; 83036; 83540; 83550; 83735; 83970; 84100; 84134; 84255; 84425; 84443; 84590; 84630; 85027; 85610; 85730

== ENCOUNTER 2019-01-18 09:35 | Day surgery (SDC) | payer BC, MEDICARE ==
[2019-01-14 13:16] VITALS: BMI 23.2
--- NOTE | 2019-01-17 20:30 | P.GSHP ---
History of Present Illness H&P Date: 01/18/19 CHIEF COMPLAINT: GERD and colon screen HISTORY OF PRESENT ILLNESS: The patient is a 68-year-old female who presents with gastroesophageal reflux disease and need for colon screen. Upper and lower endoscopy were offered for further evaluation and management. PAST MEDICAL HISTORY: Please see list. PAST SURGICAL HISTORY: Please see list. MEDICATIONS: Please see list. ALLERGIES: Please see list. SOCIAL HISTORY: No illicit drug use FAMILY HISTORY: No reports of Crohn disease or ulcerative colitis. REVIEW OF ORGAN SYSTEMS: CONSTITUTIONAL: No reports of fevers or chills. GI: Denies any blood in stools or constipation. PHYSICAL EXAM: VITAL SIGNS: Stable GENERAL: Well-developed pleasant in no acute distress. HEENT: No scleral icterus. Extraocular movements grossly intact. Moist buccal mucosa. NECK: Supple without lymphadenopathy. CHEST: Unlabored respirations. Equal bilateral excursions. CARDIOVASCULAR: Regular rate and rhythm. Distal 2+ pulses. ABDOMEN: Soft, nondistended. MUSCULOSKELETAL: No clubbing, cyanosis, or edema. ASSESSMENT: 1. Gastroesophageal reflux disease 2. Colon screen. PLAN: 1. Recommend proceeding with an upper and lower endoscopy Past Medical History Past Medical History: Cancer, Eye Disorder, Fibromyalgia, Hyperlipidemia, Hypertension, Liver Disease, Myocardial Infarction ([place]), Osteoarthritis (OA), Skin Disorder, Thyroid Disorder Additional Past Medical History / Comment(s): BREAST CA, IRREGULAR HEARTBEAT, MACULAR DEGENERATION, Hx KIDNEY STONE, hx heart murmer and palpitations, IBS, fatty liver, eczema, urinary leakage, silent [place], Hx HTN in past, Ryan CTS. Last Myocardial Infarction Date:: 2009 approx History of Any Multi-Drug Resistant Organisms: None Reported Past Surgical History: Bariatric Surgery, Breast Surgery, Heart Catheterization, Hernia Repair, Hysterectomy, Orthopedic Surgery, Tubal Ligation Additional Past Surgical History / Comment(s): LT BREAST LUMPECTOMY w/ LYMPH NODE REMOVED, THYROID NODULE removed, LYSIS OF ADHESIONS, surgery for fx rt foot , gastric bypass and repair of hiatal hernia 11-21-16, EGD, COLONOSCOPY, ESOPHAGUS STRETCHED JUNE 2017 Past Anesthesia/Blood Transfusion Reactions: No Reported Reaction, Motion Sickness Smoking Status: Former smoker - Past Family History Father Family Medical History: Cancer, Deep Vein Thrombosis (DVT), Myocardial Infarction ([place]) Additional Family Medical History / Comment(s): [place] lung Mother Family Medical History: Cancer Additional Family Medical History / Comment(s): SKIN CANCER Brother(s) Family Medical History: Cancer, Deep Vein Thrombosis (DVT) Additional Family Medical History / Comment(s): prostate Medications and Allergies Home Medications Medication Instructions Recorded Confirmed Type Levothyroxine Sodium [Synthroid] 50 mcg PO DAILY 03/25/16 01/14/19 History Loratadine [Claritin] 10 mg PO DAILY 03/25/16 01/14/19 History Atenolol [Tenormin] 25 mg PO DAILY 01/06/17 01/14/19 History Ascorbic Acid [Vitamin C] 500 mg PO DAILY 07/16/17 01/14/19 History Exemestane [Aromasin] 25 mg PO DAILY 07/16/17 01/14/19 History Pravastatin Sodium [Pravachol] 40 mg PO HS 07/16/17 01/14/19 History DULoxetine HCL [Cymbalta] 60 mg PO BID 09/11/17 01/14/19 History ALPRAZolam [Xanax] 0.5 mg PO BID PRN 01/16/18 01/14/19 History Fluticasone Nasal [place] [Flonase 1 spray EA NOSTRIL DAILY 01/16/18 01/14/19 History Nasal [place]] Ginkgo Biloba 60 mg PO DAILY 01/16/18 01/14/19 History Ginseng 100 mg PO DAILY 01/16/18 01/14/19 History Milk Thistle 150 mg PO DAILY 01/16/18 01/14/19 History Multivitamins, Thera [Multivitamin 1 tab PO DAILY 01/16/18 01/14/19 History (formulary)] Zinc 50 mg PO DAILY 01/16/18 01/14/19 History buPROPion XL [Wellbutrin Xl] 150 mg PO DAILY 01/16/18 01/14/19 History tiZANidine HCL [Zanaflex] 4 mg PO HS 01/16/18 01/14/19 History Omeprazole 40 mg PO DAILY #14 capsule. 03/17/18 01/14/19 Rx Gabapentin [Neurontin] 300 mg PO TID 12/23/18 01/14/19 History Cholecalciferol [Vitamin D3 (25 10,000 unit PO DAILY 01/14/19 01/14/19 History Mcg = 1000 Iu)] Allergies Allergy/AdvReac Type Severity Reaction Status Date / Time Penicillins Allergy Dyspnea Verified 01/14/19 12:52 grass pollen-perennial rye, AdvReac Itching Verified 01/14/19 12:52 standar house dust AdvReac Itching Verified 01/14/19 12:52
[~2019-01-18 09:35] MED LIST changes: +LIDOCAINE 1% 20 ML VIAL (10MG/ML) FOR IV START INTRADERMA PRN
[2019-01-18 10:10] VITALS: TEMP 97.6
[2019-01-18] MEDS ORDERED: LIDOCAINE 1% INJ 10MG/ML (20 ML MDV) ONE (10:23)
[2019-01-18] MEDS ORDERED: PROPOFOL 10 MG/ML 20 ML VIAL IV ONE (10:23)
--- NOTE | 2019-01-18 10:38 | P.PCN ---
Date of Procedure: 01/18/19 Description of Procedure: PREOPERATIVE DIAGNOSIS: Dysphagia. Gastrojejunal stricture without chronic ulcer without perforation Presbyesophagus POSTOPERATIVE DIAGNOSIS: Dysphagia. Gastrojejunal stricture without chronic ulcer without perforation Presbyesophagus OPERATION: Esophagogastrojejunoscopy with balloon dilatation, 20 mm. SURGEON: Analisa Savage MD ANESTHESIA: MAC. INDICATIONS: The patient is a 68-year-old female who presents with a history of dysphagia. Benefits and risks of the procedure were described. Informed consent was obtained. DESCRIPTION: The patient was brought into the endoscopy suite and laid in the left lateral decubitus position. After a timeout was confirmed, the procedure was initiated. An Olympus gastroscope was passed along the posterior oropharynx down to the distal esophagus where the squamocolumnar junction was unremarkable. The gastric pouch was entered. Tertiary contractions consistent with presbyesophagus was found. A gastrojejunal stricture of 15 mm was found as the adult gastroscope was 9.5 mm in size. A [employer] balloon dilator was placed through the scope. Final insufflation up to 20 mm was performed with a total of 1 minute. The scope was advanced up to 60 cm from the incisors into the Raad limb. The mucosa of the gastrojejunal anastomosis was intact without marginal ulcer. No full-thickness injury was encountered. The GI tract was desufflated. The patient tolerated the procedure well. FINDINGS: Squamocolumnar junction unremarkable at 37 cm from the incisors Stricture of approximately 15 mm encountered. No chronic gastrojejunal ulceration encountered. Successful balloon dilatation to 20 mm. Gastric pouch 3 cm RECOMMENDATIONS: Upper endoscopy as needed.
[2019-01-18 11:05] VITALS: RESP 18
--- NOTE | 2019-01-18 11:07 | P.PCN ---
Date of Procedure: 01/18/19 Description of Procedure: PREOPERATIVE DIAGNOSIS: History of colon polyps, high risk POSTOPERATIVE DIAGNOSIS: Ascending colon tubular adenoma Moderate to severe sigmoid diverticulosis OPERATION: Colonoscopy to the ileocecal valve and appendiceal orifice. Colonoscopy with hot snare polypectomy SURGEON: Analisa Savage MD. ANESTHESIA: MAC. INDICATIONS: The patient is a 68-year-old female who presents for colonoscopy screening. Last colonoscopy 5 years ago with multiple high-risk polyps. Benefits and risks were described and informed consent was obtained. DESCRIPTION OF PROCEDURE: The patient had undergone Suprep. She had been brought into the operating room and laid in the left lateral decubitus position. After adequate intravenous sedation, the rectum was examined with 2% lidocaine jelly. No external hemorrhoids were encountered. The rectal tone was within normal limits. No lesions were palpated in the rectal vault. An Olympus colonoscope was advanced until the ileocecal valve and appendiceal orifice were clearly viewed. The prep was good with visualization of the mucosal folds. The scope was removed with visualization of each mucosal fold. Moderate to severe sigmoid diverticulosis was encountered. Ascending colon polyp 5 mm was treated with snare polypectomy. No evidence of focal colitis was found. Retroflexion of the scope demonstrated grade 1 internal hemorrhoids without active bleeding or inflammation. The colon was desufflated. The patient had tolerated the procedure well. Withdrawal time was over 6 minutes. FINDINGS: Aronchick preparation quality scale 1 (1-5) Internal hemorrhoids, grade 1 No external hemorrhoids No arteriovenous malformations. Moderate to severe sigmoid diverticulosis requiring abdominal wall pressure to advance the scope Removal of 1 polyp: - Snare polypectomy 5 mm tubulovillous adenoma polyp, ascending colon No focal colitis. RECOMMENDATIONS: Rrepeat colonoscopy in 3 years, 2021 Plan - Discharge Summary Discharge Rx Participant: No New Discharge Prescriptions: No Action Levothyroxine Sodium [Synthroid] 50 mcg PO DAILY Loratadine [Claritin] 10 mg PO DAILY Atenolol [Tenormin] 25 mg PO DAILY Ascorbic Acid [Vitamin C] 500 mg PO DAILY Exemestane [Aromasin] 25 mg PO DAILY Pravastatin Sodium [Pravachol] 40 mg PO HS DULoxetine HCL [Cymbalta] 60 mg PO BID Fluticasone Nasal [place] [Flonase Nasal [place]] 1 spray EA NOSTRIL DAILY buPROPion XL [Wellbutrin Xl] 150 mg PO DAILY ALPRAZolam [Xanax] 0.5 mg PO BID PRN PRN Reason: Anxiety Multivitamins, Thera [Multivitamin (formulary)] 1 tab PO DAILY tiZANidine HCL [Zanaflex] 4 mg PO HS Zinc 50 mg PO DAILY Milk Thistle 150 mg PO DAILY Ginseng 100 mg PO DAILY Ginkgo Biloba 60 mg PO DAILY Omeprazole 40 mg PO DAILY #14 capsule. Gabapentin [Neurontin] 300 mg PO TID Cholecalciferol [Vitamin D3 (25 Mcg = 1000 Iu)] 10,000 unit PO DAILY Discharge Medication List Levothyroxine Sodium [Synthroid] 50 mcg PO DAILY 03/25/16 [History] Loratadine [Claritin] 10 mg PO DAILY 03/25/16 [History] Atenolol [Tenormin] 25 mg PO DAILY 01/06/17 [History] Ascorbic Acid [Vitamin C] 500 mg PO DAILY 07/16/17 [History] Exemestane [Aromasin] 25 mg PO DAILY 07/16/17 [History] Pravastatin Sodium [Pravachol] 40 mg PO HS 07/16/17 [History] DULoxetine HCL [Cymbalta] 60 mg PO BID 09/11/17 [History] ALPRAZolam [Xanax] 0.5 mg PO BID PRN 01/16/18 [History] Fluticasone Nasal [place] [Flonase Nasal [place]] 1 spray EA NOSTRIL DAILY 01/16/18 [History] Ginkgo Biloba 60 mg PO DAILY 01/16/18 [History] Ginseng 100 mg PO DAILY 01/16/18 [History] Milk Thistle 150 mg PO DAILY 01/16/18 [History] Multivitamins, Thera [Multivitamin (formulary)] 1 tab PO DAILY 01/16/18 [History] Zinc 50 mg PO DAILY 01/16/18 [History] buPROPion XL [Wellbutrin Xl] 150 mg PO DAILY 01/16/18 [History] tiZANidine HCL [Zanaflex] 4 mg PO HS 01/16/18 [History] Omeprazole 40 mg PO DAILY #14 capsule. 03/17/18 [Rx] Gabapentin [Neurontin] 300 mg PO TID 12/23/18 [History] Cholecalciferol [Vitamin D3 (25 Mcg = 1000 Iu)] 10,000 unit PO DAILY 01/14/19 [History] Follow up Appointment(s)/Referral(s): Analisa Savage MD [STAFF PHYSICIAN] - 02/02/19 Patient Instructions/Handouts: Esophageal Dilation (DC), Diverticulosis Diet (GEN), Diverticulosis (ED), Colorectal Polyps (IP) Activity/Diet/Wound Care/Special Instructions: Repeat colonoscopy in 3 years, 2021 Discharge Disposition: HOME SELF-CARE
[2019-01-18 11:27] VITALS: PULSE 50
[2019-01-18 12:00] VITALS: BP 108/69
== END 2019-01-18 11:48 | disposition home or self-care (01) ==
LOC: ORWHC2ENDO 09:35
PROVIDERS: ATTEND Surgery Plastic and Reconstructive Surgery
DX: Z12.11 Encounter for screening for malignant neoplasm of colon (principal); K63.5 Polyp of colon; K57.30 Diverticulosis of large intestine without perforation or abscess without bleeding; K64.0 First degree hemorrhoids; K91.89 Other postprocedural complications and disorders of digestive system; K22.8 Other specified diseases of esophagus; I10 Essential (primary) hypertension; E78.5 Hyperlipidemia, unspecified; I25.10 Atherosclerotic heart disease of native coronary artery without angina pectoris; I25.2 Old myocardial infarction; M79.7 Fibromyalgia; M19.90 Unspecified osteoarthritis, unspecified site; F41.9 Anxiety disorder, unspecified; F32.9 Major depressive disorder, single episode, unspecified; H35.30 Unspecified macular degeneration; K58.9 Irritable bowel syndrome, unspecified; K76.0 Fatty (change of) liver, not elsewhere classified; K21.9 Gastro-esophageal reflux disease without esophagitis; E07.9 Disorder of thyroid, unspecified; Z85.3 Personal history of malignant neoplasm of breast; Z86.010 Personal history of colon polyps; Z79.890 Hormone replacement therapy; Z79.899 Other long term (current) drug therapy; Z88.0 Allergy status to penicillin; Z91.09 Other allergy status, other than to drugs and biological substances; Z87.442 Personal history of urinary calculi; Z98.51 Tubal ligation status; Z90.710 Acquired absence of both cervix and uterus; Z98.890 Other specified postprocedural states; Z98.84 Bariatric surgery status; Z87.891 Personal history of nicotine dependence; Z82.49 Family history of ischemic heart disease and other diseases of the circulatory system; Z80.1 Family history of malignant neoplasm of trachea, bronchus and lung; Z80.8 Family history of malignant neoplasm of other organs or systems
CPT/HCPCS: 45385; 43245; 88305; J2001; J2704; 43249

== ENCOUNTER → 2019-02-19 | Outpatient (CLI) | payer BC, MEDICARE ==
--- NOTE | 2019-02-19 10:19 | US ---
EXAMINATION TYPE: US pelvic complete DATE OF EXAM: 02/19/2019 COMPARISON: NONE CLINICAL HISTORY: N83.9Ovarian mass;R10.11 Rt upper quadrant pain. on and off discomfort in pelvis, p atient unsure if related to bowels, partial hysterectomy 28yrs ago with unilateral oophorectomy, pt u nsure which ovary remains TECHNIQUE: TA. Transabdominal sonographic images of the pelvis were acquired. Date of LMP: 28 yrs ago EXAM MEASUREMENTS: Uterus: Surgically absent Endometrial Stripe: Surgically absent Right Ovary: not seen Left Ovary: not seen 1. Uterus: Surgically absent 2. Endometrium: Surgically absent 3. Right Ovary: not due to bowel gas, atrophy, or possible oophorectomy 4. Left Ovary: not due to bowel gas, atrophy, or possible oophorectomy 5. Bilateral Adnexa: wnl 6. Posterior cul-de-sac: wnl IMPRESSION: Uterus is surgically absent. The unilateral remaining ovary (unspecified laterality) is n ot seen due to overlying bowel gas and likely atrophy. Peristalsing bowel is noted without sonographi c suspicious mass.
--- NOTE | 2019-02-19 10:48 | US ---
EXAMINATION TYPE: US gallbladder DATE OF EXAM: 02/19/2019 COMPARISON: NONE CLINICAL HISTORY: N83.9Ovarian mass;R10.11 Rt upper quadrant pain. burning sensation in RUQ, strain f eeling EXAM MEASUREMENTS: Liver Length: 14.2 cm Gallbladder Wall: 0.1 cm CBD: 0.5 cm Right Kidney: 9.6 x 4.0 x 4.2 cm Pancreas: wnl Liver: wnl Gallbladder: probable posterior wall polyp = 0.2cm as this is nonshadowing. Evidence for sonographic Underwood's sign: no CBD: wnl Right Kidney: wnl IMPRESSION: 1. Nonshadowing 2 mm gallbladder lesion, likely a small polyp. Annual surveillance is recommended for polyps of this size. 2. No sonographic evidence of acute cholecystitis.
== END | disposition home or self-care (01) ==
LOC: RADUSWWP 08:11
PROVIDERS: ATTEND Surgery Plastic and Reconstructive Surgery
DX: K82.8 Other specified diseases of gallbladder (principal); N83.9 Noninflammatory disorder of ovary, fallopian tube and broad ligament, unspecified; Z88.0 Allergy status to penicillin; Z90.710 Acquired absence of both cervix and uterus
CPT/HCPCS: 76705; 76856

== ENCOUNTER 2020-08-09 09:04 | Day surgery (SDC) | payer MEDICARE, BC ==
[2020-08-07 11:31] VITALS: BMI 24.5
--- NOTE | 2020-08-09 08:29 | P.GSHP ---
History of Present Illness H&P Date: 08/09/20 CHIEF COMPLAINT: GERD and colon screen HISTORY OF PRESENT ILLNESS: The patient is a 69-year-old female who presents with gastroesophageal reflux disease and need for colon screen. Upper and lower endoscopy were offered for further evaluation and management. PAST MEDICAL HISTORY: Please see list. PAST SURGICAL HISTORY: Please see list. MEDICATIONS: Please see list. ALLERGIES: Please see list. SOCIAL HISTORY: No illicit drug use FAMILY HISTORY: No reports of Crohn disease or ulcerative colitis. REVIEW OF ORGAN SYSTEMS: CONSTITUTIONAL: No reports of fevers or chills. GI: Denies any blood in stools or constipation. PHYSICAL EXAM: VITAL SIGNS: Stable GENERAL: Well-developed pleasant in no acute distress. HEENT: No scleral icterus. Extraocular movements grossly intact. Moist buccal mucosa. NECK: Supple without lymphadenopathy. CHEST: Unlabored respirations. Equal bilateral excursions. CARDIOVASCULAR: Regular rate and rhythm. Distal 2+ pulses. ABDOMEN: Soft, nondistended. MUSCULOSKELETAL: No clubbing, cyanosis, or edema. ASSESSMENT: 1. Gastroesophageal reflux disease 2. Colon screen. PLAN: 1. Recommend proceeding with an upper and lower endoscopy Past Medical History Past Medical History: Cancer, Eye Disorder, Fibromyalgia, Hyperlipidemia, Hypertension, Liver Disease, Myocardial Infarction ([place]), Osteoarthritis (OA), Skin Disorder, Thyroid Disorder Additional Past Medical History / Comment(s): BREAST CA, IRREGULAR HEARTBEAT, MACULAR DEGENERATION, Hx KIDNEY STONE, hx heart murmer and palpitations, IBS, fatty liver, eczema, urinary leakage, silent [place], Hx HTN in past, Ryan CTS. Last Myocardial Infarction Date:: 2009 approx History of Any Multi-Drug Resistant Organisms: None Reported Past Surgical History: Bariatric Surgery, Breast Surgery, Heart Catheterization, Hernia Repair, Hysterectomy, Orthopedic Surgery, Tubal Ligation Additional Past Surgical History / Comment(s): LT BREAST LUMPECTOMY w/ LYMPH NODE REMOVED, THYROID NODULE removed, LYSIS OF ADHESIONS, surgery for fx rt foot , gastric bypass and repair of hiatal hernia 11-21-16, EGD, COLONOSCOPY, ESOPHAGUS STRETCHED JUNE 2017 Past Anesthesia/Blood Transfusion Reactions: No Reported Reaction, Motion Sickness Smoking Status: Former smoker - Past Family History Father Family Medical History: Cancer, Deep Vein Thrombosis (DVT), Myocardial Infarction ([place]) Additional Family Medical History / Comment(s): CA lung Mother Family Medical History: Cancer Additional Family Medical History / Comment(s): SKIN CANCER Brother(s) Family Medical History: Cancer, Deep Vein Thrombosis (DVT) Additional Family Medical History / Comment(s): prostate Medications and Allergies Home Medications Medication Instructions Recorded Confirmed Type Levothyroxine Sodium [Synthroid] 75 mcg PO DAILY 03/25/16 08/07/20 History Loratadine [Claritin] 10 mg PO DAILY 03/25/16 08/07/20 History atenoloL [Tenormin] 25 mg PO DAILY 01/06/17 08/07/20 History Ascorbic Acid [Vitamin C] 1,000 mg PO DAILY 07/16/17 08/07/20 History Exemestane [Aromasin] 25 mg PO DAILY 07/16/17 08/07/20 History Pravastatin Sodium [Pravachol] 40 mg PO HS 07/16/17 08/07/20 History DULoxetine HCL [Cymbalta] 60 mg PO BID 09/11/17 08/07/20 History Fluticasone Nasal [place] [Flonase 1 spray EA NOSTRIL DAILY PRN 01/16/18 08/07/20 History Nasal [place]] Milk Thistle 150 mg PO DAILY 01/16/18 08/07/20 History Multivitamins, Thera [Multivitamin 1 tab PO DAILY 01/16/18 08/07/20 History (formulary)] Zinc 50 mg PO DAILY 01/16/18 08/07/20 History buPROPion XL [Wellbutrin Xl] 150 mg PO DAILY 01/16/18 08/07/20 History tiZANidine HCL [Zanaflex] 4 mg PO HS 01/16/18 08/07/20 History Gabapentin [Neurontin] 400 mg PO TID 12/23/18 08/07/20 History Cholecalciferol [Vitamin D3 (25 5,000 unit PO DAILY 01/14/19 08/07/20 History Mcg = 1000 Iu)] ALPRAZolam [Xanax] 0.5 mg PO BID PRN 08/07/20 08/07/20 History Ferrous Sulfate [Feosol] 325 mg PO DAILY 08/07/20 08/07/20 History HYDROcodone/APAP 7.5-325MG [[place] 1 tab PO BID PRN 08/07/20 08/07/20 History 7.5-325] Magnesium 400 mg PO DAILY 08/07/20 08/07/20 History Sucralfate [Carafate] 1 gm PO BID PRN 08/07/20 08/07/20 History Ubidecarenone [Co Q-10] 100 mg PO DAILY 08/07/20 08/07/20 History Allergies Allergy/AdvReac Type Severity Reaction Status Date / Time Penicillins Allergy Dyspnea Verified 08/07/20 11:18 grass pollen-perennial rye, AdvReac Itching Verified 08/07/20 11:18 standar house dust AdvReac Itching Verified 08/07/20 11:18
[~2020-08-09 09:04] MED LIST changes: +LIDOCAINE 1% (10MG/ML) FOR IV START INTRADERMA PRN; -LIDOCAINE 1% 20 ML VIAL (10MG/ML) FOR IV START INTRADERMA PRN
[2020-08-09 09:26] VITALS: TEMP 98.7
[2020-08-09] MEDS ORDERED: LIDOCAINE 1% INJ 10MG/ML (20 ML MDV) ONE (10:28)
[2020-08-09] MEDS ORDERED: PROPOFOL 10 MG/ML 20 ML VIAL IV ONE (10:28)
[2020-08-09 11:41] VITALS: BP 107/56; PULSE 57; RESP 16
--- NOTE | 2020-08-09 11:51 | P.PCN ---
Date of Procedure: 08/09/20 Description of Procedure: PREOPERATIVE DIAGNOSIS: Personal history colon polyps POSTOPERATIVE DIAGNOSIS: Personal history colon polyps Severe sigmoid diverticulosis Internal hemorrhoids, grade 2 OPERATION: Colonoscopy to the hepatic flexure SURGEON: Analisa Savage MD. ANESTHESIA: MAC. INDICATIONS: The patient is a 69-year-old female who presents with personal history colon polyps. Last colonoscopy 5 years ago. Benefits and risks were described and informed consent was obtained. DESCRIPTION OF PROCEDURE: The patient had undergone Suprep tablets. The patient had been brought into the operating room and laid in the left lateral decubitus position. After adequate intravenous sedation, the rectum was examined with 2% lidocaine jelly. No external hemorrhoids were encountered. The rectal tone was within normal limits. No lesions were palpated in the rectal vault. An Olympus colonoscope was advanced to the hepatic flexure despite abdominal wall pressure and repositioning of the patient. She had a highly redundant sigmoid colon. The prep was good. Severe sigmoid diverticulosis was encountered. No colonic polyps were found distal to the hepatic flexure. No evidence of focal colitis was found. Retroflexion of the scope demonstrated grade 2 internal hemorrhoids without active bleeding or inflammation. The colon was desufflated. The patient had tolerated the procedure well. Withdrawal time was over 6 minutes. FINDINGS: Aronchick preparation quality scale 2 (1-5) Internal hemorrhoids, grade 1 No external prolapsed hemorrhoids. No arteriovenous malformations. No adenomatous polyps. No focal colitis. Severe sigmoid diverticulosis RECOMMENDATIONS: Lower endoscopy in 5 years, [address] of the abdomen pelvis for severity of diverticulosis Plan - Discharge Summary Discharge Rx Participant: No New Discharge Prescriptions: Continue Levothyroxine Sodium [Synthroid] 75 mcg PO DAILY Loratadine [Claritin] 10 mg PO DAILY atenoloL [Tenormin] 25 mg PO DAILY Ascorbic Acid [Vitamin C] 1,000 mg PO DAILY Exemestane [Aromasin] 25 mg PO DAILY Pravastatin Sodium [Pravachol] 40 mg PO HS DULoxetine HCL [Cymbalta] 60 mg PO BID Fluticasone Nasal [place] [Flonase Nasal [place]] 1 spray EA NOSTRIL DAILY PRN PRN Reason: sinus issues buPROPion XL [Wellbutrin XL] 150 mg PO DAILY Multivitamins, Thera [Multivitamin (formulary)] 1 tab PO DAILY tiZANidine HCL [Zanaflex] 4 mg PO HS Zinc 50 mg PO DAILY Milk Thistle 150 mg PO DAILY Gabapentin [Neurontin] 400 mg PO TID Cholecalciferol [Vitamin D3 (25 Mcg = 1000 Iu)] 5,000 unit PO DAILY Sucralfate [Carafate] 1 gm PO BID PRN PRN Reason: stomach upset Magnesium 400 mg PO DAILY HYDROcodone/APAP 7.5-325MG [[place] 7.5-325] 1 tab PO BID PRN PRN Reason: Pain Ferrous Sulfate [Iron (65 MG Elemental)] 325 mg PO DAILY ALPRAZolam [Xanax] 0.5 mg PO BID PRN PRN Reason: Anxiety Ubidecarenone [Co Q-10] 100 mg PO DAILY Discharge Medication List Levothyroxine Sodium [Synthroid] 75 mcg PO DAILY 03/25/16 [History] Loratadine [Claritin] 10 mg PO DAILY 03/25/16 [History] atenoloL [Tenormin] 25 mg PO DAILY 01/06/17 [History] Ascorbic Acid [Vitamin C] 1,000 mg PO DAILY 07/16/17 [History] Exemestane [Aromasin] 25 mg PO DAILY 07/16/17 [History] Pravastatin Sodium [Pravachol] 40 mg PO HS 07/16/17 [History] DULoxetine HCL [Cymbalta] 60 mg PO BID 09/11/17 [History] Fluticasone Nasal [place] [Flonase Nasal [place]] 1 spray EA NOSTRIL DAILY PRN 01/16/18 [History] Milk Thistle 150 mg PO DAILY 01/16/18 [History] Multivitamins, Thera [Multivitamin (formulary)] 1 tab PO DAILY 01/16/18 [History] Zinc 50 mg PO DAILY 01/16/18 [History] buPROPion XL [Wellbutrin XL] 150 mg PO DAILY 01/16/18 [History] tiZANidine HCL [Zanaflex] 4 mg PO HS 01/16/18 [History] Gabapentin [Neurontin] 400 mg PO TID 12/23/18 [History] Cholecalciferol [Vitamin D3 (25 Mcg = 1000 Iu)] 5,000 unit PO DAILY 01/14/19 [History] ALPRAZolam [Xanax] 0.5 mg PO BID PRN 08/07/20 [History] Ferrous Sulfate [Iron (65 MG Elemental)] 325 mg PO DAILY 08/07/20 [History] HYDROcodone/APAP 7.5-325MG [[place] 7.5-325] 1 tab PO BID PRN 08/07/20 [History] Magnesium 400 mg PO DAILY 08/07/20 [History] Sucralfate [Carafate] 1 gm PO BID PRN 08/07/20 [History] Ubidecarenone [Co Q-10] 100 mg PO DAILY 08/07/20 [History] Follow up Appointment(s)/Referral(s): Analisa Savage MD [STAFF PHYSICIAN] - 08/15/20 Patient Instructions/Handouts: *[facility] - (Anesthesia) Endoscopy Discharge Instructions, Colonoscopy (DC), Upper Endoscopy (DC), Diverticulosis Diet (GEN), Diverticulitis (IP), Esophageal Dilation (DC) Activity/Diet/Wound Care/Special Instructions: Repeat colonoscopy 5 years, 2025 Discharge Disposition: HOME SELF-CARE
--- NOTE | 2020-08-09 11:55 | P.PCN ---
Date of Procedure: 08/09/20 Description of Procedure: PREOPERATIVE DIAGNOSIS: Dysphagia. Esophageal dysmotility Gastroesophageal reflux disease POSTOPERATIVE DIAGNOSIS: Dysphagia. 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 INDICATIONS: The patient is a 69-year-old female who presents with a history of dysphagia. She has pre-existing history of gastrojejunal stricture. Benefits and risks of the procedure were described. Informed consent was obtained. DESCRIPTION: The patient was brought into the endoscopy suite and laid in the left lateral decubitus position. After a timeout was confirmed, the procedure was initiated. An Olympus gastroscope was passed into the posterior oropharynx down to the distal esophagus where severe tertiary contractions consistent with presbyesoph mann was found. Recurrent 1 cm diaphragmatic hernia was encountered. The scope was entered into the gastric pouch without gastrojejunal ulceration identified. Stenosis of 15 mm along the gastrojejunal anastomosis was found. A [employer] 20 mm balloon was placed along the scope and dilated for 2 minutes without full-thickness tear injury. Attention was brought to the esophageal stenosis. Next using an Hungarian rigid dilator, a guidewire was placed through the gastroscope. Next the scope was withdrawn. A 51-[place] rigid Hungarian dilator was passed carefully along the posterior oropharynx to 40 cm and left in place for 2-3 minutes stretch. The dilator was withdrawn including the guidewire. The scope was reentered along the posterior oropharynx without findings of full-thickness tear of the upper esophageal sphincter. No full-thickness injury was encountered. The GI tract was desufflated. The patient tolerated the procedure well. FINDINGS: Gastrojejunal anastomotic stricture without ulceration and a 50 mm stenosis dilated to 20 mm Severe tertiary contractions consistent with presbyesophagus. Hungarian rigid dilator 51-Croatian completed for esophageal stenosis. Recurrent hiatal hernia 1 cm. RECOMMENDATIONS: Upper endoscopy as needed
== END 2020-08-09 12:34 | disposition home or self-care (01) ==
LOC: ORWHC2ENDO 09:04
PROVIDERS: ATTEND Surgery Plastic and Reconstructive Surgery
DX: Z12.11 Encounter for screening for malignant neoplasm of colon (principal); K95.89 Other complications of other bariatric procedure; K44.9 Diaphragmatic hernia without obstruction or gangrene; K22.2 Esophageal obstruction; M79.7 Fibromyalgia; E78.5 Hyperlipidemia, unspecified; I10 Essential (primary) hypertension; I25.2 Old myocardial infarction; M19.90 Unspecified osteoarthritis, unspecified site; E07.9 Disorder of thyroid, unspecified; Z85.3 Personal history of malignant neoplasm of breast; K76.9 Liver disease, unspecified; H35.30 Unspecified macular degeneration; Z87.442 Personal history of urinary calculi; R01.1 Cardiac murmur, unspecified; R00.0 Tachycardia, unspecified; K58.9 Irritable bowel syndrome, unspecified; K76.0 Fatty (change of) liver, not elsewhere classified; L30.9 Dermatitis, unspecified; G56.03 Carpal tunnel syndrome, bilateral upper limbs; Z98.890 Other specified postprocedural states; Z90.710 Acquired absence of both cervix and uterus; Z98.51 Tubal ligation status; Z97.2 Presence of dental prosthetic device (complete) (partial); Z87.891 Personal history of nicotine dependence; Z82.49 Family history of ischemic heart disease and other diseases of the circulatory system; Z80.1 Family history of malignant neoplasm of trachea, bronchus and lung; Z80.8 Family history of malignant neoplasm of other organs or systems; Z80.42 Family history of malignant neoplasm of prostate; Z79.811 Long term (current) use of aromatase inhibitors; Z79.890 Hormone replacement therapy; Z79.899 Other long term (current) drug therapy; Z79.891 Long term (current) use of opiate analgesic; Z88.0 Allergy status to penicillin; Z91.048 Other nonmedicinal substance allergy status
CPT/HCPCS: 43245; J2001; J2704; C1726; 43249

== ENCOUNTER → 2020-08-15 | Outpatient (CLI) | payer MEDICARE, BC | END | disposition home or self-care (01) | LOC: LABWHC1 09:49 | PROVIDERS: ATTEND Surgery Plastic and Reconstructive Surgery | DX: I11.0 Hypertensive heart disease with heart failure (principal); I44.7 Left bundle-branch block, unspecified; R00.1 Bradycardia, unspecified; R94.31 Abnormal electrocardiogram [ECG] [EKG]; I50.9 Heart failure, unspecified | CPT/HCPCS: 93005 ==

== ENCOUNTER → 2020-08-29 | Outpatient (CLI) | payer MEDICARE, BC ==
[2020-08-29 14:27] LABS: INR 0.9 (<1.2); Partial Thromboplastin Time 23.9 sec (22.0-30.0); Prothrombin Time 10.2 sec (9.0-12.0)
[2020-08-29 19:05] LABS: HCT 39.8 % (37.2-46.3); HGB 12.8 g/dL (12.0-15.0); MCH 31.3 pg (27.0-32.0); MCHC 32.2 g/dL (32.0-37.0); MCV 97.3 fL (80.0-97.0); Mean Platelet Volume 11.5 fL (9.5-12.2); Platelet Count 239 X 10*3/uL (140-440); RBC 4.09 X 10*6/uL (4.10-5.20); RDW 13.3 % (11.5-14.5); WBC 4.89 X 10*3/uL (4.50-10.00)
[2020-08-29 21:37] LABS: Hemoglobin A1C 5.4 % (4.0-6.0)
[2020-08-30 00:36] LABS: % Iron Saturation 38.06 (12.00-45.00); African American GFR (CKD) 87.2 (60.0-200.0); Albumin 4.6 g/dL (3.80-4.90); Albumin/Globulin Ratio 2.3 (1.60-3.17); Anion Gap 8.3 mmol/L (4.00-12.00); Calcium 9.7 mg/dL (8.7-10.3); Carbon Dioxide 28.7 mmol/L (21.6-31.8); Chol/HDL Ratio 2.86; LDL Cholesterol,Calculated 100.2 mg/dL (0.0-131.0); Magnesium 2.3 mg/dL (1.5-2.4); Non-African American GFR(CKD) 75.2 (60.0-200.0); Phosphorus 3.9 mg/dL (2.4-5.1); Potassium 4.4 mmol/L (3.5-5.5); Total Bilirubin 0.9 mg/dL (0.3-1.2); Total Protein 6.6 g/dL (6.2-8.2); VLDL Calculation 18.8 mg/dL (5.00-40.00)
[2020-08-30 00:45] LABS: Ferritin 59.6 ng/mL (10.0-291.0)
[2020-08-30 01:11] LABS: Folate, Serum 14.6 ng/mL
[2020-08-30 14:08] LABS: Zinc, Serum 78 ug/dL (60-130)
[2020-08-31 12:20] LABS: Vit B1(Thiamine) 94 ug/L (38-122)
[2020-08-31 12:37] LABS: Vitamin A 54 ug/dL (38-106)
[2020-09-01 01:01] LABS: Selenium 181 mcg/L (63-160)
== END | disposition home or self-care (01) ==
LOC: LABWHC1 13:06
PROVIDERS: ATTEND Surgery Plastic and Reconstructive Surgery
DX: N19 Unspecified kidney failure (principal); E89.1 Postprocedural hypoinsulinemia; D50.8 Other iron deficiency anemias; E21.1 Secondary hyperparathyroidism, not elsewhere classified; E55.9 Vitamin D deficiency, unspecified; E66.01 Morbid (severe) obesity due to excess calories; K90.89 Other intestinal malabsorption; K74.1 Hepatic sclerosis; K50.90 Crohn's disease, unspecified, without complications
CPT/HCPCS: 36415; 80053; 80061; 82306; 82525; 82607; 82728; 82746; 83036; 83540; 83550; 83735; 83970; 84100; 84134; 84255; 84425; 84443; 84590; 84630; 85027; 85610; 85730

== ENCOUNTER → 2020-09-25 | Outpatient (CLI) | payer MEDICARE, BC ==
[2020-09-25 13:22] LABS: ALT 23 U/L (4-34); AST 35 U/L (14-36); African American GFR (CKD) >90 (>60 ml/min/1.73 sqM); Albumin 4.5 g/dL (3.5-5.0); Alkaline Phosphatase 63 U/L (38-126); Anion Gap 4 mmol/L; Blood Urea Nitrogen 21 mg/dL (7-17); Calcium 10.2 mg/dL (8.4-10.2); Carbon Dioxide 34 mmol/L (22-30); Chloride 105 mmol/L (98-107); Glucose 95 mg/dL (74-99); HCT 39.2 % (34.0-46.0); MCH 31.8 pg (25.0-35.0); MCHC 33.1 g/dL (31.0-37.0); MCV 96.1 fL (80.0-100.0); Mean Platelet Volume 8.1; Non-African American GFR(CKD) 90 (>60 ml/min/1.73 sqM); Platelet Count 204 k/uL (150-450); Potassium 5.2 mmol/L (3.5-5.1); RBC 4.08 m/uL (3.80-5.40); RDW 13.5 % (11.5-15.5); Sodium 143 mmol/L (137-145); Total Bilirubin 0.6 mg/dL (0.2-1.3); Total Protein 6.8 g/dL (6.3-8.2); WBC 3.8 k/uL (3.8-10.6)
== END | disposition home or self-care (01) ==
LOC: LABPAT 12:06
PROVIDERS: ATTEND Surgery Plastic and Reconstructive Surgery
DX: Z01.810 Encounter for preprocedural cardiovascular examination (principal)
CPT/HCPCS: 36415; 80053; 85027

== ENCOUNTER 2020-09-29 05:46 | Inpatient (IN) | payer MEDICARE, BC ==
[2020-09-27 09:38] VITALS: BMI 23.8
[~2020-09-29 05:46] MED LIST changes: +CLINDAMYCIN 900 MG in DEXTROSE 5% IN WATER 50 ML IVPB PRN; +GENTAMICIN 250 MG in SODIUM CHLORIDE 0.9% 100 ML IVPB PRN; +HEPARIN SODIUM,PORCINE/PF 5,000 UNIT/0.5 ML SYRINGE SQ PRN; -LACTATED RINGERS 1,000 ML IV SCH; -LIDOCAINE 1% (10MG/ML) FOR IV START INTRADERMA PRN
[2020-09-29] MEDS ORDERED: ONDANSETRON 4 MG/2 ML VIAL IVP ONE (06:06)
[2020-09-29] MEDS ORDERED: DEXAMETHASONE SOD PHOSPHATE 4 MG/ML 1 ML VIAL IV ONE (06:06)
[2020-09-29] MEDS ORDERED: MIDAZOLAM 2 MG/2 ML VIAL IV PRN (06:06)
[2020-09-29] MEDS ORDERED: ACETAMINOPHEN TAB 500 MG TAB ONE (06:28)
[2020-09-29] MEDS ORDERED: Antibiotics per Pharmacy 1 EACH MISC MISCELLANE PRN (06:39)
--- NOTE | 2020-09-29 06:47 | P.GSHP ---
History of Present Illness H&P Date: 09/29/20 CHIEF COMPLAINT: History of sigmoid diverticulitis HISTORY OF PRESENT ILLNESS: The patient is a 69-year-old female with long- standing history of sigmoid diverticulitis. She reports change in bowel habits, increasing abdominal pain of the lower abdomen worse in the last 3 months. She completed a colonoscopy which excluded underlying neoplasm. Now she presents for sigmoid colon resection. PAST MEDICAL HISTORY: 1. Morbid obesity, BMI 41.9, initial 2. Gastroesophageal reflux disease, resolved 3. Seasonal allergies. 4. Hypertensive heart disease, resolved 5. Hypothyroidism. 6. Anxiety. 7. Osteoarthritis. 8. Vitamin D deficiency. 9. Hyperlipidemia. 10. Hiatal hernia 11. Previous history of breast cancer. 12. Kidney stones. 13. Stomach ulcers 14. Fatty liver disease, resolved 15. Diverticulitis. 16. Previous history of myocardial infarction. PAST SURGICAL HISTORY: 1. Heart catheterization. 2. Hysterectomy. 3. Tubal ligation. 4. Left breast lumpectomy. 5. Left laminectomy. 6. Partial hysterectomy. 7. Diagnostic laparoscopy, lysis of adhesions 8. Gastric bypass MEDICATIONS: Home Medications Medication Instructions Recorded Confirmed Levothyroxine Sodium [Synthroid] 75 mcg PO DAILY 03/25/16 09/29/20 atenoloL [Tenormin] 25 mg PO DAILY 01/06/17 09/29/20 Ascorbic Acid [Vitamin C] 1,000 mg PO DAILY 07/16/17 09/29/20 Exemestane [Aromasin] 25 mg PO DAILY 07/16/17 09/29/20 DULoxetine HCL [Cymbalta] 60 mg PO BID 09/11/17 09/29/20 Milk Thistle 150 mg PO DAILY 01/16/18 09/29/20 Multivitamins, Thera [Multivitamin 1 tab PO DAILY 01/16/18 09/29/20 (formulary)] Zinc 50 mg PO DAILY 01/16/18 09/29/20 buPROPion XL [Wellbutrin XL] 150 mg PO DAILY 01/16/18 09/29/20 tiZANidine HCL [Zanaflex] 4 mg PO TID PRN 01/16/18 09/29/20 Gabapentin [Neurontin] 400 mg PO TID 12/23/18 09/29/20 Cholecalciferol [Vitamin D3 (25 5,000 unit PO DAILY 01/14/19 09/29/20 Mcg = 1000 Iu)] ALPRAZolam [Xanax] 0.5 mg PO BID PRN 08/07/20 09/29/20 Ferrous Sulfate [Iron (65 MG 325 mg PO DAILY 08/07/20 09/29/20 Elemental)] HYDROcodone/APAP 7.5-325MG [Providence 1 tab PO BID PRN 08/07/20 09/29/20 7.5-325] Magnesium 400 mg PO DAILY 08/07/20 09/29/20 Sucralfate [Carafate] 1 gm PO BID PRN 08/07/20 09/29/20 Ubidecarenone [Co Q-10] 100 mg PO DAILY 08/07/20 09/29/20 Neuriva 1 dose PO DAILY 09/27/20 09/29/20 diphenhydrAMINE [Benadryl] 25 mg PO BID PRN 09/27/20 09/29/20 ALLERGIES: Allergies Allergy/AdvReac Type Severity Reaction Status Date / Time Penicillins Allergy Dyspnea Verified 09/29/20 06:25 grass pollen-perennial rye, AdvReac Itching Verified 09/29/20 06:25 standar house dust AdvReac Itching Verified 09/29/20 06:25 SOCIAL HISTORY: History of alcohol abuse including former tobacco use. FAMILY HISTORY: Pertinent for morbid obesity including hypertension, gastroesophageal reflux disease, heart disease. REVIEW OF SYSTEMS: CONSTITUTIONAL: At her height of 5 feet 1 1/2 inches, her ideal body weight is 131 pounds. Her highest weight is 225 pounds. Her BMI was 41.9. GASTROINTESTINAL: Gastroesophageal reflux disease, resolved. No dumping syndrome. Has constipation. RESPIRATORY: History of obstructive sleep apnea, now resolved. No pneumonias. HEENT: No troubles with vision or hearing. Has intermittent dysphagia to solid foods. ENDOCRINE: History of hypothyroidism. No reports of blood sugar glucose intolerance. CARDIOVASCULAR: Previous myocardial infarction. Hypertension, improved with decreased medications. MUSCULOSKELETAL: Has diffuse osteoarthritis. Also has fibromyalgia, now resolved. NEURO: No reports of stroke or seizure disorders. PSYCH: History of depression including anxiety. HEMATOLOGIC: No reports of easy bruising or bleeding. SKIN: No rash. No skin cancers. PHYSICAL EXAM: VITAL SIGNS: Stable GENERAL: Well-developed pleasant in no acute distress. HEENT: No scleral icterus. Extraocular movements grossly intact. Moist buccal mucosa. He is hard of hearing. NECK: Supple without lymphadenopathy. CHEST: Unlabored respirations. Equal bilateral excursions. CARDIOVASCULAR: Regular rate and rhythm. Distal 2+ pulses. ABDOMEN: Soft, nontender, nondistended. MUSCULOSKELETAL: No clubbing, cyanosis, or edema. NERUO: Cranial nerves 2-12 grossly intact. PSYCH: Alert and oriented to person place and time. ASSESSMENT: 1. History of sigmoid diverticulitis PLAN: 1. Benefits and risks of surgical robotic sigmoid resection was reviewed in detail. Robotic-assisted approach was also described. 2. Enhanced colon recovery program. 3. DVT prophylaxis. 4. Antibiotic prophylaxis. 5. Inpatient hospitalization greater than 2 nights. 6. She is elevated risk with pre-existing heart disease and gastric bypass. Past Medical History Past Medical History: Cancer, Eye Disorder, Fibromyalgia, Hyperlipidemia, Hypertension, Liver Disease, Myocardial Infarction (PR), Osteoarthritis (OA), Skin Disorder, Thyroid Disorder Additional Past Medical History / Comment(s): BREAST CA, IRREGULAR HEARTBEAT, MACULAR DEGENERATION, Hx KIDNEY STONE, hx heart murmur and palpitations, IBS, fatty liver, eczema, urinary leakage, silent PR, Hx HTN in past, Ryan CTS, use rt arm for b/p, blood draws etc. Last Myocardial Infarction Date:: 2009 approx History of Any Multi-Drug Resistant Organisms: None Reported Past Surgical History: Bariatric Surgery, Breast Surgery, Heart Catheterization, Hernia Repair, Hysterectomy, Orthopedic Surgery, Tubal Ligation Additional Past Surgical History / Comment(s): LT BREAST LUMPECTOMY w/ LYMPH NODE REMOVED, THYROID NODULE removed, LYSIS OF ADHESIONS, surgery for fx rt foot , gastric bypass and repair of hiatal hernia 11-21-16, EGD, COLONOSCOPY, ESOPHAGUS STRETCHED JUNE 2017 Past Anesthesia/Blood Transfusion Reactions: No Reported Reaction, Motion Sickness Smoking Status: Former smoker - Past Family History Father Family Medical History: Cancer, Deep Vein Thrombosis (DVT), Myocardial Infarction (PR) Additional Family Medical History / Comment(s): CA lung Mother Family Medical History: Cancer Additional Family Medical History / Comment(s): SKIN CANCER Brother(s) Family Medical History: Cancer, Deep Vein Thrombosis (DVT) Additional Family Medical History / Comment(s): prostate Medications and Allergies Home Medications Medication Instructions Recorded Confirmed Type Levothyroxine Sodium [Synthroid] 75 mcg PO DAILY 03/25/16 09/29/20 History atenoloL [Tenormin] 25 mg PO DAILY 01/06/17 09/29/20 History Ascorbic Acid [Vitamin C] 1,000 mg PO DAILY 07/16/17 09/29/20 History Exemestane [Aromasin] 25 mg PO DAILY 07/16/17 09/29/20 History DULoxetine HCL [Cymbalta] 60 mg PO BID 09/11/17 09/29/20 History Milk Thistle 150 mg PO DAILY 01/16/18 09/29/20 History Multivitamins, Thera [Multivitamin 1 tab PO DAILY 01/16/18 09/29/20 History (formulary)] Zinc 50 mg PO DAILY 01/16/18 09/29/20 History buPROPion XL [Wellbutrin XL] 150 mg PO DAILY 01/16/18 09/29/20 History tiZANidine HCL [Zanaflex] 4 mg PO TID PRN 01/16/18 09/29/20 History Gabapentin [Neurontin] 400 mg PO TID 12/23/18 09/29/20 History Cholecalciferol [Vitamin D3 (25 5,000 unit PO DAILY 01/14/19 09/29/20 History Mcg = 1000 Iu)] ALPRAZolam [Xanax] 0.5 mg PO BID PRN 08/07/20 09/29/20 History Ferrous Sulfate [Iron (65 MG 325 mg PO DAILY 08/07/20 09/29/20 History Elemental)] HYDROcodone/APAP 7.5-325MG [Providence 1 tab PO BID PRN 08/07/20 09/29/20 History 7.5-325] Magnesium 400 mg PO DAILY 08/07/20 09/29/20 History Sucralfate [Carafate] 1 gm PO BID PRN 08/07/20 09/29/20 History Ubidecarenone [Co Q-10] 100 mg PO DAILY 08/07/20 09/29/20 History Neuriva 1 dose PO DAILY 09/27/20 09/29/20 History diphenhydrAMINE [Benadryl] 25 mg PO BID PRN 09/27/20 09/29/20 History Allergies Allergy/AdvReac Type Severity Reaction Status Date / Time Penicillins Allergy Dyspnea Verified 09/29/20 06:25 grass pollen-perennial rye, AdvReac Itching Verified 09/29/20 06:25 standar house dust AdvReac Itching Verified 09/29/20 06:25 Surgical - Exam Vital Signs Temp Pulse Resp BP Pulse Ox 98.0 F 58 L 16 114/62 100 09/29/20 06:17 09/29/20 06:17 09/29/20 06:17 09/29/20 06:17 09/29/20 06:17
[2020-09-29] MEDS ORDERED: GABAPENTIN 300 MG CAP PO STA (06:58)
[2020-09-29] MEDS: LACTATED RINGERS 1,000 ML IV SCH (06:59)
[2020-09-29] MEDS ORDERED: ALVIMOPAN 12 MG CAPSULE PO PRN (07:00)
[2020-09-29] MEDS ORDERED: HYDROmorphone 0.5 MG/0.5 ML SYRINGE IVP PRN (07:00)
[2020-09-29] MEDS ORDERED: ACETAMINOPHEN TAB 500 MG TAB PO PRN (07:00)
[2020-09-29 07:09] LABS: ALT 17 U/L (4-34); AST 30 U/L (14-36); African American GFR (CKD) >90 (>60 ml/min/1.73 sqM); Albumin 3.9 g/dL (3.5-5.0); Alkaline Phosphatase 55 U/L (38-126); Anion Gap 5 mmol/L; Blood Urea Nitrogen 12 mg/dL (7-17); Calcium 9.2 mg/dL (8.4-10.2); Carbon Dioxide 27 mmol/L (22-30); Chloride 109 mmol/L (98-107); Glucose 91 mg/dL (74-99); Non-African American GFR(CKD) >90 (>60 ml/min/1.73 sqM); Potassium 3.9 mmol/L (3.5-5.1); Sodium 141 mmol/L (137-145); Total Bilirubin 0.5 mg/dL (0.2-1.3); Total Protein 6.1 g/dL (6.3-8.2)
[2020-09-29] MEDS ORDERED: MIDAZOLAM 2 MG/2 ML VIAL IV ONE (07:11)
[2020-09-29 07:14] LABS: HCT 36.1 % (34.0-46.0); HGB 11.9 gm/dL (11.4-16.0); MCH 31.3 pg (25.0-35.0); MCHC 33.1 g/dL (31.0-37.0); MCV 94.6 fL (80.0-100.0); Mean Platelet Volume 8.6; Platelet Count 184 k/uL (150-450); RBC 3.81 m/uL (3.80-5.40); RDW 13.5 % (11.5-15.5); WBC 3.1 k/uL (3.8-10.6)
[2020-09-29] MEDS ORDERED: KETAMINE 10 MG/ML 20 ML VIAL ONE (07:25)
[2020-09-29] MEDS ORDERED: LIDOCAINE 1% INJ 10MG/ML (20 ML MDV) ONE (07:25)
[2020-09-29] MEDS ORDERED: SUCCINYLCHOLINE CHLORIDE 100 MG/5 ML SYR IV ONE (07:25)
[2020-09-29] MEDS ORDERED: fentaNYL (PF) 50 MCG/ML 2 ML AMP ONE (07:25)
[2020-09-29] MEDS ORDERED: SODIUM CHLORIDE 0.9% (PF) 10 ML VIAL ONE (07:25)
[2020-09-29] MEDS ORDERED: ROPIVACAINE 5 MG/ML 30 ML VIAL ONE (07:25)
[2020-09-29] MEDS ORDERED: NEOSTIGMINE 1 MG/ML 10 ML VIAL ONE (07:25)
[2020-09-29] MEDS ORDERED: ROCURONIUM 10 MG/ML (5 ML VIAL) IV ONE (07:25)
[2020-09-29] MEDS ORDERED: PROPOFOL 10 MG/ML 20 ML VIAL IV ONE (07:25)
[2020-09-29] MEDS ORDERED: GLYCOPYRROLATE 0.2 MG/ML 2 ML VIAL ONE (07:25)
[2020-09-29] MEDS ORDERED: ePHEDrine SULFATE/0.9% NACL/PF 50 MG/5 ML SYRINGE IV ONE (07:25)
[2020-09-29] MEDS ORDERED: LIDOCAINE 2%-EPI 1:100,000 20 ML VIAL SQ ONE (07:30)
[2020-09-29 08:00] LABS: Lymphocytes # (M) 0.78 k/uL (1.0-4.8); Monocytes # (M) 0.37 k/uL (0-1.0); Neutrophils # (M) 1.95 k/uL (1.3-7.7); Neutrophils % (M) 63 %; Nucleated Red Blood Cells 0 /100 WBC (0-0); Total Cells Counted 100
[2020-09-29] MEDS ORDERED: LACTATED RINGERS 1,000 ML IV ONE (10:23)
[2020-09-29] MEDS ORDERED: HYDROmorphone 0.5 MG/0.5 ML SYRINGE IVP ONE ×3 (11:27→11:53)
[2020-09-29] MEDS ORDERED: BENZOCAINE/MENTHOL LOZENG 1 EACH LOZENGE MUCOUS MEM PRN (11:33)
[2020-09-29] MEDS ORDERED: METOCLOPRAMIDE 5 MG/ML 2 ML VIAL IVP PRN (11:33)
[2020-09-29] MEDS ORDERED: HYDROmorphone 1 MG/ML 1 ML SYRINGE IVP PRN (11:33)
[2020-09-29] MEDS ORDERED: diphenhydrAMINE 25 MG CAP PO PRN (11:34)
[2020-09-29] MEDS ORDERED: ALPRAZolam 0.5 MG TAB PO PRN (11:34)
[2020-09-29] MEDS ORDERED: tiZANidine 4 MG TAB PO PRN (11:34)
[2020-09-29] MEDS ORDERED: HYDROcodone/APAP 7.5-325MG 1 EACH TAB PO PRN (11:34)
[2020-09-29] MEDS ORDERED: KETOROLAC 15 MG/ML 1 ML VIAL IVP ONE (11:53)
--- NOTE | 2020-09-29 13:05 | P.ANPRN ---
Procedure Note - Anesthesia - Nerve Block Performed Bilateral Erector Spinae Single Time Out Performed: Yes (711) Date of Procedure: 09/29/20 Procedure Start Time: 07:12 Procedure Stop Time: 07:18 Location of Patient: PreOp Indication: Acute Post-Operative Pain, Requested by Surgeon Specifically requested for management of pain by : Analisa Savage Sedation Type: Sedate with meaningful contact maintained Preparation: Sterile Prep Position: Supine Catheter: None Needle Types: Pajunk Needle Gauge: 21 (x2) Ultrasound used to visualize needle placement: Yes Ultrasound used to observe medication spread: Yes Injectate: 0.5% Ropivacaine (see comment for volume) ((Ropi 0.5% 15cc + Nacl PF 15cc) each side) Blood Aspirated: No Pain Paresthesia on Injection Noted: No Resistance on Injection: Normal Image Stored and Saved: Yes Events: Uneventful and Well Tolerated
[2020-09-29] MEDS: ONDANSETRON 4 MG/2 ML VIAL IVP SCH ×2 (14:23→16:11)
--- NOTE | 2020-09-29 15:06 | P.OP ---
Date of Procedure: 09/29/20 Description of Procedure: SURGEON: TOSHA SANCHEZ MD PREOPERATIVE DIAGNOSES: 1. Diverticulitis of the sigmoid colon 2. Gastroesophageal reflux disease 3. Seasonal allergies. 4. Hypertensive heart disease 5. Hypothyroidism. 6. Anxiety. 7. Osteoarthritis. 8. Vitamin D deficiency. 9. Hyperlipidemia. 10. Hiatal hernia 11. Previous history of breast cancer. 12. Kidney stones. 13. Stomach ulcers 14. Fatty liver disease 15. Previous history of myocardial infarction. 16. Chronic pain syndrome POSTOPERATIVE DIAGNOSES: 1. Diverticulitis of the sigmoid colon with moderate intrapelvic adhesions 2. Gastroesophageal reflux disease 3. Seasonal allergies. 4. Hypertensive heart disease 5. Hypothyroidism. 6. Anxiety. 7. Osteoarthritis. 8. Vitamin D deficiency. 9. Hyperlipidemia. 10. Hiatal hernia 11. Previous history of breast cancer. 12. Kidney stones. 13. Stomach ulcers 14. Fatty liver disease 15. Previous history of myocardial infarction. 16. Chronic pain syndrome 17. Chronic appendicitis OPERATION: 1. Robotic-assisted daVinci Xi laparoscopic lysis of adhesions over 30 minutes 2. Robotic-assisted daVinci Xi laparoscopic with sigmoid colectomy and low anterior resection using 29mm EEA Ethicon powered stapler 3. Robotic-assisted daVinci Xi laparoscopic appendectomy 4. Intraoperative colonoscopy for flexible sigmoidoscopy Anesthesia: GETA, local, regional Estimated Blood Loss (ml): 5 Pathology: other (Sigmoid colon, anastomosis, appendix) Condition: stable Disposition: floor COMPLICATIONS: None. Operative Findings: 1. Severe sigmoid diverticulosis with pelvic adhesions to the anterior abdominal wall 2. Dilated body of appendix with hyperemia including redundant cecum posterior to the bladder with chronic appendicitis 3. Redundant sigmoid colon for risk of sigmoid volvulus 4. Stool cyst from prior ruptured diverticulitis removed from the pelvis 5. Abnormal location of the cecum and appendix posterior inferior to the bladder identified INDICATIONS: The patient is a 69-year-old female with symptomatic sigmoid diverticulitis. Surgical intervention was described. Benefits and risks, including infection, bowel injury, ureteral injury, colostomy creation and possibility for additional surgery was discussed at length. Informed consent was obtained. All questions of the patient and family were answered. DESCRIPTION: Earlier the patient had undergone a bowel prep using the enhanced colon recovery program. The patient was transferred to the operating room onto a split leg table and repositioned to modified lithotomy following intubation. A Hope catheter was placed. The abdomen was then prepped and draped in standard sterile fashion as Ioban was placed along the abdomen to minimize any contamination of skin floor. After a timeout protocol was performed, attention was then brought to the left upper quadrant whereby a 0 degree 5 mm laparoscopic trocar entry was performed. The abdominal cavity was entered and insufflated to 15 mmHg pressure, which was tolerated well. Diagnostic laparoscopy confirmed severe adhesions omentum to abdominal wall involving the right upper quadrant, midline, epigastrium. Next trocars were placed 17 cm superior from the pelvis. A 12-mm trocar was placed along the right lateral abdominal wall. A 8 mm port was placed along the right upper quadrant. Ports were placed 10 cm apart from each other including 15-20 cm away from the target anatomy of the left pelvis. An 8-mm port was was placed along the left upper quadrant. The stapler 12-mm port was arranged along the left lateral abdominal wall. The patient was then placed in Trendelenburg position, at least 21. The robotic M86 Securityi XI system was primed. The robot was docked from the right side of the patient. Using atraumatic graspers and vessel sealer, the robotic system was docked and primed as described. Instruments were interchanged by the trust operations assistant including needle bus driver/monitor, clip vice president of brand management, hook cautery, robotic stapler and vessel sealer. The robot stapler was prepared along the right lateral abdominal wall. Initial attention was brought to lysis of adhesions involving pelvis. Lysis of adhesions was performed using vessel sealer over 30 minutes. Next, attention was brought to sigmoid colon. The sigmoid mesentery was mobilized using a vessel sealer. Using robot stapler 60 mm green loads, the descending colon was divided. Mobilization of the colon was performed to the pelvic brim along the sacral promontory. The mesentery of the sigmoid colon was mobilized towards the descending colon using a vessel sealer. Next, the top of the rectum was divided using robotic stapler 60 mm green loads. The rest of the sigmoid colon mesentery was mobilized using vessel sealer. Additionally, the sigmoid colon was mobilized onto the colon to minimize injury to the ureters. The cecum was redundant with the appendix and base of the cecum found posterior to the bladder. The appendix was dilated with hyperemia with risk of appendicitis. The mesoappendix was mobilized using vessel sealer. A blue 60 mm stapler was fired across the base of the appendix. The appendix was removed. I went to the foot of the bed for selection of a sizer. A colorectal colon anastomosis with an EEA 29-mm was selected after using a sizer along the rectum. For the proximal sigmoid colon, a 29-mm anvil was placed after creating a colotomy then closed using a stapler at the distal end. The robot arms were temporarily undocked. A stapler was entered along the rectum and mated to the anvil for 1 minute. The anastomosis was created. The donuts were thick on the rectum side and then on the colon side. I then performed a bedside flexible s igmoidoscopy using colonoscope where no leaks or defects were confirmed as the trust operations assistant placed normal saline along the pelvis. I re-scrubbed into the case. Irrigation fluid was suctioned from the abdomen. The robot was undocked. All needles were removed from the abdominal cavity. Via the left lateral 12-mm trocar site, the resected colon was retrieved after widening the skin incision to 3-cm. The fascial defect was oversewn using 0 Vicryl and a Solomon Patel. All incisions were cleansed using dilute normal saline and hydrogen peroxide mixture. Next all pneumoperitoneum was evacuated from the abdominal cavity. The 8-mm trocar sites were reapproximated using 4-0 Monocryl in an interrupted subcuticular fashion. Local anesthetic was infiltrated to all wounds for postop analgesia. All incisions were also cleansed with diluted hydrogen peroxide. An Optifoam surgical dressing was placed over the colon extraction site. Exofin was applied to the rest of the skin incisions. The patient was extubated successfully. The patient was transferred to the postanesthesia care unit in stable condition. Intraoperative findings including hyperemic appendix for appendicitis and ab normal location of the appendix and cecum were described.
[2020-09-29] MEDS ORDERED: SODIUM CHLORIDE 0.9% 1,000 ML IV ONE (15:38)
--- NOTE | 2020-09-29 15:40 | P.PN ---
Progress Note - Text Progress Note Date: 09/29/20 Patient evaluated after surgery. Pain is well-controlled. Will discontinue Hope. Discharge instructions reviewed. Follow-up in the office in 5 days.
[2020-09-29] MEDS: GABAPENTIN 400 MG CAP PO SCH ×2 (15:57→20:41)
[2020-09-29] MEDS: SIMETHICONE 40 MG/0.6 ML DROPS 2,000 MG/30 ML BOTTLE PO SCH ×2 (16:12→20:43)
[2020-09-29] MEDS: SODIUM CHLORIDE 0.9% 1,000 ML IV SCH (16:27)
[2020-09-29] MEDS: metroNIDAZOLE-NS PMX 500 MG in SALINE 1 100ML.BAG IVPB SCH (20:37)
[2020-09-29] MEDS: DULoxetine HCL 60 MG CAPSULE.DR PO SCH (20:41)
[2020-09-29] MEDS: HEPARIN SODIUM,PORCINE/PF 5,000 UNIT/0.5 ML SYRINGE SQ SCH (20:42)
[2020-09-30] MEDS: ONDANSETRON 4 MG/2 ML VIAL IVP SCH ×3 (00:02→11:51)
[2020-09-30] MEDS: metroNIDAZOLE-NS PMX 500 MG in SALINE 1 100ML.BAG IVPB SCH ×2 (00:02→08:00)
[2020-09-30] MEDS ORDERED: LEVOTHYROXINE 75 MCG TAB PO SCH (06:30)
[2020-09-30] MEDS: DULoxetine HCL 60 MG CAPSULE.DR PO SCH (07:59)
[2020-09-30] MEDS: GABAPENTIN 400 MG CAP PO SCH (08:00)
[2020-09-30] MEDS: SIMETHICONE 40 MG/0.6 ML DROPS 2,000 MG/30 ML BOTTLE PO SCH ×2 (08:01→11:53)
[2020-09-30] MEDS: HEPARIN SODIUM,PORCINE/PF 5,000 UNIT/0.5 ML SYRINGE SQ SCH (08:01)
[2020-09-30] MEDS: LACTATED RINGERS 1,000 ML IV SCH (08:03)
[2020-09-30] MEDS: SODIUM CHLORIDE 0.9% 1,000 ML IV SCH (08:03)
[2020-09-30] MEDS ORDERED: MAGNESIUM OXIDE 400 MG TAB PO SCH (09:00)
[2020-09-30] MEDS ORDERED: atenoloL 25 MG TAB PO SCH (09:00)
[2020-09-30] MEDS ORDERED: MULTIVITAMINS, THERA 1 EACH TAB PO SCH (09:00)
[2020-09-30] MEDS ORDERED: NON FORMULARY DRUG (Exemestane [Aromasin] 25 MG Tablet) PO SCH (09:00)
[2020-09-30] MEDS ORDERED: buPROPion XL 150 MG TAB.ER.24H PO SCH (09:00)
[2020-09-30] MEDS ORDERED: ALVIMOPAN 12 MG CAPSULE PO SCH (09:00)
--- NOTE | 2020-09-30 09:43 | P.PN ---
Subjective Progress Note Date: 09/30/20 Principal diagnosis: Status post sigmoid colectomy Patient had diarrhea yesterday evening. Complaining of mild abdominal discomfort. Appetite is diminished. No vomiting however. She is afebrile. No labs from today. Objective - Vital Signs Vital signs: Vital Signs Temp 97.8 F 09/30/20 07:32 Pulse 65 09/30/20 07:32 Resp 17 09/30/20 08:00 BP 96/59 09/30/20 07:32 Pulse Ox 96 09/30/20 07:32 Intake & Output 09/29/20 09/30/20 09/30/20 18:59 06:59 18:59 Intake Total 1462.25 Output Total 420 500 Balance 1042.25 -500 Weight 60.5 kg Intake: IV 1462.25 Output: Urine 415 500 Uretheral (Hope) 500 Estimated Blood Loss 5 Other: # Voids 2 - Exam Abdomen: Soft, nondistended, incisions clean and dry, minimal tenderness - Labs CBC & Chem 7: 09/29/20 06:55 09/29/20 06:44 Assessment and Plan (1) Diverticulitis Narrative/Plan: Patient doing well after robotic sigmoid colectomy. Begin full liquid diet. Ambulate. Possible discharge today. Current Visit: Yes Status: Acute Code(s): K57.92 - DVTRCLI OF INTEST, PART UNSP, W/O PERF OR ABSCESS W/O BLEED SNOMED Code(s): 082885407
[2020-09-30 11:48] LABS: Basophils # (A) 0.01 X 10*3/uL (0.00-0.10); Basophils % (A) 0.2 %; Eosinophils # (A) 0.01 X 10*3/uL (0.04-0.35); Eosinophils % (A) 0.2 %; HCT 32.1 % (37.2-46.3); HGB 10.3 g/dL (12.0-15.0); Lymphocytes # (A) 0.82 X 10*3/uL (0.90-5.00); Lymphocytes % (A) 18.3 %; MCH 31.7 pg (27.0-32.0); MCHC 32.1 g/dL (32.0-37.0); MCV 98.8 fL (80.0-97.0); Mean Platelet Volume 11.8 fL (9.5-12.2); Monocytes # (A) 0.51 X 10*3/uL (0.20-1.00); Monocytes % (A) 11.4 %; Neutrophils % (A) 69.5 %; Platelet Count 163 X 10*3/uL (140-440); RBC 3.25 X 10*6/uL (4.10-5.20); RDW 13.3 % (11.5-14.5); WBC 4.47 X 10*3/uL (4.50-10.00)
[2020-09-30 12:01] LABS: African American GFR (CKD) 107.8 (60.0-200.0); Anion Gap 5.6 mmol/L (4.00-12.00); Calcium 8.9 mg/dL (8.7-10.3); Carbon Dioxide 25.4 mmol/L (21.6-31.8); Potassium 3.7 mmol/L (3.5-5.5)
[2020-09-30 15:30] VITALS: BP 90/47; PULSE 72; RESP 18; TEMP 98.2
--- NOTE | 2020-10-02 20:46 | P.DS ---
Providers Date of admission: 09/29/20 05:46 Expected date of discharge: 09/30/20 Attending physician: Analisa Savage Primary care physician: Rios Alvarez - Discharge Diagnosis(es) (1) Gastric bypass status for obesity Status: Acute (2) Diverticulitis Status: Acute Hospital Course: POSTOPERATIVE DIAGNOSES: 1. Diverticulitis of the sigmoid colon with moderate intrapelvic adhesions 2. Gastroesophageal reflux disease 3. Seasonal allergies. 4. Hypertensive heart disease 5. Hypothyroidism. 6. Anxiety. 7. Osteoarthritis. 8. Vitamin D deficiency. 9. Hyperlipidemia. 10. Hiatal hernia 11. Previous history of breast cancer. 12. Kidney stones. 13. Stomach ulcers 14. Fatty liver disease 15. Previous history of myocardial infarction. 16. Chronic pain syndrome 17. Chronic appendicitis COURSE: The patient is a 69-year-old female with symptomatic sigmoid diverticulitis. She underwent sigmoid colectomy and low anterior resection. P rior to discharge, her pain was well-controlled. She was tolerating diet. Discharge instructions were reviewed. Procedures: OPERATION: 1. Robotic-assisted daVinci Xi laparoscopic lysis of adhesions over 30 minutes 2. Robotic-assisted daVinci Xi laparoscopic with sigmoid colectomy and low anterior resection using 29mm EEA Ethicon powered stapler 3. Robotic-assisted daVinci Xi laparoscopic appendectomy 4. Intraoperative colonoscopy for flexible sigmoidoscopy Anesthesia: GETA, local, regional Estimated Blood Loss (ml): 5 Pathology: other (Sigmoid colon, anastomosis, appendix) Condition: stable Disposition: floor COMPLICATIONS: None. Operative Findings: 1. Severe sigmoid diverticulosis with pelvic adhesions to the anterior abdominal wall 2. Dilated body of appendix with hyperemia including redundant cecum posterior to the bladder with chronic appendicitis 3. Redundant sigmoid colon for risk of sigmoid volvulus 4. Stool cyst from prior ruptured diverticulitis removed from the pelvis 5. Abnormal location of the cecum and appendix posterior inferior to the bladder identified Patient Condition at Discharge: Good Plan - Discharge Summary Discharge Rx Participant: Yes New Discharge Prescriptions: New Simethicone 40 mg/0.6 ml Drops [Mylicon Drops] 40 mg PO Q6HR PRN #30 ml PRN Reason: Abdominal Distention Acetaminophen [Tylenol] 650 mg PO Q4H #30 tab Continue Levothyroxine Sodium [Synthroid] 75 mcg PO DAILY atenoloL [Tenormin] 25 mg PO DAILY Exemestane [Aromasin] 25 mg PO DAILY DULoxetine HCL [Cymbalta] 60 mg PO BID buPROPion XL [Wellbutrin XL] 150 mg PO DAILY Multivitamins, Thera [Multivitamin (formulary)] 1 tab PO DAILY tiZANidine HCL [Zanaflex] 4 mg PO TID PRN PRN Reason: muscle spasms Gabapentin [Neurontin] 400 mg PO TID Sucralfate [Carafate] 1 gm PO BID PRN PRN Reason: stomach upset Magnesium 400 mg PO DAILY HYDROcodone/APAP 7.5-325MG [Bruno 7.5-325] 1 tab PO BID PRN PRN Reason: Pain ALPRAZolam [Xanax] 0.5 mg PO BID PRN PRN Reason: Anxiety diphenhydrAMINE [Benadryl] 25 mg PO BID PRN PRN Reason: Skin Irritation Discontinued Ascorbic Acid [Vitamin C] 1,000 mg PO DAILY Zinc 50 mg PO DAILY Milk Thistle 150 mg PO DAILY Cholecalciferol [Vitamin D3 (25 Mcg = 1000 Iu)] 5,000 unit PO DAILY Ferrous Sulfate [Iron (65 MG Elemental)] 325 mg PO DAILY Ubidecarenone [Co Q-10] 100 mg PO DAILY Neuriva 1 dose PO DAILY Discharge Medication List Levothyroxine Sodium [Synthroid] 75 mcg PO DAILY 03/25/16 [History] atenoloL [Tenormin] 25 mg PO DAILY 01/06/17 [History] Exemestane [Aromasin] 25 mg PO DAILY 07/16/17 [History] DULoxetine HCL [Cymbalta] 60 mg PO BID 09/11/17 [History] Multivitamins, Thera [Multivitamin (formulary)] 1 tab PO DAILY 01/16/18 [History] buPROPion XL [Wellbutrin XL] 150 mg PO DAILY 01/16/18 [History] tiZANidine HCL [Zanaflex] 4 mg PO TID PRN 01/16/18 [History] Gabapentin [Neurontin] 400 mg PO TID 12/23/18 [History] ALPRAZolam [Xanax] 0.5 mg PO BID PRN 08/07/20 [History] HYDROcodone/APAP 7.5-325MG [Bruno 7.5-325] 1 tab PO BID PRN 08/07/20 [History] Magnesium 400 mg PO DAILY 08/07/20 [History] Sucralfate [Carafate] 1 gm PO BID PRN 08/07/20 [History] diphenhydrAMINE [Benadryl] 25 mg PO BID PRN 09/27/20 [History] Acetaminophen [Tylenol] 650 mg PO Q4H #30 tab 09/29/20 [Rx] Simethicone 40 mg/0.6 ml Drops [Mylicon Drops] 40 mg PO Q6HR PRN #30 ml 09/29/20 [Rx] Follow up Appointment(s)/Referral(s): Analisa Savage MD [STAFF PHYSICIAN] - 10/03/20 (Call to confirm time) Patient Instructions/Handouts: Colectomy (GEN), Laparoscopic Bowel Resection (IP), Colectomy Diet (DC) Activity/Diet/Wound Care/Special Instructions: EXPECT BLOOD IN STOOLS DO NOT REMOVE DRESSING Wear abdominal binder at all times for comfort. No lifting over 10 pounds in 4 weeks until October 29. May shower. No bath tub soaks for two weeks until October 13 Avoid steak, tough meats and seeds such as raspberry seeds. No driving while on narcotics. Use Tylenol scheduled for the next 24-48 hours for best pain relief. Use ice along incisions for today to prevent swelling. Discharge Disposition: HOME SELF-CARE
== END 2020-09-30 15:55 | disposition home or self-care (01) | DRG 331 ==
LOC: 2ORMAIN 05:46 → 4SSUR 12:37
PROVIDERS: ADMIT Surgery Plastic and Reconstructive Surgery; ATTEND Surgery Plastic and Reconstructive Surgery
PROC: 0DTJ4ZZ Resection of Appendix, Percutaneous Endoscopic Approach (ICD-10-PCS; 2020-09-29)
PROC: 0DNW4ZZ Release Peritoneum, Percutaneous Endoscopic Approach (ICD-10-PCS; 2020-09-29)
PROC: 8E0W4CZ Robotic Assisted Procedure of Trunk Region, Percutaneous Endoscopic Approach (ICD-10-PCS; 2020-09-29)
PROC: 0DJD8ZZ Inspection of Lower Intestinal Tract, Via Natural or Artificial Opening Endoscopic (ICD-10-PCS; 2020-09-29)
PROC: 0DTN4ZZ Resection of Sigmoid Colon, Percutaneous Endoscopic Approach (ICD-10-PCS; principal; 2020-09-29 07:30)
DX: K57.32 Diverticulitis of large intestine without perforation or abscess without bleeding (principal); K21.9 Gastro-esophageal reflux disease without esophagitis; J30.2 Other seasonal allergic rhinitis; E03.9 Hypothyroidism, unspecified; F41.9 Anxiety disorder, unspecified; E55.9 Vitamin D deficiency, unspecified; E78.5 Hyperlipidemia, unspecified; K44.9 Diaphragmatic hernia without obstruction or gangrene; Z85.3 Personal history of malignant neoplasm of breast; Z87.11 Personal history of peptic ulcer disease; I25.2 Old myocardial infarction; Z98.84 Bariatric surgery status; M79.7 Fibromyalgia; Z87.891 Personal history of nicotine dependence; Z82.49 Family history of ischemic heart disease and other diseases of the circulatory system; Z80.1 Family history of malignant neoplasm of trachea, bronchus and lung; Z80.8 Family history of malignant neoplasm of other organs or systems; I11.9 Hypertensive heart disease without heart failure; Z87.442 Personal history of urinary calculi; K76.0 Fatty (change of) liver, not elsewhere classified; G89.4 Chronic pain syndrome; M19.90 Unspecified osteoarthritis, unspecified site; K36 Other appendicitis; N73.6 Female pelvic peritoneal adhesions (postinfective); R19.7 Diarrhea, unspecified; Z79.890 Hormone replacement therapy; Z90.711 Acquired absence of uterus with remaining cervical stump; Z79.811 Long term (current) use of aromatase inhibitors; Z79.899 Other long term (current) drug therapy
CPT/HCPCS: 64999; 80048; 80053; 85025; 86850; 86900; 86901; 87635; 88302; 88307

== ENCOUNTER → 2020-10-31 | Outpatient (CLI) | payer MEDICARE, BC ==
[2020-10-31 16:47] LABS: African American GFR (CKD) >90 (>60 ml/min/1.73 sqM); Blood Urea Nitrogen 19 mg/dL (7-17); Non-African American GFR(CKD) >90 (>60 ml/min/1.73 sqM)
--- NOTE | 2020-11-01 07:38 | CT ---
EXAMINATION TYPE: CT abdomen pelvis w con DATE OF EXAM: 10/31/2020 COMPARISON: 09/22/2017 INDICATION: Abdominal pain x1-2 weeks. DLP: 422.4 mGycm, Automated exposure control for dose reduction was used. CONTRAST: 100ml mL of Isovue 300. Study performed without Oral Contrast TECHNIQUE: Axial images were obtained from above the diaphragm to the pubic rami in the axial plane a t 5 mm thick sections. Reconstructed images are reviewed on the computer in the coronal plane. FINDINGS: Limited CT sections are obtained the lung bases. The lung bases are clear. CT ABDOMEN: Postsurgical changes to the stomach are evident. Postsurgical bowel changes are on the left upper michelle drant. Liver: Normal Spleen: Normal Pancreas: Normal Adrenal glands: The adrenal glands are normal. Gallbladder: Normal Kidneys: No masses are evident. No hydronephrosis is present. No cysts are present. Delayed images were obtained through the kidneys, which remain unremarkable. Aorta: Vascular calcification is within the aorta. Inferior vena cava: Normal. CT PELVIS: This study is performed without oral contrast. Surgical changes within the bowel are in the left lowe r posterior pelvis. Fecal debris is within the proximal ascending colon. Distal small bowel loops con tain fluid. Consider ileus. No obvious inflammatory change to suggest acute diverticulitis is evident . Lack of oral contrast however limits bowel evaluation. Appendix: Not identified. Postsurgical change may be present suggesting prior appendectomy. Urinary bladder: Normal. Genitourinary structures: Uterus and ovaries are not identified. Osseous structures: No suspicious lytic or sclerotic lesions. IMPRESSIONS: 1. No suspicious changes to suggest acute diverticulitis. No significant diverticulosis identified. 2. Fluid-filled distal small bowel loops within the lower pelvis may suggest a mild ileus. No obstruc tion is identified. 3. Prior bowel surgery changes.
== END | disposition home or self-care (01) ==
LOC: RADCTMAIN 16:04
PROVIDERS: ATTEND Surgery Plastic and Reconstructive Surgery
DX: R10.9 Unspecified abdominal pain (principal); Z98.890 Other specified postprocedural states
CPT/HCPCS: 82565; 84520; 74177; 36415; Q9967

== ENCOUNTER → 2021-03-07 | Outpatient (CLI) | payer MEDICARE, BC ==
--- NOTE | 2021-03-08 02:52 | MR ---
EXAMINATION TYPE: MR shoulder LT wo con DATE OF EXAM: 03/07/2021 COMPARISON: None HISTORY: Left shoulder pain for 6 months. Multiplanar multiecho imaging of the left shoulder without contrast. There is shoulder joint effusion. There is some narrowing of the glenohumeral joint space. There is f luid around the biceps tendon. Biceps tendon is intact. Glenoid usha appear intact. Subscapularis te ndon is intact. There is increased signal in the supraspinatus tendon over the greater tuberosity humerus. There is n o retraction. There is some patchy increased signal in the left humeral neck on the T2 images. There is mild spurri ng at the AC joint. There is minimal subacromial impingement. IMPRESSION: There is thickening and increased signal in the supraspinatus tendon at the greater tuberosity humeru s and over the top of the humeral head consistent with tendinitis and also full-thickness tear. No re traction. Mild osteoarthritis. There is some edema in the medial aspect of humeral neck that is nonspecific and could relate to bone bruise. No definite fracture line seen. There is corresponding slight increased signal in the inferior glenoid also consistent with a bone bruise. Shoulder joint effusion.
== END | disposition home or self-care (01) ==
LOC: RADMRIMAIN 19:50
PROVIDERS: ATTEND Orthopaedic Surgery
DX: M19.012 Primary osteoarthritis, left shoulder (principal)

== ENCOUNTER 2021-05-04 05:56 | Day surgery (SDC) | payer MEDICARE, BC ==
[2021-04-30 13:02] VITALS: BMI 24.3
--- NOTE | 2021-05-03 11:01 | HP ---
HISTORY AND PHYSICAL CHIEF COMPLAINT: Left shoulder pain. HISTORY OF PRESENT ILLNESS: The patient is a 70-year-old [id number] retired female who presents with progressive left shoulder pain for the past 9 months. She is having pain with overhead use and at night. She has tried medications, an injection, in addition to therapy with minimal relief. She notes daily pain that limits her. PAST MEDICAL HISTORY: Significant for breast cancer, fibromyalgia, hypothyroidism, hypertension and hyperlipidemia. CURRENT MEDICATIONS: Aromasin, atenolol, Cymbalta, hydrocodone, Neurontin, Synthroid, Tenormin, Zantac and Wellbutrin. ALLERGIES: PENICILLIN. FAMILY HISTORY: Significant for heart disease and cancer. SOCIAL HISTORY: Significant for previous heavy tobacco use. REVIEW OF SYSTEMS: Sixteen-point review of systems otherwise reviewed and is noncontributory. PHYSICAL EXAMINATION: On examination, the patient is approximately 5 feet 2 inches, 137 pounds of mesomorphic habitus. HEENT exam is nonfocal. Neck is supple. On examination of her left shoulder, she is tender about the anterior subacromial space. She has moderate subacromial crepitus. Active range of motion: Forward elevation 140 degrees, external rotation with the arm at side 50 degrees, internal rotation to T12. Motor strength 5 minus over 5 for external rotation with arm at side, 4+ over 5 for abduction. Impingement test, Neer test and Speed test are positive. Her distal neurovascular exam appears intact in the right upper extremity. MRI report left shoulder 03/07/2021 shows evidence of a full-thickness tear of the rotator cuff involving the anterior aspect of the supraspinatus. IMPRESSION: Left shoulder impingement with symptomatic rotator cuff tear. RECOMMENDATIONS: I talked to the patient at length regarding her condition along with treatment options. At this point she remains quite symptomatic despite previous conservative measures. After thorough discussion, she opts to proceed with surgery. We will plan to proceed with arthroscopic evaluation of her left shoulder with probable subacromial decompression and rotator cuff debridement versus repair in addition to possible biceps tenotomy. We will likely perform that as an outpatient procedure. Risks and benefits were discussed at length in layman's terms. The patient did undergo preoperative cardiac evaluation for a chronic bundle branch block. MMODL / IJN: [id number] /
[~2021-05-04 05:56] MED LIST changes: -CLINDAMYCIN 900 MG in DEXTROSE 5% IN WATER 50 ML IVPB PRN; -GENTAMICIN 250 MG in SODIUM CHLORIDE 0.9% 100 ML IVPB PRN; -HEPARIN SODIUM,PORCINE/PF 5,000 UNIT/0.5 ML SYRINGE SQ PRN; +VANCOMYCIN 1,000 MG in SODIUM CHLORIDE 0.9% 250 ML IVPB PRN
[2021-05-04] MEDS ORDERED: ONDANSETRON 4 MG/2 ML VIAL IVP ONE (05:57)
[2021-05-04] MEDS ORDERED: LIDOCAINE 1% (10MG/ML) FOR IV START INTRADERMA PRN (05:57)
[2021-05-04] MEDS ORDERED: LACTATED RINGERS 1,000 ML IV SCH (05:57)
[2021-05-04] MEDS ORDERED: DEXAMETHASONE SOD PHOSPHATE 4 MG/ML 1 ML VIAL IV ONE (05:57)
[2021-05-04] MEDS ORDERED: MIDAZOLAM 2 MG/2 ML VIAL IV PRN (05:57)
[2021-05-04] MEDS ORDERED: HYDROmorphone 0.5 MG/0.5 ML SYRINGE IVP PRN (07:00)
[2021-05-04] MEDS ORDERED: ROPIVACAINE 5 MG/ML 30 ML VIAL ONE (07:39)
[2021-05-04] MEDS ORDERED: NEOSTIGMINE 1 MG/ML 10 ML VIAL ONE (07:39)
[2021-05-04] MEDS ORDERED: LIDOCAINE 1% INJ 10MG/ML (20 ML MDV) ONE (07:39)
[2021-05-04] MEDS ORDERED: ePHEDrine 50 MG/ML 1 ML AMP ONE (07:39)
[2021-05-04] MEDS ORDERED: GLYCOPYRROLATE 0.2 MG/ML 2 ML VIAL ONE (07:39)
[2021-05-04] MEDS ORDERED: PHENYLEPHRINE-0.9% NACL SYG 1,000 MCG/10 ML SYRINGE ONE (07:39)
[2021-05-04] MEDS ORDERED: ROCURONIUM 10 MG/ML (5 ML VIAL) IV ONE (07:39)
[2021-05-04] MEDS ORDERED: PROPOFOL 10 MG/ML 20 ML VIAL IV ONE (07:39)
[2021-05-04] MEDS ORDERED: DEXAMETHASONE SOD PHOSPHATE 4 MG/ML 1 ML VIAL ONE (07:39)
[2021-05-04] MEDS ORDERED: SUCCINYLCHOLINE CHLORIDE 100 MG/5 ML SYR IV ONE (07:39)
[2021-05-04] MEDS ORDERED: EPINEPHrine (PF) 1 ML in SODIUM CHLORIDE 0.9% IRRIGATIO 3,000 ML IRRIGATION ONE ×8 (07:49)
[2021-05-04 09:23] VITALS: TEMP 96.8
--- NOTE | 2021-05-04 09:23 | P.OP ---
Date of Procedure: 05/04/21 Preoperative Diagnosis: Left shoulder impingement/rotator cuff tear Postoperative Diagnosis: Same in addition to high-grade partial-thickness tear long head of the bicepsintra-articular portion Procedure(s) Performed: Left shoulder arthroscopic subacromial decompression/biceps tenotomy/rotator cuff repair Implants: Arthrex 4.75 mm swivel lock anchor times one, 5.5 mm swivel lock anchor 1 Anesthesia: ZINAA, regional Surgeon: Wellington Quinteros Technical Aid #1: Tarun Collado Estimated Blood Loss (ml): 10 Pathology: none sent Condition: stable Disposition: PACU Indications for Procedure: The patient's a 70-year-old female who presents with progressive left shoulder pain despite conservative measures. A discussion of the risks and benefits of operative intervention versus continued conservative measures was made with patient. She opted to proceed with surgery. Operative risks to include infection, neurovascular injury, development of blood clots, possible tendon rerupture, possible postoperative stiffness and need for subsequent procedures was discussed. Informed consent was obtained. Operative Findings: As below Description of Procedure: The patient was brought to the operating room, and after induction of general anesthesia was placed in a beachchair position. A preoperative interscalene block was placed for postoperative analgesia. I examined the left shoulder. There was no gross block to passive motion or gross glenohumeral instability. The left upper extremity was prepped and draped in normal fashion. The bony outlines the acromion, distal clavicle, and coracoid process were outlined with a skin marker. The glenohumeral joint was inflated with 50 mL of saline utilizing a spinal needle from posterior approach. A posterior portal was made through a 5 mm skin incision 1 cm medial and inferior to the posterior lateral border time. A blunt trocar was used to easily into the joint. Diagnostic arthroscopy was performed. An anterior portal was made just lateral to the coracoid process entering the joint above the subscapularis tendon. The subscapularis tendon appeared to be intact. Anterior labrum was intact. The inferior recess was inspected. The posterior labrum was intact. There was a high-grade partial-thickness tear of the long head of the biceps involving interarticular portion. It was elected to proceed with release at this point. This was released from the superior labrum with electrocautery and was allowed to retract to the bicipital groove. On inspection the rotator cuff, a full- thickness tear involving the anterior aspect the supraspinatus was noted. The arthroscope was placed into the subacromial space. A lateral portal was made 2 centimeters inferior to the anterior lateral border of the acromion. The ro tator cuff was then mobilized with a traction suture. This was then easily brought back to the greater tuberosity. The soft tissue on the undersurface of the acromion was debrided with a motorized shaver and electrocautery clearly defining the anterior medial and lateral borders as well as the distal clavicle. An anterior inferior acromioplasty was performed with a motorized jaz starting anterolateral, then extending this posteriorly, then extending this medially. I converted to a flat acromion and this was verified in the posterior and lateral viewing portals. The greater tuberosity was lightly decorticating with a shaver down to a bleeding bony surface. An accessory superior lateral portal was made just off the lateral edge of the acromion for anchor placement. A 4.75 mm swivel lock anchor preloaded with fiber tape was then placed just off the articular surface with the appropriate starting awl. Good purchase was obtained. These fiber tapes were then passed the rotator cuff with a scorpion suture passer. A fiber link was also placed on the lateral edge of the rotator cuff. A lateral anchor was placed utilizing a 5.5 mm swivel lock anchor. Final arthroscopic view showed adequate compression at the footprint. The arthroscope was then removed. The portals were closed with simple 3-0 nylon sutures. A sterile dressing was applied in addition to a sling. The patient was then awoken from general anesthesia and transferred to recovery room in good condition. Blood loss was estimated at 10 mL. No complications were incurred. Sponge and needle counts were correct in the case. Tarun CARRILLO assisted and the major components of the case to include arm positioning, anchor placement, and rotator cuff repair.
[2021-05-04 10:31] VITALS: RESP 16
[2021-05-04] MEDS ORDERED: HYDROcodone/APAP 7.5-325MG 1 EACH TAB ONE (11:00)
[2021-05-04] MEDS ORDERED: HYDROcodone/APAP 7.5-325MG 1 EACH TAB PO ONE (11:04)
[2021-05-04 11:10] VITALS: PULSE 64
[2021-05-04 11:44] VITALS: BP 112/60
--- NOTE | 2021-05-05 16:11 | P.ANPRN ---
Procedure Note - Anesthesia - Nerve Block Performed Left Interscalene Single Time Out Performed: Yes Date of Procedure: 05/04/21 Procedure Start Time: : Procedure Stop Time: 07:06 Location of Patient: PreOp Indication: Acute Post-Operative Pain, Requested by Surgeon Sedation Type: Sedate with meaningful contact maintained Preparation: Sterile Prep Position: Supine Needle Types: Pajunk Needle Gauge: 21 Ultrasound used to visualize needle placement: Yes Ultrasound used to observe medication spread: Yes Blood Aspirated: No Pain Paresthesia on Injection Noted: No Resistance on Injection: Normal Image Stored and Saved: Yes Events: Uneventful and Well Tolerated (ropi .5% 20cc plus dexamethasone 4mg)
== END 2021-05-04 11:45 | disposition home or self-care (01) ==
LOC: OR 05:56
PROVIDERS: ATTEND Orthopaedic Surgery
DX: M25.812 Other specified joint disorders, left shoulder (principal); M75.102 Unspecified rotator cuff tear or rupture of left shoulder, not specified as traumatic; S46.112A Strain of muscle, fascia and tendon of long head of biceps, left arm, initial encounter; X58.XXXA Exposure to other specified factors, initial encounter; M79.7 Fibromyalgia; E03.9 Hypothyroidism, unspecified; I10 Essential (primary) hypertension; E78.5 Hyperlipidemia, unspecified; Z85.3 Personal history of malignant neoplasm of breast; Z87.891 Personal history of nicotine dependence; I25.10 Atherosclerotic heart disease of native coronary artery without angina pectoris; I25.2 Old myocardial infarction; Z82.49 Family history of ischemic heart disease and other diseases of the circulatory system; Z90.710 Acquired absence of both cervix and uterus; Z90.49 Acquired absence of other specified parts of digestive tract; Z98.890 Other specified postprocedural states; Z79.811 Long term (current) use of aromatase inhibitors; Z79.890 Hormone replacement therapy; Z79.891 Long term (current) use of opiate analgesic; Z79.899 Other long term (current) drug therapy; Z88.0 Allergy status to penicillin; Z91.09 Other allergy status, other than to drugs and biological substances
CPT/HCPCS: 64415; 76942; 29826; 29827; C1713 ×3; C1894; J2250; J3370; J1100; J2710; J2405; J0171; J2001; J2795; J2370; J0330; J2704

== ENCOUNTER 2022-03-11 08:31 | Day surgery (SDC) | payer MEDICARE, BC ==
--- NOTE | 2022-03-11 07:24 | P.GSHP ---
History of Present Illness H&P Date: 03/11/22 CHIEF COMPLAINT: GERD HISTORY OF PRESENT ILLNESS: The patient is a 71-year-old female who presents reports gastroesophageal reflux disease. Upper endoscopy was offered for further evaluation and management. PAST MEDICAL HISTORY: Please see list. PAST SURGICAL HISTORY: Please see list. MEDICATIONS: Please see list. ALLERGIES: Please see list. SOCIAL HISTORY: No illicit drug use FAMILY HISTORY: No reports of Crohn disease or ulcerative colitis. REVIEW OF ORGAN SYSTEMS: CONSTITUTIONAL: No reports of fevers or chills. GI: Denies any blood in stools or constipation. PHYSICAL EXAM: VITAL SIGNS: Stable GENERAL: Well-developed and pleasant in no acute distress. HEENT: No scleral icterus. Extraocular movements grossly intact. Moist buccal mucosa. NECK: Supple without lymphadenopathy. CHEST: Unlabored respirations. Equal bilateral excursions. CARDIOVASCULAR: Regular rate and rhythm. Distal 2+ pulses. ABDOMEN: Soft, nondistended. MUSCULOSKELETAL: No clubbing, cyanosis, or edema. ASSESSMENT: 1. Gastroesophageal reflux disease PLAN: 1. Recommend proceeding with an upper endoscopy Past Medical History Past Medical History: Cancer, Eye Disorder, Fibromyalgia, Hyperlipidemia, Liver Disease, Myocardial Infarction (NM), Osteoarthritis (OA), Skin Disorder, Thyroid Disorder Additional Past Medical History / Comment(s): BREAST CA, IRREGULAR HEARTBEAT, MACULAR DEGENERATION, Hx KIDNEY STONE, hx heart murmer and palpitations, hx IBS, fatty liver, eczema, urinary leakage, silent NM, Ryan CTS. takes tenormin to keep heart rate from beating too fast. trouble swallowing as before, pill gets stuck. memory issues. fluid in left ear. Last Myocardial Infarction Date:: 2009 approx History of Any Multi-Drug Resistant Organisms: None Reported Past Surgical History: Appendectomy, Bariatric Surgery, Breast Surgery, Heart Catheterization, Hernia Repair, Hysterectomy, Orthopedic Surgery, Tubal Ligation Additional Past Surgical History / Comment(s): LT BREAST LUMPECTOMY w/ LYMPH NODE REMOVED, THYROID NODULE removed, LYSIS OF ADHESIONS, surgery for fx rt foot , gastric bypass and repair of hiatal hernia 11-21-16, EGD, COLONOSCOPY, ESOPHAGUS STRETCHED JUNE 2017, BOWEL RESECTION 08/2020. umbilical hernia repair as well as hiatal. rt shoulder rotator cuff . Past Anesthesia/Blood Transfusion Reactions: No Reported Reaction, Motion Sickness Additional Past Anesthesia/Blood Transfusion Reaction / Comment(s): no blood transfusions Smoking Status: Former smoker - Past Family History Father Family Medical History: Cancer, Deep Vein Thrombosis (DVT), Myocardial Infarction (NM) Additional Family Medical History / Comment(s): CA lung Mother Family Medical History: Cancer Additional Family Medical History / Comment(s): SKIN CANCER, brain bleed. Brother(s) Family Medical History: Cancer, Deep Vein Thrombosis (DVT) Additional Family Medical History / Comment(s): prostate. other brother ? NM . Other brother open heart Medications and Allergies Home Medications Medication Instructions Recorded Confirmed Type Levothyroxine Sodium [Synthroid] 75 mcg PO DAILY 03/25/16 03/07/22 History atenoloL [Tenormin] 25 mg PO DAILY 01/06/17 03/07/22 History DULoxetine HCL [Cymbalta] 60 mg PO BID 09/11/17 03/07/22 History Multivitamins, Thera [Multivitamin 1 tab PO DAILY 01/16/18 03/07/22 History (formulary)] buPROPion XL [Wellbutrin XL] 150 mg PO DAILY 01/16/18 03/07/22 History tiZANidine HCL [Zanaflex] 4 mg PO TID PRN 01/16/18 03/07/22 History Gabapentin [Neurontin] 400 mg PO TID 12/23/18 03/07/22 History ALPRAZolam [Xanax] 0.5 mg PO BID PRN 08/07/20 03/07/22 History HYDROcodone/APAP 7.5-325MG [[place] 1 tab PO BID PRN 08/07/20 03/07/22 History 7.5-325] Magnesium 250 mg PO DAILY 08/07/20 03/07/22 History Sucralfate [Carafate] 1 gm PO BID PRN 08/07/20 03/07/22 History Cholecalciferol (Vitamin D3) 125 mcg PO DAILY 04/30/21 03/07/22 History [Vitamin D3 (125 MCG = 5,000 IU)] Garlique 1 cap PO DAILY 04/30/21 03/07/22 History Ginseng 100 mg PO DAILY 04/30/21 03/07/22 History Milk Thistle 150 mg PO DAILY 04/30/21 03/07/22 History Aster Colon Health 1 tab PO DAILY 04/30/21 03/07/22 History Pravastatin Sodium [Pravachol] 80 mg PO HS 04/30/21 03/07/22 History Prevagen 1 tab PO DAILY 04/30/21 03/07/22 History Zinc 50 mg PO DAILY 04/30/21 03/07/22 History Acetaminophen [Tylenol] 650 mg PO Q8H PRN 03/07/22 03/07/22 History Unk Memory Supplement 1 tab PO DAILY 03/07/22 03/07/22 History Unk Xyzal 1 tab PO DAILY 03/07/22 03/07/22 History Allergies Allergy/AdvReac Type Severity Reaction Status Date / Time Penicillins Allergy Dyspnea Verified 03/07/22 12:33 grass pollen-perennial rye, AdvReac Itching Verified 03/07/22 12:33 standar house dust AdvReac Itching Verified 03/07/22 12:33
[~2022-03-11 08:31] MED LIST changes: +LACTATED RINGERS 1,000 ML IV SCH; +LIDOCAINE 1% (10MG/ML) FOR IV START INTRADERMA PRN; -VANCOMYCIN 1,000 MG in SODIUM CHLORIDE 0.9% 250 ML IVPB PRN
[2022-03-11] MEDS ORDERED: LACTATED RINGERS 1,000 ML IV ONE (08:47)
[2022-03-11 08:49] VITALS: RESP 16; TEMP 97.5
[2022-03-11] MEDS ORDERED: LIDOCAINE 2% INJ 20 MG/ML (2 ML VIAL) ONE (09:24)
[2022-03-11] MEDS ORDERED: PROPOFOL 10 MG/ML 20 ML VIAL IV ONE (09:24)
--- NOTE | 2022-03-11 09:47 | P.PCN ---
Date of Procedure: 03/11/22 Description of Procedure: PREOPERATIVE DIAGNOSIS: Dysphagia. Nausea with vomiting. POSTOPERATIVE DIAGNOSIS: Dysphagia. 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 INDICATIONS: The patient is a 71-year-old female who presents with a history of dysphagia, including nausea and vomiting. Benefits and risks of the procedure were described. Informed consent was obtained. DESCRIPTION: The patient was brought into the endoscopy suite and laid in the left lateral decubitus position. After a timeout was confirmed, the procedure was initiated. An Olympus gastroscope was passed along the posterior oropharynx down to the distal esophagus where the squamocolumnar junction was unremarkable. Moderate tertiary contractions consistent with presbyesophagus was found. Her mouth was small requiring digital retraction. The gastric pouch was entered. A gastrojejunal stricture of 15 mm was found as the adult gastroscope was 9.5 mm in size. Attention was brought to the upper esophageal stenosis. The bite block was removed and mouth was opened with fingers. A rigid dilator, 51 [place] was placed over a guidewire to 45 cm from the incisors and left for 2 minutes after exchanging the scope. A [employer] balloon dilator was placed through the scope. The scope was reentered for balloon dilation of the gastrojejunal anastomosis. Final insufflation from 15 to 20 mm was performed with a total of 2 minutes. The scope was advanced up to 60 cm from the incisors into the Raad limb. The mucosa of the gastrojejunal anastomosis was intact. No chronic gastrojejunal marginal ulcer was encountered. No full-thickness injury was encountered. The GI tract was desufflated. The patient tolerated the procedure well. FINDINGS: Squamocolumnar junction unremarkable at 37 cm. Stricture of approximately 15 mm encountered. Moderate to severe tertiary contractions for presbyesophagus Rigid dilation of upper esophageal sphincter, 51-[place] No chronic gastrojejunal ulceration encountered. Successful balloon dilatation to 20 mm. Gastric pouch 4 cm RECOMMENDATIONS: Recommend blenderized diet due to combined presbyesophagus and esophageal stenosis Upper endoscopy as needed. Plan - Discharge Summary Discharge Rx Participant: No New Discharge Prescriptions: Continue Levothyroxine Sodium [Synthroid] 75 mcg PO DAILY atenoloL [Tenormin] 25 mg PO DAILY DULoxetine HCL [Cymbalta] 60 mg PO BID buPROPion XL [Wellbutrin XL] 150 mg PO DAILY Multivitamins, Thera [Multivitamin (formulary)] 1 tab PO DAILY tiZANidine HCL [Zanaflex] 4 mg PO TID PRN PRN Reason: muscle spasms Gabapentin [Neurontin] 400 mg PO TID Sucralfate [Carafate] 1 gm PO BID PRN PRN Reason: stomach upset Magnesium 250 mg PO DAILY HYDROcodone/APAP 7.5-325MG [[place] 7.5-325] 1 tab PO BID PRN PRN Reason: Pain ALPRAZolam [Xanax] 0.5 mg PO BID PRN PRN Reason: Anxiety Pravastatin Sodium [Pravachol] 80 mg PO HS Garlique 1 cap PO DAILY Unk Memory Supplement 1 tab PO DAILY Cholecalciferol (Vitamin D3) [Vitamin D3 (125 MCG = 5,000 IU)] 125 mcg PO DAILY Zinc 50 mg PO DAILY Prevagen 1 tab PO DAILY SolvAxis Health 1 tab PO DAILY Milk Thistle 150 mg PO DAILY Ginseng 100 mg PO DAILY Unk Xyzal 1 tab PO DAILY Acetaminophen [Tylenol] 650 mg PO Q8H PRN PRN Reason: Pain Discharge Medication List Levothyroxine Sodium [Synthroid] 75 mcg PO DAILY 03/25/16 [History] atenoloL [Tenormin] 25 mg PO DAILY 01/06/17 [History] DULoxetine HCL [Cymbalta] 60 mg PO BID 09/11/17 [History] Multivitamins, Thera [Multivitamin (formulary)] 1 tab PO DAILY 01/16/18 [History] buPROPion XL [Wellbutrin XL] 150 mg PO DAILY 01/16/18 [History] tiZANidine HCL [Zanaflex] 4 mg PO TID PRN 01/16/18 [History] Gabapentin [Neurontin] 400 mg PO TID 12/23/18 [History] ALPRAZolam [Xanax] 0.5 mg PO BID PRN 08/07/20 [History] HYDROcodone/APAP 7.5-325MG [[place] 7.5-325] 1 tab PO BID PRN 08/07/20 [History] Magnesium 250 mg PO DAILY 08/07/20 [History] Sucralfate [Carafate] 1 gm PO BID PRN 08/07/20 [History] Cholecalciferol (Vitamin D3) [Vitamin D3 (125 MCG = 5,000 IU)] 125 mcg PO DAILY 04/30/21 [History] Garlique 1 cap PO DAILY 04/30/21 [History] Ginseng 100 mg PO DAILY 04/30/21 [History] Milk Thistle 150 mg PO DAILY 04/30/21 [History] Aster Colon Health 1 tab PO DAILY 04/30/21 [History] Pravastatin Sodium [Pravachol] 80 mg PO HS 04/30/21 [History] Prevagen 1 tab PO DAILY 04/30/21 [History] Zinc 50 mg PO DAILY 04/30/21 [History] Acetaminophen [Tylenol] 650 mg PO Q8H PRN 03/07/22 [History] Unk Memory Supplement 1 tab PO DAILY 03/07/22 [History] Unk Xyzal 1 tab PO DAILY 03/07/22 [History] Follow up Appointment(s)/Referral(s): Analisa Savage MD [STAFF PHYSICIAN] - 03/26/22 Patient Instructions/Handouts: Esophageal Dilation (GEN) Activity/Diet/Wound Care/Special Instructions: Diet as tolerated. Recommend warm beverages prior to eating Discharge Disposition: HOME SELF-CARE
[2022-03-11 10:13] VITALS: BP 127/66; PULSE 53
== END 2022-03-11 10:42 | disposition home or self-care (01) ==
LOC: ORWHC2ENDO 08:31
PROVIDERS: ATTEND Surgery Plastic and Reconstructive Surgery
DX: R13.10 Dysphagia, unspecified (principal); K31.2 Hourglass stricture and stenosis of stomach; K22.2 Esophageal obstruction; K22.89 Other specified disease of esophagus; K21.9 Gastro-esophageal reflux disease without esophagitis; K58.9 Irritable bowel syndrome, unspecified; K76.0 Fatty (change of) liver, not elsewhere classified; M19.90 Unspecified osteoarthritis, unspecified site
CPT/HCPCS: 43245; 43239; 43248; J2704; J2001; C1726; 43249

== ENCOUNTER 2022-04-25 13:42 | Day surgery (SDC) | payer MEDICARE, BC ==
--- NOTE | 2022-04-25 12:01 | P.GSHP ---
History of Present Illness H&P Date: 04/25/22 CHIEF COMPLAINT: Cholecystitis HISTORY OF PRESENT ILLNESS: The patient is a 71-year-old female who presents with history of epigastric including right upper quadrant abdominal pain. She underwent diagnostic studies for her gallbladder. Separately her clinical picture was consistent with cholecystitis. Now she presents for surgical intervention. PAST MEDICAL HISTORY: Please see list PAST SURGICAL HISTORY: Please see list MEDICATIONS: Please see list ALLERGIES: Please see list SOCIAL HISTORY: Please see list FAMILY HISTORY: Please see list REVIEW OF ORGAN SYSTEMS: CONSTITUTIONAL: No reports of fevers or chills. HEENT: Denies any troubles with the vision or hearing. ENDOCRINE: No reports of hypothyroidism. No diabetes. RESPIRATORY: No recent pneumonias. CARDIOVASCULAR: Denies chest pain or palpitations GI: No blood in stools or constipation. MUSCULOSKELETAL: Has occasional joint pain including back pain. NEURO: No seizure disorders or headaches. No recent stroke. PSYCH: No depression or suicidal ideation. GENITOURINARY: No active blood in urine. No urinary hesitancy. HEMATOLOGIC: No personal or family history of DVTs or pulmonary emboli. SKIN: No skin cancer. PHYSICAL EXAM: VITAL SIGNS: Afebrile vital signs stable GENERAL: Well-developed pleasant in no acute distress. HEENT: No scleral icterus. Extraocular movements grossly intact. Moist buccal mucosa. NECK: Supple without lymphadenopathy. CHEST: Unlabored respirations. Equal bilateral excursions. CARDIOVASCULAR: Regular rate regular rhythm rhythm. Distal 2+ pulses. ABDOMEN: Soft, nondistended. Tender along the epigastrium and right upper quadrant. MUSCULOSKELETAL: No clubbing, cyanosis, or edema. NEURO: Cranial nerves II to XII within normal limits. No focal or lateralizing signs. PSYCH: Alert and oriented to person, place and time. SKIN: Well-perfused good skin turgor. ASSESSMENT: 1. Epigastric and right upper quadrant abdominal pain 2. Chronic cholecystitis 3. Symptomatic gallstones. PLAN: 1. Will need a robotic cholecystectomy possible open. Benefits and risks were described. 2. Heparin for DVT prophylaxis 5000 units. 3. Antibiotic prophylaxis. 4. CBC and CMP on day of procedure 5. Non-narcotic pre and post op pain management reviewed. 6. Indocyanine green for biliary imaging. Past Medical History Past Medical History: Cancer, Eye Disorder, Fibromyalgia, Hyperlipidemia, Liver Disease, Memory Impairment, Myocardial Infarction ([place]), Osteoarthritis (OA), Skin Disorder, Thyroid Disorder Additional Past Medical History / Comment(s): BREAST CA, IRREGULAR HEARTBEAT, MACULAR DEGENERATION, Hx KIDNEY STONE, hx heart murmur and palpitations, hx IBS, fatty liver, eczema-spot on right arm, left thigh, urinary frequency, silent [place], Ryan CTS. takes tenormin for heart rate. memory issues. Last Myocardial Infarction Date:: 2009 approx History of Any Multi-Drug Resistant Organisms: None Reported Past Surgical History: Appendectomy, Bariatric Surgery, Bowel Resection, Breast Surgery, Heart Catheterization, Hernia Repair, Hysterectomy, Orthopedic Surgery, Tubal Ligation Additional Past Surgical History / Comment(s): LT BREAST LUMPECTOMY w/ LYMPH NODE REMOVED, THYROID NODULE removed, LYSIS OF ADHESIONS, surgery for fx rt foot , gastric bypass and repair of hiatal hernia 11-21-16, EGD, COLONOSCOPY, ESOPHAGUS STRETCHED JUNE 2017, BOWEL RESECTION 08/2020. umbilical hernia repair as well as hiatal. rt shoulder rotator cuff . Past Anesthesia/Blood Transfusion Reactions: No Reported Reaction, Motion Sickness Additional Past Anesthesia/Blood Transfusion Reaction / Comment(s): no blood transfusions Smoking Status: Former smoker - Past Family History Father Family Medical History: Cancer, Deep Vein Thrombosis (DVT), Myocardial Infarction ([place]) Additional Family Medical History / Comment(s): [place] lung Mother Family Medical History: Cancer Additional Family Medical History / Comment(s): SKIN CANCER, brain bleed. Brother(s) Family Medical History: Cancer, Deep Vein Thrombosis (DVT) Additional Family Medical History / Comment(s): prostate. other brother ? [place] . Other brother open heart Medications and Allergies Home Medications Medication Instructions Recorded Confirmed Type Levothyroxine Sodium [Synthroid] 75 mcg PO DAILY 03/25/16 04/24/22 History atenoloL [Tenormin] 25 mg PO DAILY 01/06/17 04/24/22 History DULoxetine HCL [Cymbalta] 60 mg PO BID 09/11/17 04/24/22 History Multivitamins, Thera [Multivitamin 1 tab PO DAILY 01/16/18 04/24/22 History (formulary)] buPROPion XL [Wellbutrin XL] 150 mg PO DAILY 01/16/18 04/24/22 History tiZANidine HCL [Zanaflex] 4 mg PO TID PRN 01/16/18 04/24/22 History Gabapentin [Neurontin] 400 mg PO TID 12/23/18 04/24/22 History ALPRAZolam [Xanax] 0.5 mg PO BID PRN 08/07/20 04/24/22 History Magnesium 250 mg PO DAILY 08/07/20 04/24/22 History Cholecalciferol (Vitamin D3) 125 mcg PO DAILY 04/30/21 04/24/22 History [Vitamin D3 (125 MCG = 5,000 IU)] Ginseng 100 mg PO DAILY 04/30/21 04/24/22 History Milk Thistle 175 mg PO DAILY 04/30/21 04/24/22 History Pravastatin Sodium [Pravachol] 40 mg PO HS 04/30/21 04/24/22 History Zinc 50 mg PO DAILY 04/30/21 04/24/22 History Acetaminophen [Tylenol] 650 mg PO Q8H PRN 03/07/22 04/24/22 History Ascorbic Acid [Vitamin C] 1,000 mg PO DAILY 04/24/22 04/24/22 History Calcium Carbonate [Calcium] 600 mg PO DAILY 04/24/22 04/24/22 History Cetirizine HCl [Zyrtec] 10 mg PO DAILY 04/24/22 04/24/22 History Ginkgo Biloba [place] Extract [Ginkgo] 60 mg PO DAILY 04/24/22 04/24/22 History Hydrocodone/Acetaminophen 1.5 tab PO Q8H PRN 04/24/22 04/24/22 History [Hydrocodon-Acetaminophen 5-325] L.acidoph,Paracasei, B.lactis 1 each PO DAILY 04/24/22 04/24/22 History [Probiotic] Turmeric Root Extract [Turmeric 500 mg PO DAILY 04/24/22 04/24/22 History Curcumin] Ubidecarenone [Co Q-10] 100 mg PO DAILY 04/24/22 04/24/22 History Vitamin B Complex 1 each PO DAILY 04/24/22 04/24/22 History Allergies Allergy/AdvReac Type Severity Reaction Status Date / Time Penicillins Allergy Dyspnea Verified 04/24/22 10:50 grass pollen-perennial rye, AdvReac Itching Verified 04/24/22 10:50 standar house dust AdvReac Itching Verified 04/24/22 10:50
[~2022-04-25 13:42] MED LIST changes: +ACETAMINOPHEN TAB 500 MG TAB PO STA; +HEPARIN SODIUM,PORCINE/PF 5,000 UNIT/0.5 ML SYRINGE SQ PRN; +INDOCYANINE GREEN 25 MG VIAL IV STA; -LACTATED RINGERS 1,000 ML IV SCH; -LIDOCAINE 1% (10MG/ML) FOR IV START INTRADERMA PRN; +SCOPOLAMINE 1 MG/72 HR PATCH TRANSDERM STA
[2022-04-25] MEDS ORDERED: DEXAMETHASONE SOD PHOSPHATE 4 MG/ML 1 ML VIAL IV ONE (13:53)
[2022-04-25] MEDS ORDERED: LACTATED RINGERS 1,000 ML IV SCH (13:53)
[2022-04-25] MEDS ORDERED: ONDANSETRON 4 MG/2 ML VIAL IVP ONE (13:53)
[2022-04-25] MEDS ORDERED: HYDROmorphone 0.5 MG/0.5 ML SYRINGE IVP PRN (13:53)
[2022-04-25 13:57] VITALS: RESP 16
[2022-04-25 14:35] LABS: HCT 38.1 % (34.0-46.0); HGB 12.8 gm/dL (11.4-16.0); MCH 32.2 pg (25.0-35.0); MCHC 33.7 g/dL (31.0-37.0); MCV 95.7 fL (80.0-100.0); Mean Platelet Volume 8.5; Platelet Count 205 k/uL (150-450); RBC 3.98 m/uL (3.80-5.40); RDW 12.9 % (11.5-15.5); WBC 3.7 k/uL (3.8-10.6)
[2022-04-25 14:47] LABS: Lymphocytes # (M) 0.74 k/uL (1.0-4.8); Monocytes # (M) 0.22 k/uL (0-1.0); Neutrophils # (M) 2.74 k/uL (1.3-7.7); Neutrophils % (M) 74 %; Nucleated Red Blood Cells 0 /100 WBC (0-0); Total Cells Counted 100
[2022-04-25 15:14] LABS: ALT 35 U/L (4-34); AST 37 U/L (14-36); African American GFR (CKD) >90 (>60 ml/min/1.73 sqM); Albumin 3.9 g/dL (3.5-5.0); Alkaline Phosphatase 56 U/L (38-126); Anion Gap 2 mmol/L; Blood Urea Nitrogen 17 mg/dL (7-17); Calcium 8.7 mg/dL (8.4-10.2); Carbon Dioxide 33 mmol/L (22-30); Chloride 105 mmol/L (98-107); Glucose 90 mg/dL (74-99); Non-African American GFR(CKD) >90 (>60 ml/min/1.73 sqM); Potassium 4.5 mmol/L (3.5-5.1); Sodium 140 mmol/L (137-145); Total Bilirubin 0.5 mg/dL (0.2-1.3); Total Protein 6.3 g/dL (6.3-8.2)
[2022-04-25] MEDS ORDERED: MIDAZOLAM 2 MG/2 ML VIAL ONE (16:00)
[2022-04-25] MEDS ORDERED: LIDOCAINE 2% INJ 20 MG/ML (2 ML VIAL) ONE (16:00)
[2022-04-25] MEDS ORDERED: ROCURONIUM 10 MG/ML (5 ML VIAL) IV ONE (16:00)
[2022-04-25] MEDS ORDERED: SUCCINYLCHOLINE CHLORIDE 200 MG/10 ML VIAL IV ONE (16:00)
[2022-04-25] MEDS ORDERED: GLYCOPYRROLATE 0.2 MG/ML 2 ML VIAL ONE (16:00)
[2022-04-25] MEDS ORDERED: ePHEDrine 50 MG/ML 1 ML VIAL ONE (16:00)
[2022-04-25] MEDS ORDERED: NEOSTIGMINE 1 MG/ML 10 ML VIAL ONE (16:00)
[2022-04-25] MEDS ORDERED: fentaNYL (PF) 50 MCG/ML 2 ML AMP ONE (16:00)
[2022-04-25] MEDS ORDERED: PROPOFOL 10 MG/ML 20 ML VIAL IV ONE (16:00)
[2022-04-25] MEDS ORDERED: BUPIVACAIN-EPI 0.25%-1:200,000 30 ML VIAL SQ ONE (16:29)
[2022-04-25] MEDS ORDERED: LACTATED RINGERS 1,000 ML IV ONE (17:10)
[2022-04-25 17:27] VITALS: TEMP 97.3
--- NOTE | 2022-04-25 17:42 | P.OP ---
Date of Procedure: 04/25/22 Description of Procedure: SURGEON: ANALSIA SAVAGE MD PREOPERATIVE DIAGNOSES: 1. Chronic cholecystitis 2. Right upper quadrant abdominal pain 3. Seasonal allergies. 4. Hypertensive heart disease 5. Hypothyroidism. 6. Anxiety. 7. Osteoarthritis. 8. Vitamin D deficiency. 9. Hyperlipidemia. 10. Hiatal hernia 11. Previous history of breast cancer. 12. Kidney stones. 13. Stomach ulcers 14. Fatty liver disease 15. Previous history of myocardial infarction. 16. Chronic pain syndrome 17. Gastroesophageal reflux disease POSTOPERATIVE DIAGNOSES: 1. Chronic cholecystitis 2. Right upper quadrant abdominal pain 3. Seasonal allergies. 4. Hypertensive heart disease 5. Hypothyroidism. 6. Anxiety. 7. Osteoarthritis. 8. Vitamin D deficiency. 9. Hyperlipidemia. 10. Hiatal hernia 11. Previous history of breast cancer. 12. Kidney stones. 13. Stomach ulcers 14. Fatty liver disease 15. Previous history of myocardial infarction. 16. Chronic pain syndrome 17. Gastroesophageal reflux disease 18. Right upper quadrant peritoneal adhesions OPERATION: 1. Robotic-assisted da Natalia Xi laparoscopic lysis of adhesions, over 50% 1. Robotic-assisted da Natalia Xi laparoscopic cholecystectomy, multiport with FIREFLY ESTIMATED BLOOD LOSS: 5 mL. SPECIMENS REMOVED: Gallbladder. COMPLICATIONS: None. OPERATIVE FINDINGS: 1. Moderate scarring over entire gallbladder with peritoneal adhesions, pericholecystic with features of chronic cholecystitis INDICATIONS: The patient is a 71-year-old female who presents with symptomatic gallstones. Robotic assisted laparoscopic approach was described. Benefits and risks of the procedure including but not limited to bleeding, infection, injury to the biliary tree was described. Informed consent was obtained. DESCRIPTION OF PROCEDURE: Patient was brought to the operating room, placed in supine position. After general induction, the abdomen had been prepped and draped in standard sterile fashion. The robotic da Natalia XI system was primed. After a timeout protocol was performed, the patient had been prepped and draped in standard sterile fashion. The patient was injected with indocyanine green. A 5 mm 0 degrees laparoscopic trocar entry was performed along the left upper quadrant. The abdomen insufflated to 15 mmHg pressure which was tolerated well. Diagnostic laparoscopy demonstrated no injury to bowel viscera or mesentery. The liver surface was unremarkable. Next, two 8 mm robotic ports were placed along the right upper abdomen. The camera 8-mm port was maintained along the epigastrium. Another 8 mm port was placed along the left upper abdominal wall after exchanging the 5 mm port. Please note that the ports were placed at least 10 to 15 cm away from the target anatomy of the gallbladder. The robot was docked along the left lateral abdomen. The patient was repositioned in reverse Trendelenburg position. Using a grasper for arm 3, a grasper for arm 4, including hook cautery for arm 1, the robotic system was docked and primed as described. Instruments were interchanged by the wet process miller head assistant including hook cautery, Bovie cautery and clip appliers. I had sat at the console. The gallbladder was scarred with peritoneal adhesions. Lysis of adhesions was performed to free the gallbladder from the surrounding tissues. Next attention was brought to the infundibulum and cystic structures. The infundibulum and cystic duct were dissected free from surrounding tissues. The cystic duct was isolated. FIREFLY was used to identify the cystic artery and cystic structures. A critical view of safety was obtained. Large PLASTIC clips were used throughout the entire case. Using a clip harness tier, 2 clips were placed at the junction of the infundibulum and cystic duct. The cystic duct was divided between clips. Next, the cystic artery was similarly clipped and cauterized. Electro-Bovie cautery was used to remove the gallbladder from the hepatic fossa. Hemostasis was checked and found to be adequate. The robot was undocked. I re-scrubbed into the case. Using a 10 mm Endo Catch bag via the left upper quadrant incision, the specimen was removed from the abdominal cavity. All pneumoperitoneum instruments were evacuated from the abdominal cavity. The incisions were reapproximated using 4-0 Monocryl in an interrupted subcuticular fashion. Fascial defects were less than 8 mm in size. Please note along the trocar sites, local anesthetic was placed as a field block prior to insertion of all instruments. Liquid glue was applied to the skin. At the end of the procedure needle, sponge, and instrument count had been verified correct by the alarm technician. The patient was transferred to postanesthesia care unit in stable condition. Intraoperative films were shared with the patient's family. Plan - Discharge Summary Discharge Rx Participant: Yes New Discharge Prescriptions: Continue Levothyroxine Sodium [Synthroid] 75 mcg PO DAILY atenoloL [Tenormin] 25 mg PO DAILY DULoxetine HCL [Cymbalta] 60 mg PO BID buPROPion XL [Wellbutrin XL] 150 mg PO DAILY Multivitamins, Thera [Multivitamin (formulary)] 1 tab PO DAILY tiZANidine HCL [Zanaflex] 4 mg PO TID PRN PRN Reason: muscle spasms Gabapentin [Neurontin] 400 mg PO TID Magnesium 250 mg PO DAILY ALPRAZolam [Xanax] 0.5 mg PO BID PRN PRN Reason: Anxiety Pravastatin Sodium [Pravachol] 40 mg PO HS L.acidoph,Paracasei, B.lactis [Probiotic] 1 each PO DAILY Calcium Carbonate [Calcium] 600 mg PO DAILY Ascorbic Acid [Vitamin C] 1,000 mg PO DAILY Hydrocodone/Acetaminophen [Hydrocodone/Acetaminophen 5-325] 1.5 tab PO Q8H PRN PRN Reason: Pain Cholecalciferol (Vitamin D3) [Vitamin D3 (125 MCG = 5,000 IU)] 125 mcg PO DAILY Zinc 50 mg PO DAILY Milk Thistle 175 mg PO DAILY Ginseng 100 mg PO DAILY Acetaminophen [Tylenol] 650 mg PO Q8H PRN PRN Reason: Pain Cetirizine HCl [Zyrtec] 10 mg PO DAILY Vitamin B Complex 1 each PO DAILY Ubidecarenone [Co Q-10] 100 mg PO DAILY Turmeric Root Extract [Turmeric Curcumin] 500 mg PO DAILY Ginkgo Biloba [place] Extract [Ginkgo] 60 mg PO DAILY Discharge Medication List Levothyroxine Sodium [Synthroid] 75 mcg PO DAILY 03/25/16 [History] atenoloL [Tenormin] 25 mg PO DAILY 01/06/17 [History] DULoxetine HCL [Cymbalta] 60 mg PO BID 09/11/17 [History] Multivitamins, Thera [Multivitamin (formulary)] 1 tab PO DAILY 01/16/18 [History] buPROPion XL [Wellbutrin XL] 150 mg PO DAILY 01/16/18 [History] tiZANidine HCL [Zanaflex] 4 mg PO TID PRN 01/16/18 [History] Gabapentin [Neurontin] 400 mg PO TID 12/23/18 [History] ALPRAZolam [Xanax] 0.5 mg PO BID PRN 08/07/20 [History] Magnesium 250 mg PO DAILY 08/07/20 [History] Cholecalciferol (Vitamin D3) [Vitamin D3 (125 MCG = 5,000 IU)] 125 mcg PO DAILY 04/30/21 [History] Ginseng 100 mg PO DAILY 04/30/21 [History] Milk Thistle 175 mg PO DAILY 04/30/21 [History] Pravastatin Sodium [Pravachol] 40 mg PO HS 04/30/21 [History] Zinc 50 mg PO DAILY 04/30/21 [History] Acetaminophen [Tylenol] 650 mg PO Q8H PRN 03/07/22 [History] Ascorbic Acid [Vitamin C] 1,000 mg PO DAILY 04/24/22 [History] Calcium Carbonate [Calcium] 600 mg PO DAILY 04/24/22 [History] Cetirizine HCl [Zyrtec] 10 mg PO DAILY 04/24/22 [History] Ginkgo Biloba [place] Extract [Ginkgo] 60 mg PO DAILY 04/24/22 [History] Hydrocodone/Acetaminophen [Hydrocodone/Acetaminophen 5-325] 1.5 tab PO Q8H PRN 04/24/22 [History] L.acidoph,Paracasei, B.lactis [Probiotic] 1 each PO DAILY 04/24/22 [History] Turmeric Root Extract [Turmeric Curcumin] 500 mg PO DAILY 04/24/22 [History] Ubidecarenone [Co Q-10] 100 mg PO DAILY 04/24/22 [History] Vitamin B Complex 1 each PO DAILY 04/24/22 [History] Follow up Appointment(s)/Referral(s): Analisa Savage MD [STAFF PHYSICIAN] - 05/07/22 (TELEHEALTH) Patient Instructions/Handouts: *[facility] - Laparoscopic Cholecystectomy Discharge Instructions, *[facility] - Managing Your Pain After Surgery Without Opioids, Low Fat Diet (DC) Activity/Diet/Wound Care/Special Instructions: Recommend low-fat diet for the next 2 days. No lifting over 10 pounds in 2 weeks until May 09. May shower. No bath tub soaks for two weeks until May 09. Diet as tolerated. Use Tylenol, simethicone scheduled for the next 24-48 hours for best pain relief. Use ice along incisions for today to prevent swelling. Discharge Disposition: HOME SELF-CARE
[2022-04-25] MEDS ORDERED: HYDROcodone/APAP 5-325MG 1 EACH TAB ONE (18:57)
[2022-04-25] MEDS ORDERED: HYDROcodone/APAP 5-325MG 1 EACH TAB PO ONE (18:58)
[2022-04-25 19:20] VITALS: BP 138/55; PULSE 69
== END 2022-04-25 19:51 | disposition home or self-care (01) ==
LOC: OR 13:42
PROVIDERS: ATTEND Surgery Plastic and Reconstructive Surgery
DX: K80.10 Calculus of gallbladder with chronic cholecystitis without obstruction (principal); K66.0 Peritoneal adhesions (postprocedural) (postinfection); J30.2 Other seasonal allergic rhinitis; I11.9 Hypertensive heart disease without heart failure; E03.9 Hypothyroidism, unspecified; F41.9 Anxiety disorder, unspecified; M19.90 Unspecified osteoarthritis, unspecified site; E55.9 Vitamin D deficiency, unspecified; E78.5 Hyperlipidemia, unspecified; K44.9 Diaphragmatic hernia without obstruction or gangrene; N20.0 Calculus of kidney; K25.9 Gastric ulcer, unspecified as acute or chronic, without hemorrhage or perforation; K76.0 Fatty (change of) liver, not elsewhere classified; G89.4 Chronic pain syndrome; K21.9 Gastro-esophageal reflux disease without esophagitis; I25.2 Old myocardial infarction; Z85.3 Personal history of malignant neoplasm of breast; Z98.84 Bariatric surgery status; Z98.890 Other specified postprocedural states; Z90.710 Acquired absence of both cervix and uterus; Z98.51 Tubal ligation status; Z95.5 Presence of coronary angioplasty implant and graft; Z90.49 Acquired absence of other specified parts of digestive tract; Z87.891 Personal history of nicotine dependence; Z82.49 Family history of ischemic heart disease and other diseases of the circulatory system; Z80.1 Family history of malignant neoplasm of trachea, bronchus and lung; Z79.899 Other long term (current) drug therapy; Z79.1 Long term (current) use of non-steroidal anti-inflammatories (NSAID); Z88.0 Allergy status to penicillin
CPT/HCPCS: 80053; 85025; 47562; J2250; J0330; J1100; J2710; J0690; J2405; J3010; J2704; J1170; J1644; J2001; 88304

== ENCOUNTER → 2023-02-14 | Day surgery (SDC) | payer BC, MEDICARE ==
[2023-02-13 09:48] VITALS: BMI 25.2
[~2023-02-14] MED LIST changes: +ACETAMINOPHEN TAB 500 MG TAB PO PRN; -ACETAMINOPHEN TAB 500 MG TAB PO STA; +DEXAMETHASONE SOD PHOSPHATE 4 MG/ML 1 ML VIAL ONE; +GLYCOPYRROLATE 0.2 MG/ML 2 ML VIAL ONE; +HEPARIN SODIUM,PORCINE 5,000 UNIT/ML 1 ML VIAL SQ ONE; +HYDROmorphone 0.5 MG/0.5 ML SYRINGE IVP PRN; -INDOCYANINE GREEN 25 MG VIAL IV STA; +LACTATED RINGERS 1,000 ML IV SCH; +LIDOCAINE 1% INJ 10MG/ML (20 ML MDV) ONE; +LIDOCAINE 1%-EPI 1:100,000 50 ML VIAL SQ ONE; +MELOXICAM 7.5 MG TAB PO PRN; +MIDAZOLAM 2 MG/2 ML VIAL IV PRN; +MIDAZOLAM 2 MG/2 ML VIAL IVP ONE; +NEOSTIGMINE 1 MG/ML 10 ML VIAL ONE; +ONDANSETRON 4 MG/2 ML VIAL IVP PRN; +PROPOFOL 10 MG/ML 20 ML VIAL IV ONE; +Pre Op ABX Message 1 EACH MISC MISCELLANE ONE; +ROCURONIUM 10 MG/ML (5 ML VIAL) IV ONE; +ROPIVACAINE 5 MG/ML 30 ML VIAL ONE; -SCOPOLAMINE 1 MG/72 HR PATCH TRANSDERM STA; +SUCCINYLCHOLINE CHLORIDE 200 MG/10 ML VIAL IV ONE; +ceFAZolin 1,000 MG VIAL IVPB ONE; +fentaNYL (PF) 50 MCG/ML 2 ML AMP ONE
--- NOTE | 2023-02-14 07:35 | P.GSHP ---
History of Present Illness H&P Date: 02/14/23 CHIEF COMPLAINT: History of intra-abdominal adhesions HISTORY OF PRESENT ILLNESS: The patient is a 72-year-old female who presents with history of intra-abdominal adhesions from multiple prior surgeries including increasing abdominal pain for over 3 months. She now presents for diagnostic laparoscopy including lysis of adhesions. PAST MEDICAL HISTORY: Please see list. PAST SURGICAL HISTORY: Please see list. MEDICATIONS: Please see list. ALLERGIES: Please see list. SOCIAL HISTORY: No illicit drug use FAMILY HISTORY: No reports of Crohn disease or ulcerative colitis. REVIEW OF ORGAN SYSTEMS: CONSTITUTIONAL: No reports of fevers or chills. GI: Has change in bowel habits and gastric bypass. PHYSICAL EXAM: VITAL SIGNS: Stable GENERAL: Well-developed pleasant and in no acute distress. HEENT: No scleral icterus. Extraocular movements grossly intact. Moist buccal mucosa. NECK: Supple without lymphadenopathy. CHEST: Unlabored respirations. Equal bilateral excursions. CARDIOVASCULAR: Regular rate and rhythm. Distal 2+ pulses. ABDOMEN: Soft, diffuse abdominal tenderness. No peritonitis. MUSCULOSKELETAL: No clubbing, cyanosis, or edema. ASSESSMENT: 1. Diffuse abdominal pain. 2. History of multiple abdominal surgeries. 3. Intra-abdominal adhesions. PLAN: 1. Robotic lysis of adhesions were described in detail including risk of injury to the intestine, need for further surgery, and open technique. 2. DVT prophylaxis. 3. Antibiotic prophylaxis. Past Medical History Past Medical History: Cancer, Eye Disorder, Fibromyalgia, Hyperlipidemia, Liver Disease, Memory Impairment, Myocardial Infarction ([place]), Osteoarthritis ([place]), Skin Disorder, Thyroid Disorder Additional Past Medical History / Comment(s): Breast cancer with surgery & radiation tx ., heart murmur & irregular heartbeat., macular degeneration, kidney stone, constipation/diarrhea, fatty liver, hx silent [place]., Ryan CTS with numbness tingling and pain in hands and arms. ,takes tenormin for heart rate. , memory issues. , hx gastric bypass, uses service dog., states rash on arms & mosquito bites. Last Myocardial Infarction Date:: 2009 approx History of Any Multi-Drug Resistant Organisms: None Reported Past Surgical History: Appendectomy, Bariatric Surgery, Bowel Resection, Breast Surgery, Heart Catheterization, Hernia Repair, Hysterectomy, Orthopedic Surgery, Tubal Ligation Additional Past Surgical History / Comment(s): LT BREAST LUMPECTOMY w/ LYMPH NODE REMOVED, THYROID NODULE removed, LYSIS OF ADHESIONS, surgery fx rt foot , gastric bypass and repair of hiatal hernia 11-21-16, EGD, COLONOSCOPY, ESOPHAGUS STRETCHED JUNE 2017, BOWEL RESECTION 08/2020. umbilical hernia repair . rt shoulder rotator cuff . Past Anesthesia/Blood Transfusion Reactions: No Reported Reaction, Motion Sickness Additional Past Anesthesia/Blood Transfusion Reaction / Comment(s): no blood transfusions Past Psychological History: Anxiety, Depression, Panic Disorder Additional Psychological History / Comment(s): pt has certified service dog she will bring with her, with appropriate papers Smoking Status: Former smoker Past Alcohol Use History: None Reported Additional Past Alcohol Use History / Comment(s): Smoked for 25 yrs , SMOKED 1 PPD, QUIT 2008 Past Drug Use History: None Reported - Past Family History Father Family Medical History: Cancer, Deep Vein Thrombosis (DVT), Myocardial Infarction ([place]) Additional Family Medical History / Comment(s): [place] lung Mother Family Medical History: Cancer Additional Family Medical History / Comment(s): SKIN CANCER, brain bleed. Brother(s) Family Medical History: Cancer, Deep Vein Thrombosis (DVT) Additional Family Medical History / Comment(s): prostate. other brother ? [place] . Other brother open heart Medications and Allergies Home Medications Medication Instructions Recorded Confirmed Type Levothyroxine Sodium [Synthroid] 75 mcg PO [id number] 03/25/16 02/13/23 History atenoloL [Tenormin] 25 mg PO DAILY 01/06/17 02/13/23 History DULoxetine HCL [Cymbalta] 60 mg PO BID 09/11/17 02/13/23 History Multivitamins, Thera [Multivitamin 1 tab PO DAILY 01/16/18 02/13/23 History (formulary)] buPROPion XL [Wellbutrin XL] 150 mg PO DAILY 01/16/18 02/13/23 History tiZANidine HCL [Zanaflex] 4 mg PO TID PRN 01/16/18 02/13/23 History Gabapentin [Neurontin] 400 mg PO TID 12/23/18 02/13/23 History ALPRAZolam [Xanax] 0.5 mg PO BID PRN 08/07/20 02/13/23 History Magnesium 250 mg PO HS 08/07/20 02/13/23 History Cholecalciferol (Vitamin D3) 125 mcg PO DAILY 04/30/21 02/13/23 History [Vitamin D3 (125 MCG = 5,000 IU)] Ginseng 100 mg PO DAILY 04/30/21 02/13/23 History Milk Thistle 175 mg PO DAILY 04/30/21 02/13/23 History Pravastatin Sodium [Pravachol] 40 mg PO HS 04/30/21 02/13/23 History Zinc 50 mg PO DAILY 04/30/21 02/13/23 History Ascorbic Acid [Vitamin C] 1,000 mg PO DAILY 04/24/22 02/13/23 History Cetirizine HCl [Zyrtec] 10 mg PO DAILY PRN 04/24/22 02/13/23 History Ginkgo Biloba [place] Extract [Ginkgo] 120 mg PO DAILY 04/24/22 02/13/23 History L.acidoph,Paracasei, B.lactis 1 each PO HS 04/24/22 02/13/23 History [Probiotic] Turmeric Root Extract [Turmeric 500 mg PO DAILY 04/24/22 02/13/23 History Curcumin] Ubidecarenone [Co Q-10] 100 mg PO DAILY 04/24/22 02/13/23 History Vitamin B Complex 1 each PO DAILY 04/24/22 02/13/23 History Acetaminophen [Tylenol Arthritis] 1,300 mg PO BID PRN 02/13/23 02/13/23 History HYDROcodone/APAP 7.5-325MG [[place] 1 tab PO DIRECTED PRN 02/13/23 02/13/23 History 7.5-325] Neuriva Supplement 1 dose PO DAILY 02/13/23 History Allergies Allergy/AdvReac Type Severity Reaction Status Date / Time Penicillins Allergy Dyspnea Verified 02/13/23 08:55 grass pollen-perennial rye, AdvReac Itching Verified 02/13/23 08:55 standar house dust AdvReac Itching Verified 02/13/23 08:55
[2023-02-14 11:11] VITALS: TEMP 97
[2023-02-14 11:35] LABS: ALT 26 U/L (4-34); African American GFR (CKD) >90 (>60 ml/min/1.73 sqM); Albumin 4.2 g/dL (3.5-5.0); Anion Gap 10 mmol/L; Blood Urea Nitrogen 19 mg/dL (7-17); Calcium 9.3 mg/dL (8.4-10.2); Carbon Dioxide 25 mmol/L (22-30); Chloride 106 mmol/L (98-107); Glucose 90 mg/dL (74-99); Non-African American GFR(CKD) >90 (>60 ml/min/1.73 sqM); Sodium 141 mmol/L (137-145); Total Bilirubin 0.8 mg/dL (0.2-1.3); Total Protein 6.8 g/dL (6.3-8.2)
[2023-02-14 11:37] LABS: AST 45 U/L (14-36); Alkaline Phosphatase 56 U/L (38-126); Potassium 4.8 mmol/L (3.5-5.1)
[2023-02-14 11:44] LABS: HCT 34.2 % (34.0-46.0); HGB 11.4 gm/dL (11.4-16.0); Hypochromasia Slight; MCH 29.5 pg (25.0-35.0); MCHC 33.3 g/dL (31.0-37.0); MCV 88.7 fL (80.0-100.0); Mean Platelet Volume 8.6; Platelet Count 240 k/uL (150-450); RBC 3.85 m/uL (3.80-5.40); RDW 14.4 % (11.5-15.5); WBC 3.4 k/uL (3.8-10.6)
--- NOTE | 2023-02-14 12:53 | P.ANPRN ---
Procedure Note - Anesthesia - Nerve Block Performed Bilateral Erector Spinae Single Time Out Performed: Yes Date of Procedure: 02/14/23 Procedure Start Time: 12:04 Procedure Stop Time: 12:15 Location of Patient: PreOp Indication: Acute Post-Operative Pain, Requested by Surgeon Sedation Type: Sedate with meaningful contact maintained Preparation: Sterile Prep, Sterile Dressing Position: Prone Catheter: None Needle Types: Facet Needle Gauge: 20 Ultrasound used to visualize needle placement: Yes Ultrasound used to observe medication spread: Yes Injectate: Other (see comment) (Ropivacaine 0.25% + decadron 2 mg 30 ml per side) Blood Aspirated: No Pain Paresthesia on Injection Noted: No Resistance on Injection: Normal Image Stored and Saved: Yes Events: Uneventful and Well Tolerated
[2023-02-14 13:52] LABS: Basophils # (M) 0.03 k/uL (0-0.2); Lymphocytes # (M) 1.12 k/uL (1.0-4.8); Neutrophils # (M) 1.94 k/uL (1.3-7.7); Neutrophils % (M) 57 %; Nucleated Red Blood Cells 0 /100 WBC (0-0); Total Cells Counted 100
--- NOTE | 2023-02-14 14:27 | P.OP ---
Date of Procedure: 02/14/23 Description of Procedure: SURGEON: TOSHA SAVAGE MD PREOPERATIVE DIAGNOSES: 1. Left upper quadrant abdominal pain 2. Left lower quadrant abdominal pain 3. Seasonal allergies. 4. Hypertensive heart disease 5. Hypothyroidism. 6. Anxiety. 7. Osteoarthritis. 8. Vitamin D deficiency. 9. Hyperlipidemia. 10. Hiatal hernia 11. Previous history of breast cancer. 12. Kidney stones. 13. Stomach ulcers 14. Fatty liver disease 15. Previous history of myocardial infarction. 16. Chronic pain syndrome 17. Gastroesophageal reflux disease 18. History of multiple abdominal surgeries with adhesions 19. Status post gastric bypass POSTOPERATIVE DIAGNOSES: 1. Peritoneal adhesions, left upper lower abdomen 2. Left upper and lower quadrant abdominal pain due to adhesions 3. Seasonal allergies. 4. Hypertensive heart disease 5. Hypothyroidism. 6. Anxiety. 7. Osteoarthritis. 8. Vitamin D deficiency. 9. Hyperlipidemia. 10. Hiatal hernia 11. Previous history of breast cancer. 12. Kidney stones. 13. Stomach ulcers 14. Fatty liver disease 15. Previous history of myocardial infarction. 16. Chronic pain syndrome 17. Gastroesophageal reflux disease 18. History of multiple abdominal surgeries with adhesions 19. Status post gastric bypass OPERATION: 1. Robotic-assisted da Natalia Xi laparoscopic with lysis of adhesions ESTIMATED BLOOD LOSS: 5 mL. SPECIMENS REMOVED: None. COMPLICATIONS: None. OPERATIVE FINDINGS: 1. No ventral hernias identified. 2. Complete scarring of Zamora's defect and jejunojejunostomy defect 3. Greater omental adhesions along jejunojejunostomy left upper lower quadrant causing intermittent volvulus released 4. Abnormal retroperitoneal adhesions left upper quadrant lysed INDICATIONS: The patient is a 72-year-old female who presents with epigastric abdominal pain including left upper and lower quadrant abdominal pain. Surgical intervention with diagnostic laparoscopy, lysis of adhesions were described. Informed consent was obtained. Robotic assisted laparoscopic approach was described. Benefits and risks of the procedure including but not limited to bleeding, infection, injury to the small bowel was described. Informed consent was obtained. DESCRIPTION OF PROCEDURE: Patient was brought to the operating room, placed in supine position. After general induction, the abdomen had been prepped and draped in standard sterile fashion. The robotic da Natalia XI system was primed. After a timeout protocol was performed, the patient had been prepped and draped in standard sterile fashion. The robot was docked along the right lateral abdomen. The patient was repositioned in with right side up. Please note prior to docking of the robot; however, a 5 mm 0 degrees laparoscopic trocar entry was performed along the left upper quadrant. The abdomen was insufflated to 15 mmHg pressure which she tolerated well. Diagnostic laparoscopy was performed. Next, three 8 mm robotic ports were placed along the right lateral abdominal wall. The camera 8-mm port was maintained along mid-lateral abdomen. Please note that the ports were placed at least 10 to 15 cm away from the target anatomy. Instruments including graspers and vessel sealer were interchanged by the hospital medical assistant. I had sat at the console. No evidence of incisional hernia was identified. The small bowel from the ambrose limb to distal ileum was inspected. The small bowel was investigated from the terminal ileum to the ligament of Treitz with finding of redundant mesentery with active small bowel volvulus involving the jejunojejunostomy from a normal greater omentum to retroperitoneal adhesions. Adhesions were lysed using vessel sealer. Complete scarring of jejunostomy mesenteric defect. Abnormal adhesions to the jejunojejunostomy was identified and divided. The mesentery small bowel volvulus were reduced. No herniation of bowel was found along the Zamora defect or jejunojejunostomy mesenteric defect. The terminal ileum and cecum was unremarkable. The small bowel was viable.The robot was undocked. All pneumoperitoneum instruments were evacuated from the abdominal cavity. The incisions were reapproximated using 4-0 Monocryl in an interrupted subcuticular fashion. Please note along the trocar sites, local anesthetic was placed as a field block prior to insertion of all instruments. Exofin was applied to the skin. At the end of the procedure needle, sponge, and instrument count had been verified correct by the surgical supply assistant. The patient was transferred to postanesthesia care unit in stable condition. Plan - Discharge Summary Discharge Rx Participant: No New Discharge Prescriptions: New Simethicone [Gas-X] 125 mg PO AC-TID PRN #20 capsule PRN Reason: Pain Acetaminophen Tab [Tylenol Tab] 1,000 mg PO Q6HR PRN #30 tablet PRN Reason: Pain Continue Levothyroxine Sodium [Synthroid] 75 mcg PO AC-BRKFST atenoloL [Tenormin] 25 mg PO DAILY DULoxetine HCL [Cymbalta] 60 mg PO BID buPROPion XL [Wellbutrin XL] 150 mg PO DAILY Multivitamins, Thera [Multivitamin (formulary)] 1 tab PO DAILY tiZANidine HCL [Zanaflex] 4 mg PO TID PRN PRN Reason: muscle spasms Gabapentin [Neurontin] 400 mg PO TID Magnesium 250 mg PO HS ALPRAZolam [Xanax] 0.5 mg PO BID PRN PRN Reason: Anxiety Pravastatin Sodium [Pravachol] 40 mg PO HS L.acidoph,Paracasei, B.lactis [Probiotic] 1 each PO HS Ascorbic Acid [Vitamin C] 1,000 mg PO DAILY HYDROcodone/APAP 7.5-325MG [[place] 7.5-325] 1 tab PO DIRECTED PRN PRN Reason: Pain Neuriva Supplement 1 dose PO DAILY Cholecalciferol (Vitamin D3) [Vitamin D3 (125 MCG = 5,000 IU)] 125 mcg PO DAILY Zinc 50 mg PO DAILY Milk Thistle 175 mg PO DAILY Ginseng 100 mg PO DAILY Cetirizine HCl [Zyrtec] 10 mg PO DAILY PRN PRN Reason: Allergy Symptoms Vitamin B Complex 1 each PO DAILY Ubidecarenone [Co Q-10] 100 mg PO DAILY Turmeric Root Extract [Turmeric Curcumin] 500 mg PO DAILY Ginkgo Biloba [place] Extract [Ginkgo] 120 mg PO DAILY Acetaminophen [Tylenol Arthritis] 1,300 mg PO BID PRN PRN Reason: Pain Discharge Medication List Levothyroxine Sodium [Synthroid] 75 mcg PO AC-BRKFST 03/25/16 [History] atenoloL [Tenormin] 25 mg PO DAILY 01/06/17 [History] DULoxetine HCL [Cymbalta] 60 mg PO BID 09/11/17 [History] Multivitamins, Thera [Multivitamin (formulary)] 1 tab PO DAILY 01/16/18 [History] buPROPion XL [Wellbutrin XL] 150 mg PO DAILY 01/16/18 [History] tiZANidine HCL [Zanaflex] 4 mg PO TID PRN 01/16/18 [History] Gabapentin [Neurontin] 400 mg PO TID 12/23/18 [History] ALPRAZolam [Xanax] 0.5 mg PO BID PRN 08/07/20 [History] Magnesium 250 mg PO HS 08/07/20 [History] Cholecalciferol (Vitamin D3) [Vitamin D3 (125 MCG = 5,000 IU)] 125 mcg PO DAILY 04/30/21 [History] Ginseng 100 mg PO DAILY 04/30/21 [History] Milk Thistle 175 mg PO DAILY 04/30/21 [History] Pravastatin Sodium [Pravachol] 40 mg PO HS 04/30/21 [History] Zinc 50 mg PO DAILY 04/30/21 [History] Ascorbic Acid [Vitamin C] 1,000 mg PO DAILY 04/24/22 [History] Cetirizine HCl [Zyrtec] 10 mg PO DAILY PRN 04/24/22 [History] Ginkgo Biloba [place] Extract [Ginkgo] 120 mg PO DAILY 04/24/22 [History] L.acidoph,Paracasei, B.lactis [Probiotic] 1 each PO HS 04/24/22 [History] Turmeric Root Extract [Turmeric Curcumin] 500 mg PO DAILY 04/24/22 [History] Ubidecarenone [Co Q-10] 100 mg PO DAILY 04/24/22 [History] Vitamin B Complex 1 each PO DAILY 04/24/22 [History] Acetaminophen [Tylenol Arthritis] 1,300 mg PO BID PRN 02/13/23 [History] HYDROcodone/APAP 7.5-325MG [[place] 7.5-325] 1 tab PO DIRECTED PRN 02/13/23 [ History] Neuriva Supplement 1 dose PO DAILY 02/13/23 [History] Acetaminophen Tab [Tylenol Tab] 1,000 mg PO Q6HR PRN #30 tablet 02/14/23 [Rx] Simethicone [Gas-X] 125 mg PO AC-TID PRN #20 capsule 02/14/23 [Rx] Follow up Appointment(s)/Referral(s): Tosha Savage MD [STAFF PHYSICIAN] - 02/18/23 ([facility]LE[facility] - WILL CALL YOU BETWEEN 8 am to 8 pm) Patient Instructions/Handouts: *[facility] - Managing Your Pain After Surgery Without Opioids, *[facility] - (Anesthesia) Discharge Instructions Outpatient Surgery, Lysis of Abdominal Adhesions (GEN) Activity/Diet/Wound Care/Special Instructions: [facility] - WILL CALL YOU BETWEEN 8 am to 8 pm No lifting over 10 pounds in 2 weeks until Feb 28August shower. No bath tub soaks for two weeks until Feb 28 Diet as tolerated. Use Tylenol, simethicone and ibuprofen or Aleve scheduled for the next 24-48 hours for best pain relief. Use ice along incisions for today to prevent swelling. Discharge Disposition: HOME SELF-CARE
[2023-02-14 15:02] VITALS: RESP 14
[2023-02-14 15:44] VITALS: BP 108/53; PULSE 68
== END | disposition home or self-care (01) ==
LOC: OR 10:31
PROVIDERS: ATTEND Surgery Plastic and Reconstructive Surgery
DX: K66.0 Peritoneal adhesions (postprocedural) (postinfection) (principal); J30.2 Other seasonal allergic rhinitis; I11.9 Hypertensive heart disease without heart failure; E03.9 Hypothyroidism, unspecified; F41.9 Anxiety disorder, unspecified; M19.90 Unspecified osteoarthritis, unspecified site; E55.9 Vitamin D deficiency, unspecified; E78.5 Hyperlipidemia, unspecified; K44.9 Diaphragmatic hernia without obstruction or gangrene; N20.0 Calculus of kidney; K25.9 Gastric ulcer, unspecified as acute or chronic, without hemorrhage or perforation; K76.0 Fatty (change of) liver, not elsewhere classified; I25.2 Old myocardial infarction; G89.4 Chronic pain syndrome; F32.A Depression, unspecified; M79.7 Fibromyalgia; K21.9 Gastro-esophageal reflux disease without esophagitis; Z85.3 Personal history of malignant neoplasm of breast; Z79.899 Other long term (current) drug therapy; Z82.49 Family history of ischemic heart disease and other diseases of the circulatory system; Z90.49 Acquired absence of other specified parts of digestive tract; Z90.710 Acquired absence of both cervix and uterus; Z98.51 Tubal ligation status; Z98.84 Bariatric surgery status; Z87.891 Personal history of nicotine dependence; Z80.1 Family history of malignant neoplasm of trachea, bronchus and lung; Z88.0 Allergy status to penicillin
CPT/HCPCS: 64999; 80053; 85025; 44180; J2250; J0330; J1644; J1100; J2710; J2405; J0690; J2001; J3010; J2795; J2704

== ENCOUNTER 2023-10-01 09:33 | Day surgery (SDC) | payer MEDICARE ==
[2023-09-30 10:38] VITALS: BMI 24.9
--- NOTE | 2023-10-01 07:37 | P.GSHP ---
History of Present Illness H&P Date: 10/01/23 CHIEF COMPLAINT: GERD and colon screen HISTORY OF PRESENT ILLNESS: The patient is a 72-year-old female who presents with gastroesophageal reflux disease and need for colon screen. Upper and lower endoscopy were offered for further evaluation and management. PAST MEDICAL HISTORY: Please see list. PAST SURGICAL HISTORY: Please see list. MEDICATIONS: Please see list. ALLERGIES: Please see list. SOCIAL HISTORY: No illicit drug use FAMILY HISTORY: No reports of Crohn disease or ulcerative colitis. REVIEW OF ORGAN SYSTEMS: CONSTITUTIONAL: No reports of fevers or chills. GI: Denies any blood in stools or constipation. PHYSICAL EXAM: VITAL SIGNS: Stable GENERAL: Well-developed pleasant in no acute distress. HEENT: No scleral icterus. Extraocular movements grossly intact. Moist buccal mucosa. NECK: Supple without lymphadenopathy. CHEST: Unlabored respirations. Equal bilateral excursions. CARDIOVASCULAR: Regular rate and rhythm. Distal 2+ pulses. ABDOMEN: Soft, nondistended. MUSCULOSKELETAL: No clubbing, cyanosis, or edema. ASSESSMENT: 1. Gastroesophageal reflux disease 2. Colon screen. PLAN: 1. Recommend proceeding with an upper and lower endoscopy Past Medical History Past Medical History: Cancer, Eye Disorder, Fibromyalgia, Hyperlipidemia, Liver Disease, Memory Impairment, Myocardial Infarction (SC), Osteoarthritis (OA), Skin Disorder, Thyroid Disorder Additional Past Medical History / Comment(s): Breast cancer with surgery & radiation tx, heart murmur & irregular heartbeat, macular degeneration, kidney stone, fatty liver, hx silent SC, Ryan CTS with numbness tingling and pain in hands and arms, takes tenormin for heart rate, uses service dog for panic disorder, chronic pain Last Myocardial Infarction Date:: 2009 approx History of Any Multi-Drug Resistant Organisms: None Reported Past Surgical History: Appendectomy, Bariatric Surgery, Bowel Resection, Breast Surgery, Heart Catheterization, Hernia Repair, Hysterectomy, Orthopedic Surgery, Tubal Ligation Additional Past Surgical History / Comment(s): LT BREAST LUMPECTOMY w/ LYMPH NODE REMOVED, THYROID NODULE REMOVED, LYSIS OF ADHESIONS, surgery fx rt foot, EGD, COLONOSCOPY, ESOPHAGUS STRETCHED, umbilical and esophageal hernia repair, rt shoulder rotator cuff, spinal stimulator placed Past Anesthesia/Blood Transfusion Reactions: No Reported Reaction, Motion Sickness Additional Past Anesthesia/Blood Transfusion Reaction / Comment(s): no blood transfusions Past Psychological History: Anxiety, Depression, Panic Disorder Additional Psychological History / Comment(s): pt has certified service dog with appropriate papers Smoking Status: Former smoker Past Alcohol Use History: None Reported Additional Past Alcohol Use History / Comment(s): Smoked for 25 yrs , SMOKED 1 PPD, QUIT 2008 Past Drug Use History: None Reported - Past Family History Father Family Medical History: Cancer, Deep Vein Thrombosis (DVT), Myocardial Infarction (SC) Additional Family Medical History / Comment(s): CA lung Mother Family Medical History: Cancer Additional Family Medical History / Comment(s): SKIN CANCER, brain bleed. Brother(s) Family Medical History: Cancer, Deep Vein Thrombosis (DVT) Additional Family Medical History / Comment(s): prostate. other brother ? SC . Other brother open heart Medications and Allergies Home Medications Medication Instructions Recorded Confirmed Type Levothyroxine Sodium [Synthroid] 75 mcg PO AC-BRKFST 03/25/16 09/30/23 History atenoloL [Tenormin] 25 mg PO DAILY 01/06/17 09/30/23 History DULoxetine HCL [Cymbalta] 60 mg PO BID 09/11/17 09/30/23 History Multivitamins, Thera [Multivitamin 1 tab PO DAILY 01/16/18 09/30/23 History (formulary)] buPROPion XL [Wellbutrin XL] 150 mg PO DAILY 01/16/18 09/30/23 History tiZANidine HCL [Zanaflex] 4 mg PO TID PRN 01/16/18 09/30/23 History Gabapentin [Neurontin] 600 mg PO TID 12/23/18 09/30/23 History ALPRAZolam [Xanax] 0.5 mg PO BID PRN 08/07/20 09/30/23 History Cholecalciferol (Vitamin D3) 125 mcg PO DAILY 04/30/21 09/30/23 History [Vitamin D3 (125 MCG = 5,000 IU)] Ginseng 100 mg PO DAILY 04/30/21 09/30/23 History Milk Thistle 175 mg PO DAILY 04/30/21 09/30/23 History Pravastatin Sodium [Pravachol] 40 mg PO HS 04/30/21 09/30/23 History Zinc 50 mg PO DAILY 04/30/21 09/30/23 History Ascorbic Acid [Vitamin C] 1,000 mg PO DAILY 04/24/22 09/30/23 History Ginkgo Biloba [place] Extract [Ginkgo] 120 mg PO DAILY 04/24/22 09/30/23 History L.acidoph,Paracasei, B.lactis 1 each PO DAILY 04/24/22 09/30/23 History [Probiotic] Turmeric Root Extract [Turmeric 1,000 mg PO DAILY 04/24/22 09/30/23 History Curcumin] Ubidecarenone [Co Q-10] 100 mg PO DAILY 04/24/22 09/30/23 History Vitamin B Complex 1 each PO DAILY 04/24/22 09/30/23 History Acetaminophen [Tylenol Arthritis] 1,300 mg PO BID PRN 02/13/23 09/30/23 History HYDROcodone/APAP 7.5-325MG [[place] 1 tab PO DIRECTED PRN 02/13/23 09/30/23 History 7.5-325] Calcium Crb,Cit/D3/Min34/Tisha 1 each PO DAILY 09/30/23 09/30/23 History [Citracal Plus Bone Density Tab] Fish Oil/Dha/Epa [Fish Oil 1,200 1 each PO DAILY 09/30/23 09/30/23 History mg Fish Oil] Garlic Extract [Garlic] 400 mg PO DAILY 09/30/23 09/30/23 History Magnesium Citrate 125 mg PO HS 09/30/23 09/30/23 History Nf-Beet Root 1 tab PO DAILY 09/30/23 History Nf-Dynamic Brain Support 1 tab PO DAILY 09/30/23 09/30/23 History Psyllium Husk [Fiber Capsule] 0.4 gm PO DIRECTED 09/30/23 09/30/23 History Allergies Allergy/AdvReac Type Severity Reaction Status Date / Time Penicillins Allergy Dyspnea Verified 09/30/23 10:18 grass pollen-perennial rye, AdvReac Itching Verified 09/30/23 10:18 standar house dust AdvReac Itching Verified 09/30/23 10:18
[2023-10-01 10:06] VITALS: RESP 16; TEMP 97.4
[2023-10-01] MEDS: LACTATED RINGERS 1,000 ML IV ONE ×2 (10:19→10:31)
[2023-10-01] MEDS ORDERED: LIDOCAINE 1% INJ 10MG/ML (20 ML MDV) ONE (10:36)
[2023-10-01] MEDS ORDERED: PROPOFOL 10 MG/ML 20 ML VIAL IV ONE (10:36)
[2023-10-01 11:24] VITALS: BP 104/51; PULSE 54
--- NOTE | 2023-10-01 11:31 | P.PCN ---
Date of Procedure: 10/01/23 Description of Procedure: PREOPERATIVE DIAGNOSIS: Anemia New leukemia Diverticulosis History of sigmoid colectomy POSTOPERATIVE DIAGNOSIS: Anemia New leukemia Diverticulosis History of sigmoid colectomy OPERATION: Colonoscopy to the cecum, ileocecal valve and appendiceal orifice. SURGEON: Analisa Savage MD. ANESTHESIA: MAC. INDICATIONS: The patient is a 72-year-old female who presents with new anemia including leukemia and cancer workup. Benefits and risks were described and informed consent was obtained. DESCRIPTION OF PROCEDURE: The patient had undergone prep. The patient had been brought into the operating room and laid in the left lateral decubitus position. After adequate intravenous sedation, the rectum was examined with 2% lidocaine jelly. No external hemorrhoids were encountered. The rectal tone was within normal limits. No lesions were palpated in the rectal vault. An Olympus colonoscope was advanced until the cecum, ileocecal valve and appendiceal orifice were clearly viewed. The prep was good. Scattered diverticulosis was encountered. Colorectal anastomosis was within normal limits. No colonic polyps were found. No evidence of focal colitis was found. Retroflexion of the scope demonstrated grade 1 internal hemorrhoids without active bleeding or inflammation. The colon was desufflated. The patient had tolerated the procedure well. Withdrawal time was over 6 minutes. FINDINGS: Aronchick preparation quality scale 2 (1-5) Internal hemorrhoids, grade 1 No external prolapsed hemorrhoids. No arteriovenous malformations. No adenomatous polyps. No focal colitis. RECOMMENDATIONS: Lower endoscopy 5 years, 2028 Plan - Discharge Summary Discharge Rx Participant: No New Discharge Prescriptions: Continue Levothyroxine Sodium [Synthroid] 75 mcg PO AC-BRKFST atenoloL [Tenormin] 25 mg PO DAILY DULoxetine HCL [Cymbalta] 60 mg PO BID buPROPion XL [Wellbutrin XL] 150 mg PO DAILY Multivitamins, Thera [Multivitamin (formulary)] 1 tab PO DAILY tiZANidine HCL [Zanaflex] 4 mg PO TID PRN PRN Reason: muscle spasms Gabapentin [Neurontin] 600 mg PO TID ALPRAZolam [Xanax] 0.5 mg PO BID PRN PRN Reason: Anxiety Pravastatin Sodium [Pravachol] 40 mg PO HS L.acidoph,Paracasei, B.lactis [Probiotic] 1 each PO DAILY Ascorbic Acid [Vitamin C] 1,000 mg PO DAILY HYDROcodone/APAP 7.5-325MG [[place] 7.5-325] 1 tab PO DIRECTED PRN PRN Reason: Pain Garlic Extract [Garlic] 400 mg PO DAILY Calcium Crb,Cit/D3/Min34/Tisha [Citracal Plus Bone Density Tab] 1 each PO DAILY Psyllium Husk [Fiber Capsule] 0.4 gm PO DIRECTED Nf-Dynamic Brain Support 1 tab PO DAILY Fish Oil/Dha/Epa [Fish Oil 1,200 mg Fish Oil] 1 each PO DAILY Nf-Beet Root 1 tab PO DAILY Cholecalciferol (Vitamin D3) [Vitamin D3 (125 MCG = 5,000 IU)] 125 mcg PO DAILY Zinc 50 mg PO DAILY Milk Thistle 175 mg PO DAILY Ginseng 100 mg PO DAILY Vitamin B Complex 1 each PO DAILY Ubidecarenone [Co Q-10] 100 mg PO DAILY Turmeric Root Extract [Turmeric Curcumin] 1,000 mg PO DAILY Ginkgo Biloba [place] Extract [Ginkgo] 120 mg PO DAILY Acetaminophen [Tylenol Arthritis] 1,300 mg PO BID PRN PRN Reason: Pain Magnesium Citrate 125 mg PO HS Discharge Medication List Levothyroxine Sodium [Synthroid] 75 mcg PO AC-BRKFST 03/25/16 [History] atenoloL [Tenormin] 25 mg PO DAILY 01/06/17 [History] DULoxetine HCL [Cymbalta] 60 mg PO BID 09/11/17 [History] Multivitamins, Thera [Multivitamin (formulary)] 1 tab PO DAILY 01/16/18 [History] buPROPion XL [Wellbutrin XL] 150 mg PO DAILY 01/16/18 [History] tiZANidine HCL [Zanaflex] 4 mg PO TID PRN 01/16/18 [History] Gabapentin [Neurontin] 600 mg PO TID 12/23/18 [History] ALPRAZolam [Xanax] 0.5 mg PO BID PRN 08/07/20 [History] Cholecalciferol (Vitamin D3) [Vitamin D3 (125 MCG = 5,000 IU)] 125 mcg PO DAILY 04/30/21 [History] Ginseng 100 mg PO DAILY 04/30/21 [History] Milk Thistle 175 mg PO DAILY 04/30/21 [History] Pravastatin Sodium [Pravachol] 40 mg PO HS 04/30/21 [History] Zinc 50 mg PO DAILY 04/30/21 [History] Ascorbic Acid [Vitamin C] 1,000 mg PO DAILY 04/24/22 [History] Ginkgo Biloba [place] Extract [Ginkgo] 120 mg PO DAILY 04/24/22 [History] L.acidoph,Paracasei, B.lactis [Probiotic] 1 each PO DAILY 04/24/22 [History] Turmeric Root Extract [Turmeric Curcumin] 1,000 mg PO DAILY 04/24/22 [History] Ubidecarenone [Co Q-10] 100 mg PO DAILY 04/24/22 [History] Vitamin B Complex 1 each PO DAILY 04/24/22 [History] Acetaminophen [Tylenol Arthritis] 1,300 mg PO BID PRN 02/13/23 [History] HYDROcodone/APAP 7.5-325MG [[place] 7.5-325] 1 tab PO DIRECTED PRN 02/13/23 [History] Calcium Crb,Cit/D3/Min34/Tisha [Citracal Plus Bone Density Tab] 1 each PO DAILY 09/30/23 [History] Fish Oil/Dha/Epa [Fish Oil 1,200 mg Fish Oil] 1 each PO DAILY 09/30/23 [History] Garlic Extract [Garlic] 400 mg PO DAILY 09/30/23 [History] Magnesium Citrate 125 mg PO HS 09/30/23 [History] Nf-Beet Root 1 tab PO DAILY 09/30/23 [History] Nf-Dynamic Brain Support 1 tab PO DAILY 09/30/23 [History] Psyllium Husk [Fiber Capsule] 0.4 gm PO DIRECTED 09/30/23 [History] Follow up Appointment(s)/Ref[facility] [place] [facility] - 10/08/23 4:00 pm Patient Instructions/Handouts: *[facility] - (Anesthesia) Discharge Instructions Outpatient Surgery, Esophageal Dilation (GEN), Diverticulosis (DC), Diverticulosis Diet (GEN) Activity/Diet/Wound Care/Special Instructions: Repeat colonoscopy 5 years, 2028 Discharge Disposition: HOME SELF-CARE
--- NOTE | 2023-10-01 11:34 | P.PCN ---
Date of Procedure: 10/01/23 Description of Procedure: PREOPERATIVE DIAGNOSIS: Dysphagia. Nausea with vomiting. POSTOPERATIVE DIAGNOSIS: Dysphagia. Morbid obesity. Gastrojejunal stricture without chronic ulcer without perforation Gastritis OPERATION: Esophagogastrojejunoscopy with balloon dilatation from 15 to 20 mm. SURGEON: Analisa Savage MD ANESTHESIA: MAC. INDICATIONS: The patient is a 72-year-old female who presents with a history of dysphagia. Benefits and risks of the procedure were described. Informed consent was o btained. DESCRIPTION: The patient was brought into the endoscopy suite and laid in the left lateral decubitus position. After a timeout was confirmed, the procedure was initiated. An Olympus gastroscope was passed along the posterior oropharynx down to the distal esophagus where the squamocolumnar junction was unremarkable. The gastric pouch was entered. A gastrojejunal stricture of 12 mm was found as the adult gastroscope was 15 mm in size. A [employer] balloon dilator was placed through the scope. Final insufflation up to 20 mm was performed with a total of 2 minutes. The scope was advanced up to 60 cm from the incisors into the Raad limb. The mucosa of the gastrojejunal anastomosis was intact. However chronic gastrojejunal marginal ulcer was encountered. No full-thickness injury was encountered. The GI tract was desufflated. The patient tolerated the procedure well. FINDINGS: Squamocolumnar junction unremarkable at 40 cm. Stricture of approximately 15 mm encountered. No chronic gastrojejunal ulceration encountered. Successful balloon dilatation to 20 mm. Gastritis along gastric pouch gastritis RECOMMENDATIONS: Upper endoscopy as needed.
== END 2023-10-01 11:49 | disposition home or self-care (01) ==
LOC: ORWHC2ENDO 09:33
PROVIDERS: ATTEND Surgery Plastic and Reconstructive Surgery
DX: K56.699 Other intestinal obstruction unspecified as to partial versus complete obstruction (principal); D64.9 Anemia, unspecified; C95.90 Leukemia, unspecified not having achieved remission; E66.01 Morbid (severe) obesity due to excess calories; E78.5 Hyperlipidemia, unspecified; F32.A Depression, unspecified; F41.9 Anxiety disorder, unspecified; I25.2 Old myocardial infarction; K21.9 Gastro-esophageal reflux disease without esophagitis; K76.0 Fatty (change of) liver, not elsewhere classified; M19.90 Unspecified osteoarthritis, unspecified site; M79.7 Fibromyalgia; Z79.899 Other long term (current) drug therapy; Z85.3 Personal history of malignant neoplasm of breast; Z87.891 Personal history of nicotine dependence; Z87.442 Personal history of urinary calculi; Z88.0 Allergy status to penicillin; Z90.49 Acquired absence of other specified parts of digestive tract; Z90.710 Acquired absence of both cervix and uterus; Z98.890 Other specified postprocedural states
CPT/HCPCS: 45378; 43249; J2001; J2704; C1726

== ENCOUNTER → 2023-10-27 | Outpatient (CLI) | payer MEDICARE ==
[2023-10-27 14:47] LABS: Partial Thromboplastin Time 24.9 sec (22.0-30.0); Prothrombin Time 10.7 sec (10.0-12.5)
[2023-10-27 20:56] LABS: HCT 39.8 % (37.2-46.3); HGB 12.7 g/dL (12.0-15.0); MCH 29.8 pg (27.0-32.0); MCHC 31.9 g/dL (32.0-37.0); MCV 93.4 FL (80.0-97.0); Mean Platelet Volume 11.1 FL (9.5-12.2); NRBC Per 100 WBC 0 X 10*3/uL (0.00-0.01); Platelet Count 219 X 10*3/uL (140-440); RBC 4.26 X 10*6/uL (4.10-5.20); RDW 19.9 % (11.5-14.5); WBC 4.73 X 10*3/uL (4.50-10.00)
[2023-10-27 22:45] LABS: % Iron Saturation 30.64 (12.00-45.00); Iron 106 UG/DL (50-170); Total Iron Binding Capacity 346 UG/DL (228-460)
[2023-10-27 22:46] LABS: LDL Cholesterol,Calculated 90.5 mg/dL (0.0-131.0)
[2023-10-27 22:50] LABS: Prealbumin 24.1 mg/dL (18.0-42.0)
[2023-10-28 00:16] LABS: BUN/Creat Ratio 46.86 Ratio (12.00-20.00); Blood Urea Nitrogen 32.8 mg/dL (9.0-27.0); Carbon Dioxide 26.6 mmol/L (21.6-31.8); Chloride 102 mmol/L (96-109); Glucose 104 mg/dL (70-110); Magnesium 2.4 mg/dL (1.5-2.4); Phosphorus 4.1 mg/dL (2.4-5.1); Potassium 4.4 mmol/L (3.5-5.5); Sodium 142 mmol/L (135-145)
[2023-10-28 00:17] LABS: ALT 61 U/L (8-44); AST 37 U/L (13-35); Albumin 4.4 g/dL (3.8-4.9); Albumin/Globulin Ratio 2.32 Ratio (1.60-3.17); Alkaline Phosphatase 62 U/L (41-126); Calcium 9.8 mg/dL (8.7-10.3); Globulin 1.9 g/dL (1.6-3.3); Total Bilirubin 0.3 mg/dL (0.3-1.2); Total Protein 6.3 g/dL (6.2-8.2)
[2023-10-28 11:33] LABS: Zinc, Serum 67 ug/dL (60-130)
[2023-10-29 06:25] LABS: Vitamin A 59 ug/dL (38-106)
[2023-10-29 12:10] LABS: Vit B1(Thiamine) 84 ug/L (38-122)
== END | disposition home or self-care (01) ==
LOC: LABWHC1 12:45
PROVIDERS: ATTEND Surgery Plastic and Reconstructive Surgery
DX: K50.90 Crohn's disease, unspecified, without complications (principal); N19 Unspecified kidney failure; T56.894A Toxic effect of other metals, undetermined, initial encounter; K74.1 Hepatic sclerosis; E55.9 Vitamin D deficiency, unspecified; E45 Retarded development following protein-calorie malnutrition; E44.1 Mild protein-calorie malnutrition; K91.2 Postsurgical malabsorption, not elsewhere classified; D50.8 Other iron deficiency anemias; E89.1 Postprocedural hypoinsulinemia
CPT/HCPCS: 36415; 80053; 80061; 82306; 82525; 82607; 82728; 82746; 83036; 83540; 83550; 83735; 83970; 84100; 84134; 84255; 84425; 84443; 84590; 84630; 85027; 85610; 85730

== ENCOUNTER → 2024-02-18 | Outpatient (CLI) | payer MEDICARE ==
[2024-02-18 14:44] VITALS: BP 137/81; PULSE 61; RESP 16; TEMP 98.3
--- NOTE | 2024-02-18 15:20 | P.BASOAP ---
Subjective Progress Note Date: 02/18/24 She is having strong smelling urine. She has dark colored urine. She has dark urine. Avoids cabbage foods. She is not eating citrus foods. She is not drinking enough fluids. She has poor sleep and gets 6 hrs of sleep. Drink more fluids. Objective - Vital Signs Vital signs: Vital Signs Temp 98.3 F 02/18/24 14:39 Pulse 61 02/18/24 14:39 Resp 16 02/18/24 14:39 BP 137/81 02/18/24 14:39 Pulse Ox FiO2 Intake & Output 02/17/24 02/18/24 02/18/24 18:59 06:59 18:59 Weight 59.874 kg Assessment/Plan Plan: Date: 02/18/24 Initial Weight: 97.522 kg Initial BMI: Current Weight: 59.874 kg Current BMI: Type of Surgery: Total Volume in Band: Previous Volume: Volume Removed: Volume Added: Band Size:
== END ==
LOC: BARWHC3 14:19
PROVIDERS: ATTEND Surgery Plastic and Reconstructive Surgery
DX: E66.01 Morbid (severe) obesity due to excess calories (principal); R82.998 Other abnormal findings in urine; Z68.24 Body mass index [BMI] 24.0-24.9, adult; Z88.0 Allergy status to penicillin; Z91.048 Other nonmedicinal substance allergy status; Z91.018 Allergy to other foods; Z87.891 Personal history of nicotine dependence
CPT/HCPCS: 99211

== ENCOUNTER → 2024-03-03 | Outpatient (CLI) | payer MEDICARE ==
[2024-03-03 14:50] VITALS: BP 117/77; PULSE 77; RESP 16; TEMP 97.8; BMI 25.3
--- NOTE | 2024-03-03 15:16 | P.BASOAP ---
Subjective Progress Note Date: 03/03/24 Urine is no longer strong in smell and color. She is drinking 80 oz. Her bowel are better. She was seen 2 weeks ago. No worse belly pain. She reports bloating and epigastric cramps. She reports "everything drops out of me," but improved. No twisting in the abdomen. Objective - Vital Signs Vital signs: Vital Signs Temp 97.8 F 03/03/24 14:38 Pulse 77 03/03/24 14:38 Resp 16 03/03/24 14:38 BP 117/77 03/03/24 14:38 Pulse Ox FiO2 Intake & Output 03/02/24 03/03/24 03/03/24 18:59 06:59 18:59 Weight 60.781 kg Assessment/Plan Plan: Date: 03/03/24 Initial Weight: 97.522 kg Initial BMI: 40.6 Current Weight: 60.781 kg Current BMI: 25.3 Type of Surgery: Total Volume in Band: Previous Volume: Volume Removed: Volume Added: Band Size:
== END ==
LOC: BARWHC3 12:59
PROVIDERS: ATTEND Surgery Plastic and Reconstructive Surgery
DX: E66.01 Morbid (severe) obesity due to excess calories (principal); Z88.0 Allergy status to penicillin; Z88.8 Allergy status to other drugs, medicaments and biological substances; Z87.891 Personal history of nicotine dependence; Z68.25 Body mass index [BMI] 25.0-25.9, adult
CPT/HCPCS: 99211

== ENCOUNTER → 2024-03-17 | Outpatient (CLI) | payer MEDICARE ==
[2024-03-17 16:09] LABS: ALT 46 U/L (8-44); AST 41 U/L (13-35); LDL Cholesterol,Calculated 99.5 mg/dL (0.0-131.0); VLDL Calculation 16.36 mg/dL (5.00-40.00)
== END | disposition home or self-care (01) ==
LOC: LABWHC1 12:38
PROVIDERS: ATTEND Internal Medicine Cardiovascular Disease
DX: E78.2 Mixed hyperlipidemia (principal)
CPT/HCPCS: 36415; 80061; 84450; 84460